=== PATIENT | female | born 1935 | race Caucasian/White ===

== ENCOUNTER 2017-04-15 06:50 | Day surgery (SDC) | payer MEDICARE, OTHER ==
[2017-04-14 16:14] VITALS: BMI 19.0
[~2017-04-15 06:50] MED LIST: FLU VACC TS2017-18 (>65YR) 0.5 ML SYRINGE IM ONE
[2017-04-15] MEDS ORDERED: diphenhydrAMINE HCl 25 MG CAP ONE (07:11)
[2017-04-15 07:33] VITALS: TEMP 98.2
--- NOTE | 2017-04-15 08:39 | SPC ---
NEPHROSTOMY TUBE EXCHANGE: History: Nephrostomy tube exchange. Dose: 2.2 minutes of fluoroscopy, 31.3 mGy*cm\S\2. Technique: The right sided nephrostomy tube was localized using fluoroscopy. A small amount of iodinated contra st was injected to confirm position. The 12 Iranian nephrostomy tube was cut. An 035 glide wire was i ntroduced into the catheter lumen. Tip was repositioned into the proximal right ureter. The old cath eter was removed and a new 12 Iranian nephrostomy tube was placed over the wire, distal tip in the ri ght renal pelvis. IMPRESSION: Successful right nephrostomy tube exchange. POS: [facility]
[2017-04-15 09:13] LABS: Hematocrit 35.8 % (36.0-47.0); Mean Platelet Volume 8.5 fL (7.4-10.4); Red Blood Cell (RBC) Count 4.58 mill/uL (4.20-5.40); White Blood Cell (WBC) Count 5.7 thou/uL (4.8-10.8)
[2017-04-15 09:37] LABS: Anion Gap 16 mmol/L (10-20); BUN (Urea Nitrogen) 36 mg/dL (9.8-20.1); Calc. Creatinine Clearance 20 mL/min (70-130); Calcium 9.7 mg/dL (7.8-10.44); Carbon Dioxide 23 mmol/L (23-31); Chloride 102 mmol/L (98-107); Estimated GFR-MDRD 25
[2017-04-15] MEDS ORDERED: Ioversol 68 % 50 ML VIAL ONE (12:20)
[2017-04-15] MEDS ORDERED: Promethazine HCl 25 MG/ML VIAL ONE (12:20)
[2017-04-15] MEDS ORDERED: Fentanyl 100 MCG/2 ML VIAL ONE (12:20)
[2017-04-15] MEDS ORDERED: cefTRIAXone\\ROCEPHIN 1 GM VIAL ONE (12:25)
[2017-04-15] MEDS ORDERED: Sodium Chloride 0.9% 100 ML ONE (12:26)
[2017-04-15] MEDS ORDERED: Hydrocortisone Sod Succ/PF 100 mg/2 ml Vial ONE (12:27)
[2017-04-15] MEDS ORDERED: Lidocaine 2% PF 10 ML AMP (For Epidural Use) ONE (12:50)
[2017-04-15] MEDS ORDERED: ePHEDrine/0.9% NaCl/PF SYRINGE 50 mg/10 ml ONE (12:50)
[2017-04-15] MEDS ORDERED: Propofol 200 MG/20 ML VIAL ONE (12:50)
[2017-04-15] MEDS ORDERED: Dexamethasone 20 MG/5 ML VIAL ONE (12:50)
[2017-04-15] MEDS ORDERED: PHENYLEPHRINE-NS 100 MCG/ML 10 ML SYRINGE ONE (12:50)
[2017-04-15] MEDS ORDERED: Glycopyrrolate 0.2 MG/ML 5 ML SYRINGE ONE (12:50)
--- NOTE | 2017-04-15 14:20 | OP ---
DATE OF PROCEDURE: 04/15/2017 PREOPERATIVE DIAGNOSIS: Left ureteral obstruction managed with left stent. POSTOPERATIVE DIAGNOSES: Left ureteral obstruction managed with left stent. PROCEDURE PERFORMED: Cysto removal of left stent, left retrograde, left stent replacement. SURGEON: Dr. Leo Warren ANESTHETIC: General. ESTIMATED BLOOD LOSS: Minimal. FINDINGS: She had no tumor, foreign body, or stone. The stent was able to be cannulated with a 0.0 38 guidewire, it was removed intact. A new stent placed was a 4.8 x 26 cm with no string left attac hed. OPERATIVE TECHNIQUE: After obtaining written and verbal consent from the patient and after receivin g IV antibiotics, she was taken to the operating suite. She was placed in the supine position on th e treatment table. PlexiPulses were placed on her lower extremities and turned on. She was given a general anesthetic, oral obturator intubation. She was placed in dorsal lithotomy position and tahir rilely prepped and draped. Cystoscopy was performed with a 22-Trinidadian sheath. This was well lubrica tyler and passed under direct vision through the female urethra into the bladder with aid of a 30-degr ee lens and video camera and monitor. The bladder was filled and emptied a number of times. The di stal end of the left double-J stent was grasped and brought out through the urethral meatus. A scou t KUB had been taken with the fluoroscopy unit initially. A 0.038 guidewire was fed through this s tent and up into the renal pelvis. The stent was removed intact over the guidewire, a 5 Trinidadian Poll ack catheter was placed over the guidewire. The guidewire was removed. Contrast injected to fill o ut the upper collecting system. The guidewire was replaced. The open-ended catheter was removed, a nd the stent was placed over the guidewire and pushed into place with aid of a pusher so its proxima l end coiled in the renal pelvis and its distal end coiled in the bladder when the wire was removed. The patient at this point was taken out of dorsal lithotomy position, awakened, extubated, and butch en by stretcher to the recovery room.
--- NOTE | 2017-04-15 14:55 | RAD ---
SINGLE INTRAOPERATIVE RADIOGRAPH ABDOMEN: History: Left ureteral obstruction. FINDINGS: Single AP view demonstrates the Cystoscope in place. There is catheter and injection of the left col lecting system and renal pelvis. A right sided nephrostomy tube is in place. IMPRESSION: Catheterization and injection of the left ureter. The left ureteral stent is being exchanged. POS: [facility]
[2017-04-15] MEDS ORDERED: Iopamidol 370 76% 50 ML VIAL FS ONE (16:34)
== END 2017-04-15 14:45 | disposition home or self-care (01) ==
LOC: SDC 06:50
PROVIDERS: ATTEND Urology
PROC: 0T778DZ Dilation of Left Ureter with Intraluminal Device, Via Natural or Artificial Opening Endoscopic (ICD-10-PCS; principal; 2017-04-15)
DX: N32.0 Bladder-neck obstruction (principal); N13.1 Hydronephrosis with ureteral stricture, not elsewhere classified; I25.10 Atherosclerotic heart disease of native coronary artery without angina pectoris; I13.0 Hypertensive heart and chronic kidney disease with heart failure and stage 1 through stage 4 chronic kidney disease, or unspecified chronic kidney disease; N18.4 Chronic kidney disease, stage 4 (severe); I50.22 Chronic systolic (congestive) heart failure; F32.9 Major depressive disorder, single episode, unspecified; F41.9 Anxiety disorder, unspecified; J44.9 Chronic obstructive pulmonary disease, unspecified; Z88.2 Allergy status to sulfonamides; Z91.013 Allergy to seafood; Z91.041 Radiographic dye allergy status; Z79.52 Long term (current) use of systemic steroids; Z98.890 Other specified postprocedural states
CPT/HCPCS: 50431; 50435; 52332; 74420; 80048; 85027; C1729; C1758; C1769; 36415; J0696; J1100; J1720; J2001; J2550; J2704; J3010; J7050; Q9967

== ENCOUNTER 2017-08-03 07:42 | Day surgery (SDC) | payer MEDICARE, OTHER ==
[2017-07-31 14:43] VITALS: BMI 20.2
[2017-08-03 08:01] LABS: #Lymphocytes 0.5 thou/uL (1.20-3.40); #Neutrophils 3.4 thou/uL (1.40-6.50); %Basophils 0.8 % (0.0-1.0); %Eosinophils 0.2 % (0.0-10.0); %Lymphocytes 11.8 % (21.0-51.0); %Monocytes 0.4 % (0.0-10.0); %Neutrophils 86.7 % (42.0-75.0); Hemoglobin 11.4 g/dL (12.0-16.0); Mean Corpuscular HGB CONC 30.5 g/dL (32.0-36.0); Mean Corpuscular Hemoglobin 24.1 pg (27.0-31.0); Mean Corpuscular Volume 79.1 fl (81.0-99.0); Mean Platelet Volume 8.3 fL (7.4-10.4); Platelet Count 261 thou/uL (130-400); Red Blood Cell (RBC) Count 4.71 mill/uL (4.20-5.40); White Blood Cell (WBC) Count 3.9 thou/uL (4.8-10.8)
[2017-08-03 08:04] LABS: PTT 25.5 SEC (22.9-36.1); Prothrombin Time 13.5 SEC (12.0-14.7)
[2017-08-03 08:46] VITALS: BP 145/64; TEMP 98.2
[2017-08-03] MEDS ORDERED: Fentanyl 100 MCG/2 ML VIAL ONE (11:00)
[2017-08-03 11:36] LABS: Anion Gap 17 mmol/L (10-20); BUN (Urea Nitrogen) 35 mg/dL (9.8-20.1); Calc. Creatinine Clearance 22 mL/min (70-130); Calcium 9.3 mg/dL (7.8-10.44); Carbon Dioxide 21 mmol/L (23-31); Chloride 105 mmol/L (98-107); Estimated GFR-MDRD 25; Glucose 124 mg/dL (83-110); Potassium 4.2 mmol/L (3.5-5.1); Sodium 139 mmol/L (136-145)
[2017-08-03] MEDS ORDERED: Iothalamate Meglumine 60% 50 ML VIAL FS ONE (12:18)
--- NOTE | 2017-08-03 12:55 | OP ---
DATE OF PROCEDURE: 08/03/2017 PREOPERATIVE DIAGNOSIS: Left ureteral obstruction managed with left double-J stent. POSTOPERATIVE DIAGNOSIS: Left ureteral obstruction managed with left double-J stent. PROCEDURES PERFORMED: Cystoscopy, removal of left stent, replacement of left stent. SURGEON: Dr. Leo Warren ANESTHETIC: General. ESTIMATED BLOOD LOSS: Minimal. FINDINGS: The old stent was encrusted but still patent. A new 4.8 x 24 cm double-J stent was passed . String was not left attached to it. OPERATIVE TECHNIQUE: After obtaining written and verbal consent from the patient, she was taken to [facility] operating suite. She was placed in the supine position on the treatment table. PlexiPulses were placed on her lower extremities and turned on. She was given a general anesthetic, oral obturator in tubation. She was placed in the dorsal lithotomy position and sterilely prepped and draped. Cystosc opy was performed with a 22-Bangladeshi sheath. This was well lubricated and passed under direct vision t hrough the female urethra and into the bladder with aid of a video camera and monitor and 30 degree l ens. The bladder was filled and emptied a number of times as there was some debris on the floor. On ce this was clear, we grasped the distal end of the indwelling double-J stent with a pair of grasping forceps, brought out through the urethral meatus. A 0.038 guidewire up and then removed the stent o claritza the guidewire and discarded it. A 5 Bangladeshi Pollack catheter was placed over the guidewire and pu shed up into the area of the renal pelvis with the wire was removed and about 5 mL of contrast were i njected. There was no extravasation. It was used to fill out the upper collecting system and the wi re was replaced. The open-ended catheter and the open-ended catheter were removed. The 24 cm x 4.8 double-J stent was placed over the guidewire, pushed up into place with aid of a pusher so its proxim al end coiled in the renal pelvis and its distal end coiled in the bladder when the wire was removed. The bladder was drained, the instruments were removed. The patient was awakened, extubated, and ta rose by stretcher to the recovery room.
--- NOTE | 2017-08-03 13:39 | SPC ---
RIGHT NEPHROSTOGRAM AND NEPHROSTOMY TUBE REPLACEMENT: DATE: 08/03/17. HISTORY: Hydronephrosis and ureteral stricture. FLUOROSCOPY: Total time 0.3 minutes with total dose of 2665 mGy*^cm2. TECHNIQUE: After informed consent was obtained, the patient was placed on the angiography table in the prone pos ition. The indwelling right-sided nephrostomy tube and surrounding area were meticulously prepped an d draped in the usual sterile fashion. A tube nephrostogram was performed. The tube was cut and exchanged over a 0.035-inch Bentsen guidewi re for a new 12 Belizean nephrostomy tube. Distal portion was placed in the right renal pelvis. A sma ll amount of contrast was injected confirming placement in the renal pelvis. Contrast was then aspir ated in its entirety. The catheter was flushed and then placed to gravity drainage. A dry sterile d ressing was placed. The patient tolerated the procedure and without immediate complication. The patient was premedicated for iodine allergy prior to this procedure. IMPRESSION: Technically successful 12 Belizean right nephrostomy tube replacement. POS: [facility]
[2017-08-03] MEDS ORDERED: Propofol 200 MG/20 ML VIAL ONE (15:36)
[2017-08-03] MEDS ORDERED: Ondansetron HCl/PF 4 MG/2 ML Vial ONE (15:36)
[2017-08-03] MEDS ORDERED: PHENYLEPHRINE-NS 100 MCG/ML 10 ML SYRINGE ONE (15:36)
[2017-08-03] MEDS ORDERED: Lidocaine 1% PF 5 ML VIAL ONE (15:36)
[2017-08-03] MEDS ORDERED: Hydrocortisone Sod Succ/PF 100 mg/2 ml Vial ONE (15:36)
--- NOTE | 2017-08-04 07:29 | SPC ---
RETROGRADE LEFT UROGRAM: Date: 08-03-17 History: Left ureteral obstruction. Exchange of left ureteral stent. Comparison: 05-05-17 FINDINGS: Provided images demonstrate a right sided nephrostomy tube in place and unchanged in position. A left ureteral stent is noted in place with opacification of the left renal collecting system and proximal left ureter without findings to suggest hydronephrosis. Surgical clips are seen on the left. Again n oted are calcifications overlying the right upper quadrant, likely related to gallbladder calculi. Mu ltiple surgical clips overlie the right hip. No other interval change. IMPRESSION: 1. Opacification of the left renal collecting system without hydronephrosis. Left ureteral stent is n oted in place. POS: [facility]
--- NOTE | 2017-08-04 23:37 | EKG ---
Test Reason : PREOP Blood Pressure : / mmHG Vent. Rate : 088 BPM Atrial Rate : 088 BPM P-R Int : 160 ms QRS Dur : 102 ms QT Int : 392 ms P-R-T Axes : 030 -33 -44 degrees QTc Int : 474 ms Sinus rhythm with frequent Premature ventricular complexes in a pattern of bigeminy Left axis deviation Voltage criteria for left ventricular hypertrophy Prolonged QT Abnormal ECG When compared with ECG of 25-JUN-2016 09:46, Premature ventricular complexes are now Present T wave inversion more evident in Lateral leads QT has lengthened Confirmed by Shruti GRIFFIN ([id number]) on 08/04/2017 11:37:20 PM Referred By: KATIE Confirmed By:Shruti GRIFFIN
== END 2017-08-03 14:28 | disposition home or self-care (01) ==
LOC: SDC 07:42
PROVIDERS: ATTEND Urology
PROC: 0T9780Z Drainage of Left Ureter with Drainage Device, Via Natural or Artificial Opening Endoscopic (ICD-10-PCS; principal; 2017-08-03)
PROC: 0TPB8DZ Removal of Intraluminal Device from Bladder, Via Natural or Artificial Opening Endoscopic (ICD-10-PCS; 2017-08-03)
PROC: 0T778DZ Dilation of Left Ureter with Intraluminal Device, Via Natural or Artificial Opening Endoscopic (ICD-10-PCS; 2017-08-03)
DX: N13.5 Crossing vessel and stricture of ureter without hydronephrosis (principal); I13.0 Hypertensive heart and chronic kidney disease with heart failure and stage 1 through stage 4 chronic kidney disease, or unspecified chronic kidney disease; N18.9 Chronic kidney disease, unspecified; I50.9 Heart failure, unspecified; I25.10 Atherosclerotic heart disease of native coronary artery without angina pectoris; J44.9 Chronic obstructive pulmonary disease, unspecified; J96.90 Respiratory failure, unspecified, unspecified whether with hypoxia or hypercapnia; Z79.2 Long term (current) use of antibiotics; Z79.52 Long term (current) use of systemic steroids; Z79.899 Other long term (current) drug therapy; Z88.2 Allergy status to sulfonamides; Z91.041 Radiographic dye allergy status; Z91.013 Allergy to seafood; Z98.49 Cataract extraction status, unspecified eye; Z98.890 Other specified postprocedural states; Z87.891 Personal history of nicotine dependence
CPT/HCPCS: 50431; 50435; 52332; 74420; 80048; 85025; 85610; 85730; 93005; C1729; C1758; 36415; 93010; J1720; J2001; J2405; J2704; J3010; Q9961

== ENCOUNTER 2017-11-02 08:15 | Day surgery (SDC) | payer MEDICARE, OTHER ==
[2017-11-02] MEDS ORDERED: Fentanyl 100 MCG/2 ML VIAL ONE (09:05)
[2017-11-02] MEDS ORDERED: Propofol 500 MG/50 ML VIAL ONE (09:06)
[2017-11-02 09:12] LABS: Hemoglobin 12.5 g/dL (12.0-16.0); Mean Corpuscular HGB CONC 32.4 g/dL (32.0-36.0); Mean Corpuscular Hemoglobin 27.8 pg (27.0-31.0); Mean Corpuscular Volume 85.8 fl (81.0-99.0); Mean Platelet Volume 7.1 fL (7.4-10.4); Platelet Count 245 thou/uL (130-400); RBC Distribution Width 14.2 % (11.5-14.5); Red Blood Cell (RBC) Count 4.49 mill/uL (4.20-5.40); White Blood Cell (WBC) Count 4.2 thou/uL (4.8-10.8)
[2017-11-02 09:16] LABS: PTT 25.1 SEC (22.9-36.1); Prothrombin Time 13.1 SEC (12.0-14.7)
[2017-11-02] MEDS ORDERED: Ioversol 68 % 50 ML VIAL ONE (09:17)
[2017-11-02 09:26] LABS: Anion Gap 13 mmol/L (10-20); BUN (Urea Nitrogen) 32 mg/dL (9.8-20.1); Calc. Creatinine Clearance 0 mL/min (70-130); Calcium 9.2 mg/dL (7.8-10.44); Carbon Dioxide 23 mmol/L (23-31); Chloride 104 mmol/L (98-107); Estimated GFR-MDRD 25; Glucose 162 mg/dL (83-110); Potassium 4.3 mmol/L (3.5-5.1); Sodium 136 mmol/L (136-145)
[2017-11-02] MEDS ORDERED: Hydrocortisone Sod Succ/PF 100 mg/2 ml Vial ONE ×2 (09:33→13:52)
[2017-11-02] MEDS ORDERED: Lidocaine 2% Jelly 5 ML TUBE ONE (09:36)
--- NOTE | 2017-11-02 11:21 | RAD ---
RETROGRADE LEFT UROGRAM AND STENT REPLACEMENT: Date: 11/02/17 COMPARISON: 08/03/17. FINDINGS: Lens Grinding Machine Operator image demonstrates partial visualization of a right nephrostomy tube, also seen on prior study. Left ureteral stent is noted in place. Subsequent imaging demonstrates a guidewire in place in the l eft ureter with opacification of left renal collecting system demonstrating no significant hydronephr osis with mild dilatation of superior pole left renal emeli. Final image again demonstrates a left ur eteral stent in place, proximal portion overlying the renal pelvis and distal portion overlying the u rinary bladder. Calcifications overlie the right upper quadrant related to cholelithiasis. Surgical clips overlie the inguinal regions bilaterally. IMPRESSION: Evidence of replacement of left ureteral stent. Right nephrostomy tube is noted in place. Correlation with intraoperative findings is recommended. POS: [facility]
[2017-11-02] MEDS ORDERED: PROPOFOL 200 MG/20 ML VIAL ONE (13:52)
--- NOTE | 2017-11-02 14:15 | OP ---
DATE OF PROCEDURE: 11/02/2017 PREOPERATIVE DIAGNOSIS: Left ureteral obstruction managed with left ureteral stent. POSTOPERATIVE DIAGNOSIS: Left ureteral obstruction managed with left ureteral stent. PROCEDURE PERFORMED: Cysto removal of left stent, left retrograde and placement of left stent. SURGEON: Dr. Leo Warren. ANESTHETIC: Sedation. ESTIMATED BLOOD LOSS: None. FINDINGS: The old stent was intact and patent. She had some debris on the floor of the bladder, whi ch is consistent with what she normally has. Specimen removed with old stent was discarded. OPERATIVE TECHNIQUE: After obtaining written and verbal consent from the patient, she was taken to [facility] operating suite. She was placed in supine position on the treatment table. PlexiPulses were plac ed on her lower extremities and turned on. She was given sedation, placed in the dorsal lithotomy po sition and sterilely prepped and draped. Cystoscopy was performed with a 22-Swazi sheath. This was well lubricated and passed under direct vision with a 30 degree lens and a video camera and monitor into the urinary bladder through the female urethra. The bladder was filled and emptied few times to get some of the debris off the floor of the bladder. The distal end of the indwelling double-J sten t was grasped and brought out through the urethral meatus. A 0.038 guidewire was fed through this an d up near the renal pelvis. The stent was removed over the wire and discarded. The guidewire was ba ckloaded through the cystoscope and a 5 Swazi Pollack catheter was advanced up to the region of the renal pelvis. The wire was removed and about 3 mL of contrast were injected to fill out the upper co llecting system. The wire was replaced. The open-ended catheter and a new 4.8 Swazi x 24 cm double -J stent was passed over the guidewire and pushed up in place with aid of a pusher, so its proximal e nd coiled in the renal pelvis and its distal end coiled in the bladder when the wire was removed. Th e bladder was drained. The instruments were removed. The patient was taken out of dorsal lithotomy position and awakened and was taken to the recovery room. She did receive Cipro p.o., Benadryl, and prednisone p.o. over in Radiology department prior to the replacement of her nephrostomy tube before this case started, so she received no other antibiotics or steroid prep here.
== END 2017-11-02 11:30 | disposition home or self-care (01) ==
LOC: SDC 08:15
PROVIDERS: ATTEND Urology
PROC: 0T778DZ Dilation of Left Ureter with Intraluminal Device, Via Natural or Artificial Opening Endoscopic (ICD-10-PCS; principal; 2017-11-02)
PROC: 0TP98DZ Removal of Intraluminal Device from Ureter, Via Natural or Artificial Opening Endoscopic (ICD-10-PCS; 2017-11-02)
DX: N13.5 Crossing vessel and stricture of ureter without hydronephrosis (principal); Z88.5 Allergy status to narcotic agent; Z88.2 Allergy status to sulfonamides; Z91.013 Allergy to seafood; Z91.041 Radiographic dye allergy status; Z98.890 Other specified postprocedural states
CPT/HCPCS: 36415; 50435; 74420; 80048; 85027; 85610; 85730; C1729; C1758; C1769; J1720; J2704; J3010; Q9967

== ENCOUNTER 2018-02-01 06:50 | Day surgery (SDC) | payer MEDICARE, OTHER ==
[2018-01-29 09:20] VITALS: BMI 22.1
[~2018-02-01 06:50] MED LIST changes: -FLU VACC TS2017-18 (>65YR) 0.5 ML SYRINGE IM ONE; +Lidocaine 1% PF 5 ML VIAL ONE; +Sodium Bicarbonate 2.5 MEQ/5 ML VIAL ONE
[2018-02-01 07:08] LABS: #Lymphocytes 0.8 thou/uL (1.20-3.40); #Neutrophils 4.2 thou/uL (1.40-6.50); %Basophils 0.3 % (0.0-1.0); %Eosinophils 0.3 % (0.0-10.0); %Lymphocytes 16.3 % (21.0-51.0); %Monocytes 0.6 % (0.0-10.0); %Neutrophils 82.6 % (42.0-75.0); Hemoglobin 12.9 g/dL (12.0-16.0); Mean Corpuscular HGB CONC 31.9 g/dL (32.0-36.0); Mean Corpuscular Hemoglobin 27.9 pg (27.0-31.0); Mean Corpuscular Volume 87.7 fL (78.0-98.0); Mean Platelet Volume 8.1 fL (7.4-10.4); Platelet Count 181 thou/uL (130-400); RBC Distribution Width 13.2 % (11.5-14.5); Red Blood Cell (RBC) Count 4.62 mill/uL (4.20-5.40)
[2018-02-01 07:17] LABS: PTT 25.7 SEC (22.9-36.1); Prothrombin Time 12.8 SEC (12.0-14.7)
[2018-02-01 07:28] LABS: Anion Gap 10 mmol/L (10-20); BUN (Urea Nitrogen) 27 mg/dL (9.8-20.1); Calc. Creatinine Clearance 23 mL/min (70-130); Calcium 8.8 mg/dL (7.8-10.44); Carbon Dioxide 26 mmol/L (23-31); Chloride 105 mmol/L (98-107); Estimated GFR-MDRD 25; Glucose 174 mg/dL (83-110); Sodium 136 mmol/L (136-145)
[2018-02-01] MEDS ORDERED: Fentanyl 100 MCG/2 ML VIAL ONE (09:06)
[2018-02-01] MEDS ORDERED: Sodium Chloride 0.9% 100 ML ONE (09:15)
[2018-02-01] MEDS ORDERED: cefTRIAXone\\ROCEPHIN 1 GM VIAL ONE (09:15)
[2018-02-01] MEDS ORDERED: Iothalamate Meglumine 60% 50 ML VIAL FS ONE (09:19)
--- NOTE | 2018-02-01 10:53 | SPC ---
RIGHT NEPHROSTOGRAM AND NEPHROSTOMY TUBE REPLACEMENT: Date: 02-01-18 History: Ureteral obstruction on right with chronic indwelling right nephrostomy tube. Replacement re quested. Technique: After informed consent was obtained, the patient was placed on the angiography table in supine positi on. The right sided nephrostomy tube and surrounding area were meticulously prepped and draped in the usual sterile fashion. The nephrostomy tube as puncture with an 18 gauge needle with sterile contras t filled syringe, and nephrostogram was performed. There is no evidence of hydronephrosis and the con trast does extend into the proximal right ureter. The tube was cut and exchanged over a .035 inch [employer] guidewire for a 10 Bulgarian nephrostomy tube. The distal portion was coiled within the renal pelvis . Contrast injection confirms placement within the right collecting system. The catheter was placed t o gravity drainage. Catheter was sutured in place utilizing 2-0 suture material. A dry sterile dressi ng was placed. The patient tolerated the procedure well without immediate complication. FINDINGS: Patient has indwelling 12 Bulgarian nephrostomy tube in place. However, 12 Bulgarian nephrostomy tube was n ot available for replacement and after a discussion with the patient, the 12 Bulgarian catheter was exch anged for a 10 Bulgarian nephrostomy tube. Patient is to return if she experiences leakage around the tu be. 12 Bulgarian nephrostomy tube will be placed when patient returns for nephrostomy tube change. IMPRESSION: Technically successful right nephrostomy tube replacement. Nephrostogram is similar to study on . There is no evidence of hydronephrosis. POS: [facility]
[2018-02-01] MEDS ORDERED: PROPOFOL 200 MG/20 ML VIAL ONE (12:09)
[2018-02-01] MEDS ORDERED: Lidocaine 1% PF 5 ML VIAL ONE (12:09)
[2018-02-01] MEDS ORDERED: diphenhydrAMINE 50 MG/ML VIAL ONE (12:09)
--- NOTE | 2018-02-01 12:32 | RAD ---
RETROGRADE LEFT UROGRAM: Date: 02/01/18 HISTORY: Left ureteral stent replacement. FINDINGS: Drafter image demonstrates right nephrostomy tube in place. A left ureteral stent is in place. Surgical clips overlie each inguinal region and overlie the abdomen. Gallbladder calculi are visualized in th e right upper quadrant. Subsequent images demonstrate replacement of the left ureteral stent over a guidewire with final imag e demonstrated double pigtail left ureteral stent in place with proximal portion of the stent in the left renal pelvis with opacification of the left renal collecting system without hydronephrosis. The distalmost portion of the ureteral stent overlies the expected location of the urinary bladder. IMPRESSION: 1. Imaging demonstrating replacement of left ureteral stent. 2. Right nephrostomy tube in place. POS: [facility]
--- NOTE | 2018-02-01 13:47 | OP ---
DATE OF PROCEDURE: 02/01/2018 PREOPERATIVE DIAGNOSIS: Obstructive left ureter managed with left ureteral stent. POSTOPERATIVE DIAGNOSIS: Obstructive left ureter managed with left ureteral stent. PROCEDURE PERFORMED: Cysto, removal of keft stent retrograde and left stent replacement. SURGEON: Dr. Leo Warren. ANESTHETIC: TIVA. ESTIMATED BLOOD LOSS: Minimal. FINDINGS: She had a lot of debris on the floor of the bladder which she consistently has, her urinar y tract generally has colonized. The old stent was still patent. The new stent that was placed was a 4.8 x 26 cm without a string attached. OPERATIVE TECHNIQUE: Obtain written verbal consent from the patient after receiving IV Rocephin, she was taken the operating suite. She was placed in the supine position on the treatment table. Plexi Pulses placed on her lower extremities and turned on. She was given just some TIVA anesthetic placed in the dorsal lithotomy position and sterilely prepped and draped. Cystoscopy was performed with a 22-Bolivian sheath. This was well lubricated and passed under direct vision through the female urethra into the urinary bladder with aid of a 30-degree lens, a video camera and monitor. The bladder was filled and emptied a number of times to wash out the debris on the floor of the bladder. At this poi nt, the distal end of the double-J stent was grasped and brought out through the urethral meatus. A guidewire was fed up through this. Fluoroscopy was used to help guide as well doing this. The old s tent was removed over the guidewire. It was backloaded through the cystoscope sheath with a 5-Bolivian Pollack catheter and then the Pollack catheter was advanced up into the proximal ureter/renal pelvic region. The wire was removed and about 5 mL of contrast was injected through this filling out a non dilated renal caliceal system. She had received Benadryl and prednisone this morning and last night in preparation for this, as well as for her radiologic procedure earlier. At this point, the guidewi re was removed through the open-ended catheter. The open-ended catheter was removed, and the stent w as brought in and placed over the guidewire and pushed up in place with the aid of a pusher so its pr oximal end coiled in the renal pelvis and distal end coiled in the bladder and the wire was removed. The bladder was drained, the instruments were removed. The patient was taken out of the dorsal lith otomy position. She was awakened and extubated and taken by stretcher to the recovery room.
[2018-02-01 15:23] VITALS: BP 140/49; TEMP 98.4
== END 2018-02-01 11:30 | disposition home or self-care (01) ==
LOC: SDC 06:50
PROVIDERS: ATTEND Urology
PROC: 0T778DZ Dilation of Left Ureter with Intraluminal Device, Via Natural or Artificial Opening Endoscopic (ICD-10-PCS; principal; 2018-02-01)
PROC: 0TP98DZ Removal of Intraluminal Device from Ureter, Via Natural or Artificial Opening Endoscopic (ICD-10-PCS; 2018-02-01)
DX: N13.5 Crossing vessel and stricture of ureter without hydronephrosis (principal); N32.89 Other specified disorders of bladder; J44.9 Chronic obstructive pulmonary disease, unspecified; I10 Essential (primary) hypertension; Z79.899 Other long term (current) drug therapy; Z88.2 Allergy status to sulfonamides; Z91.013 Allergy to seafood; Z91.041 Radiographic dye allergy status
CPT/HCPCS: 50431; 50435; 52332; 74420; 75984; 80048; 85025; 85610; 85730; C1758; 36415; J0696; J2001; J3010; J7050; Q9961

== ENCOUNTER 2018-02-06 14:55 | Inpatient (IN) | payer MEDICARE, OTHER ==
[2018-02-06] MEDS ORDERED: Piperacillin/Tazobactam 4.5 GM VIAL ONE (15:17)
[2018-02-06 15:30] LABS: Actual Bicarbonate (HCO3a) 25.5 mEq/L (22-28); CO2 Tension 44.1 mmHg (35.0-45.0); O2 Tension (PaO2) 87.7 mmHg (> 60.0); pH, Arterial 7.38 (7.35-7.45)
[2018-02-06 15:31] LABS: Analyzer IN Cardio ER; Base Excess (BEa) 0.1 mEq/L (-2.0 to +3.0); Calcium, Ionized 1.2 mmol/L (1.12-1.30); Puncture Site LBA
[2018-02-06 15:32] LABS: ALV-art Gradient 142.375 (0-20)
[2018-02-06 15:46] LABS: #Basophils 0.1 thou/uL (0.0-0.2); #Eosinphils 0.3 thou/uL (0.0-0.7); #Lymphocytes 3.4 thou/uL (1.20-3.40); #Monocytes 0.5 thou/uL (0.11-0.59); %Basophils 1.1 % (0.0-1.0); %Eosinophils 2.9 % (0.0-10.0); %Lymphocytes 29.7 % (21.0-51.0); %Monocytes 4.4 % (0.0-10.0); %Neutrophils 61.9 % (42.0-75.0); Hemoglobin 13.4 g/dL (12.0-16.0); Mean Corpuscular HGB CONC 32.6 g/dL (32.0-36.0); Mean Corpuscular Hemoglobin 28.5 pg (27.0-31.0); Mean Corpuscular Volume 87.2 fL (78.0-98.0); Mean Platelet Volume 7.5 fL (7.4-10.4); Platelet Count 199 thou/uL (130-400); RBC Distribution Width 13.5 % (11.5-14.5); Red Blood Cell (RBC) Count 4.69 mill/uL (4.20-5.40); White Blood Cell (WBC) Count 11.3 thou/uL (4.8-10.8)
[2018-02-06 15:47] LABS: Bilirubin Negative (Negative); Blood, Urine Large (Negative); Glucose, Urine (Dipstick) Negative (Negative); Leukocyte Small (Negative); Nitrite Negative (Negative); Protein, Urine (Dipstick) 100 mg/dL (Neg-Trace); Specific Gravity, Urine 1.025 (1.005-1.030); Urobilinogen 0.2 mg/dL (0.2-1.0); pH, Urine 6.5 (5.0-9.0)
[2018-02-06 15:48] LABS: Clarity Hazy (Clear)
[2018-02-06 15:55] LABS: ALT (SGPT) 11 U/L (8-55); AST (SGOT) 13 U/L (5-34); Albumin 3.8 g/dL (3.4-4.8); Alkaline Phosphatase 85 U/L (40-150); Anion Gap 15 mmol/L (10-20); BUN (Urea Nitrogen) 24 mg/dL (9.8-20.1); Bilirubin, Total 0.5 mg/dL (0.2-1.2); Calc. Creatinine Clearance 0 mL/min (70-130); Calcium 9.1 mg/dL (7.8-10.44); Carbon Dioxide 22 mmol/L (23-31); Chloride 106 mmol/L (98-107); Estimated GFR-MDRD 31; Globulin 3.2 g/dL (2.4-3.5); Glucose 98 mg/dL (83-110); Potassium 4.9 mmol/L (3.5-5.1); Sodium 138 mmol/L (136-145)
[2018-02-06 15:57] LABS: Bacteria/HPF None Seen HPF (None Seen); Hyaline Casts/LPF NONE SEEN LPF (0-3 Hyaline); RBC/HPF GREATER THAN 50-TNTC HPF (0-3); Squamous Epithelial 0-3 HPF (0-3); Transitional Epithelial 0-3 HPF (0-3)
--- NOTE | 2018-02-06 16:08 | RAD ---
PORTABLE AP CHEST X-RAY 02/06/18 HISTORY: Dyspnea. COMPARISON: 10/09/16. FINDINGS: The cardiac silhouette is magnified by projection. Increased interstitial densities are again seen th roughout the lungs bilaterally, overall similar to the prior exam suggesting chronic interstitial fib rotic lung changes. No new focal area of consolidation or pleural fluid is seen. Vascular calcificati ons seen in the thoracic aorta. There is osteopenia. No other interval change. IMPRESSION: 1. 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 2. Osteopenia. POS: [facility]
[2018-02-06 16:47] LABS: Troponin I Less than 0.010 ng/mL (< 0.028)
[2018-02-06] MEDS ORDERED: Furosemide 20 MG/2 ML VIAL ONE (17:38)
--- NOTE | 2018-02-06 19:27 | NM ---
NUCLEAR MEDICINE LUNG SCAN: 02/06/18 HISTORY: Dyspnea. COMPARISON: Chest x-ray done earlier today. The ventilation portion of the study is performed using 16.4 millicuries Xenon 133 gas. This shows so me minimal air trapping. On the perfusion study, examination was performed using 6.5 millicuries 99m technetium MAA. This show s some small nonsegmental peripheral defects. Given the appearance of the chest x-ray which shows chr onic lung change, I would place this as a low probability of pulmonary embolus. IMPRESSION: Findings compatible with low probability for pulmonary embolus. POS: [facility]
[2018-02-06 19:51] LABS: Troponin I 0.013 ng/mL (< 0.028)
[2018-02-06] MEDS ORDERED: Melatonin 3 MG TAB PO PRN (21:44)
[2018-02-06] MEDS ORDERED: Mag-Al 1200 mg/1200 mg/30 ML UDCUP PO PRN (21:48)
[2018-02-06] MEDS ORDERED: traMADol HCl 50 MG TAB PO PRN (21:48)
[2018-02-06] MEDS ORDERED: Ondansetron HCl/PF 4 MG/2 ML Vial IVP PRN (21:48)
[2018-02-06] MEDS ORDERED: cloNIDine 0.1 MG TAB PO PRN (21:48)
[2018-02-06] MEDS ORDERED: Diabetic Tussin 200 MG/10 ML UDCUP PO PRN (21:48)
[2018-02-06] MEDS ORDERED: Loratadine 10 MG TAB PO PRN (21:48)
[2018-02-06] MEDS ORDERED: Nitroglycerin 0.4 MG TAB (25 Tab Bottle) SL PRN (21:48)
[2018-02-06] MEDS ORDERED: Acetaminophen 325 MG TAB PO PRN (21:48)
[2018-02-06] MEDS ORDERED: hydrALAZINE 20 MG/ML VIAL SLOW IVP PRN (21:48)
[2018-02-06] MEDS ORDERED: Senokot 8.6 MG TAB PO PRN ×2 (21:48)
[2018-02-06] MEDS ORDERED: Benzonatate 100 MG CAP PO PRN (21:48)
[2018-02-06] MEDS ORDERED: Bisacodyl 5 MG TAB PO PRN ×2 (21:48)
[2018-02-06] MEDS ORDERED: Calcium Carbonate 500 MG ChewTAB PO PRN (21:48)
[2018-02-06 22:01] VITALS: BMI 23.4
--- NOTE | 2018-02-07 00:58 | HP ---
DATE OF ADMISSION: 02/06/2018 Please note that the patient was seen prior to midnight. CHIEF COMPLAINT: Shortness of breath. PRIMARY CARE PHYSICIAN: Noni Alston MD [employer]: Dr. Moralez. HISTORY OF PRESENT ILLNESS: Ms. Branham is an 82-year-old female with past medical history of COPD and chronic respiratory failure on home oxygen as well as chronic kidney disease, hypertension, AAA repa ir, and coronary artery disease who presented to the emergency room with the above-mentioned complain t. History is mainly obtained by the patient herself who is a rather poor historian as she is very u pset currently because of the way she is feeling. Electronic medical records have been reviewed. Th e patient was last admitted to our facility in 10/2016 and was treated for acute on chronic systolic heart failure as well as acute COPD exacerbation and renal stenting. She has history of obstructive uropathy requiring multiple procedures and stenting. Her last echocardiogram in our system is from 0 03/2016 which showed ejection fraction of 25-30% as well as diastolic dysfunction. The patient has no idea about this diagnosis and at this time, she reports that she has never been told that she has an y congestive heart failure. She normally uses 3 liters of oxygen at home which fairly controls her s ymptoms. Ms. Branham presented to the emergency room this morning with complaints of sudden onset of severe shor tness of breath. She reports her symptoms just came on all of a sudden this morning. She also compl ained of cough and bilateral feet swelling. She denies any chest pain. She denies any recent illnes ses. On presentation to the emergency room, she was 85% on 3 liters oxygen. She was given nebulizers and Solu-Medrol en route to the emergency room. In the ER, she underwent a general examination, which in cluded a chest x-ray which was unremarkable except for chronic interstitial changes. Cardiac enzymes were trended and were negative. A BNP was checked and it was found to be elevated at 1579. Creatin ine at baseline is 1.60. Her urinalysis showed large blood with rbc's as well as small leukocyte est erase and multiple wbc's. WBC count in the serum is 11.3 without any left shift. Her D-dimer is bia vated at 3.15. She underwent a pulmonary perfusion scan, which was low probability for PE. She is n ow being admitted to the hospital for acute hypoxic respiratory failure secondary to acute congestive heart failure exacerbation as well as acute COPD. She has been given 20 mg of Lasix as well as Zosy n and Levaquin in the emergency room. PAST MEDICAL HISTORY: 1. Chronic respiratory failure, on home oxygen. 2. COPD. 3. Hypertension. 4. Chronic kidney disease, stage 3. 5. History of obstructive uropathy requiring multiple procedures by Dr. Warren of Urology. 5. Coronary artery disease. 6. History of aortic aneurysm repair. 7. Chronic systolic heart failure, EF 20-25% range. PAST SURGICAL HISTORY: 1. Multiple renal stent. 2. Aortic aneurysm repair. 3. Thrombectomy. 4. History of hiatal hernia repair. ALLERGIES: IODINE, SHELLFISH and SULFONAMIDE. SOCIAL HISTORY: She lives at home. She is a former smoker. No alcohol or drug abuse. CODE STATUS: FULL CODE. This was discussed with the patient. FAMILY HISTORY: Negative for any premature coronary artery disease or inheritable diseases. HOME MEDICATIONS: As follows, albuterol inhaler q.i.d. p.r.n., Lasix 40 mg daily, vitamin D3 of 50,0 00 units every 7 days, Symbicort 2 puff inhalation b.i.d., ProAir as needed, Benadryl b.i.d. as neede d, DuoNeb 4 hours as needed and gabapentin 1 capsule p.o. t.i.d. REVIEW OF SYSTEMS: A 12-point review of systems is done. It is negative except for those mentioned in the history and physical. LABORATORY DATA: CBC shows WBCs at 11.3, otherwise unremarkable. D-dimer 3.15. ABG shows pH of 7.3 8, pCO2 of 44, oxygen 87 on BiPAP. Serum chemistry, bicarbonate 22, BUN 24, creatinine 1.60, which i s at baseline. Lactic acid normal. Cardiac enzymes normal. BNP 1579. Urinalysis as per HPI. Ches t x-ray by my review shows chronic fibrotic lung changes without any acute changes. PHYSICAL EXAMINATION: VITAL SIGNS: Most recent vital signs, temperature 96.4, pulse of 90, respirations 24, saturating 94% on 4 liters nasal cannula, blood pressure 147/72. GENERAL: She is in mild to moderate respiratory distress and appears very upset currently. After so me calming down, she settles and her respiratory rate improves. HEENT: Mucous membranes are slightly dry. No oropharyngeal exudate or erythema. Head is normocepha lic, atraumatic. Pupils are equal, reactive to light and accommodation. Extraocular movements are i ntact. NECK: Supple without any lymphadenopathy, JVD or bruit. CHEST: Clear to auscultation with few bibasilar crackles, without any significant wheezes heard. Ra te and rhythm is regular without any significant murmurs. ABDOMEN: Soft, nontender, nondistended with positive bowel sounds. EXTREMITIES: Free of any cyanosis, clubbing, or edema. NEUROLOGIC: Nonfocal. SKIN: Free of any rashes or bruises. I feel warm and dry to touch. PSYCHIATRIC: Agitation noticed. IMPRESSION AND PLAN: 1. Acute on chronic hypoxic respiratory failure. This is multifactorial at this time. The patient appears to be in acute congestive heart failure and based on her last echocardiogram, it seems to be a combination of systolic and diastolic. She will be diuresed with IV Lasix and we will consult [facility] as well as provide her with heart failure education. We will get Cardiology consult ation and obtain another echocardiogram. If her ejection fraction indeed is still less than 30%, her home medications need to be optimized and she would need to either have a LifeVest versus AICD. Ple ase note that the patient is a FULL CODE. The patient also seems to be having mild chronic obstructive pulmonary disease exacerbation. She kody l be treated with IV Solu-Medrol and nebulizer scheduled as well as p.r.n. We will continue her Symb icort and provide symptomatic and supportive care. The patient seems to be on the BiPAP at the emerg ency room which has been weaned off by the time I have examined the patient. She remains a FULL CODE . 2. Acute combined congestive heart failure. As #1, obtain transthoracic echocardiogram and consult Cardiology for further recommendation if she still has a cardiomyopathy. Continue to diurese with st rict I's and O's and fluid restricted heart healthy diet. 3. Hematuria and pyuria. The patient has history of significant urological procedures. At this jeanette e, we will wait for the results of the urine culture instead of starting antibiotics. Blood cultures have also been sent, which we will follow. 4. Chronic kidney disease seems to be stable and at baseline. We will avoid any nephrotoxic medicat ions. 5. Chronic respiratory failure on home oxygen. We will consult Pulmonary physician, Dr. Moralez while in the hospital. 6. History of AAA repair. 7. History of urolithiasis with multiple procedures, currently at baseline. She will follow up with Dr. Warren as an outpatient. 8. Code status: FULL CODE is discussed with the patient in detail. 9. Deep venous thrombosis and gastrointestinal prophylaxis. 10. History of breast cancer in the past. DISPOSITION: Ms. Branham is currently being admitted to the hospital with acute hypoxic respiratory fa ilure. Estimated length of stay is at least 2-3 midnight. Further management will depend upon her c linical course.
[2018-02-07] MEDS: Furosemide 40 MG/4 ML VIAL SLOW IVP SCH ×2 (06:13→14:32)
[2018-02-07] MEDS ORDERED: Non-Formulary Item 1 EACH (Budesonide-Formoterol [Symbicort 160-4.5] 2 PUFF) INH SCH (06:30)
[2018-02-07] MEDS ORDERED: Mometasone/Formoterol 120 PUFF INHALER INH SCH (06:30)
[2018-02-07 06:39] LABS: #Lymphocytes 0.9 thou/uL (1.20-3.40); #Monocytes 0.2 thou/uL (0.11-0.59); #Neutrophils 4.8 thou/uL (1.40-6.50); %Basophils 0.4 % (0.0-1.0); %Eosinophils 0.2 % (0.0-10.0); %Lymphocytes 15.5 % (21.0-51.0); %Monocytes 3.2 % (0.0-10.0); %Neutrophils 80.6 % (42.0-75.0); Hemoglobin 12.4 g/dL (12.0-16.0); Mean Corpuscular HGB CONC 32.4 g/dL (32.0-36.0); Mean Corpuscular Volume 86.3 fL (78.0-98.0); Mean Platelet Volume 7.8 fL (7.4-10.4); Platelet Count 181 thou/uL (130-400); RBC Distribution Width 13.5 % (11.5-14.5); Red Blood Cell (RBC) Count 4.44 mill/uL (4.20-5.40)
[2018-02-07 06:49] LABS: Anion Gap 13 mmol/L (10-20); BUN (Urea Nitrogen) 30 mg/dL (9.8-20.1); Calc. Creatinine Clearance 29 mL/min (70-130); Calcium 9.1 mg/dL (7.8-10.44); Carbon Dioxide 26 mmol/L (23-31); Chloride 103 mmol/L (98-107); Estimated GFR-MDRD 30; Glucose 105 mg/dL (83-110); Potassium 5.8 mmol/L (3.5-5.1); Sodium 136 mmol/L (136-145)
[2018-02-07 08:01] LABS: Potassium 6.1 mmol/L (3.5-5.1)
[2018-02-07] MEDS ORDERED: Albuterol Sulfate 2.5 mg/3 ml Neb NEB SCH (08:30)
[2018-02-07] MEDS ORDERED: Insulin Regular 300 UNITS/3 ML VIAL IVP SCH (08:30)
[2018-02-07] MEDS ORDERED: Dextrose 50% Abboject 50 ML SYRINGE SLOW IVP SCH (08:30)
[2018-02-07] MEDS ORDERED: Sodium Bicarb 50 MEQ/50 ML Abboject 8.4% SYRINGE IVP SCH (08:30)
[2018-02-07] MEDS ORDERED: Heparin 5,000 UNITS/ML VIAL SC SCH (09:00)
[2018-02-07] MEDS ORDERED: Famotidine 20 MG TAB PO SCH ×2 (09:00)
[2018-02-07] MEDS: Gabapentin 300 MG CAP PO SCH ×2 (09:04→14:32)
--- NOTE | 2018-02-07 12:33 | PDOC.PN ---
- Subjective Encounter Start Date: 02/07/18 Encounter Start Time: 10:00 Patient seen and examined for Resp failure. No new complaints. No overnight events - Objective Resuscitation Status: Resuscitation Status FULL:Full Resuscitation MAR Reviewed: Yes Vital Signs & Weight: Vital Signs (12 hours) Temp Pulse Resp BP Pulse Ox 02/07/18 11:55 98.4 F 87 18 121/53 L 92 L 02/07/18 09:48 86 18 02/07/18 09:45 85 16 02/07/18 08:00 97.5 F L 73 18 97 02/07/18 07:30 86 12 02/07/18 07:20 100 02/07/18 07:19 86 12 02/07/18 07:05 97.5 F L 73 18 151/67 H 97 02/07/18 04:00 96.4 F L 69 14 146/63 H 97 Weight Weight 159 lb 14.4 oz I&O: 02/06/18 02/07/18 02/08/18 06:59 06:59 06:59 Intake Total 250 Output Total 775 Balance -525 Result Diagrams: 02/07/18 06:28 02/07/18 07:30 EKG Reviewed by me: Yes (Tele SR) Phys Exam - Physical Examination Constitutional: NAD Neck: no JVD Respiratory: no wheezing, no rhonchi Scat rales at bases, Symmetrical, Mild accessory muscle use Cardiovascular: RRR, no rub no heaves/pulsations Gastrointestinal: soft, non-tender, no distention, positive bowel sounds Musculoskeletal: no edema Neurological: moves all 4 limbs Dx/Plan - Plan DVT proph w/SCDs IMPRESSION: Acute on chronic hypoxic Resp failure COPD Exacerbation Acute on Chronic systolic HF exacerbation Hyperkalemia CKD 3 HTN PLAN: Add Ceftriaxone and Doxy Cont Steroids Cont diuretics Consult Nephrology for CKD 3 with hyperkalemia, Also give Insulin - D50, Kayexalate, Nebs Hold Heparin due to hyperkalemia Review of Systems - Review of Systems Respiratory: negative: Cough, Dry, Shortness of Breath, Hemoptysis, SOB with Excertion, Pleuritic Pain, Sputum, Wheezing Cardiovascular: negative: chest pain, palpitations, orthopnea, paroxysmal nocturnal dyspnea, edema, light headedness, other - Medications/Allergies Allergies/Adverse Reactions: Allergies Allergy/AdvReac Type Severity Reaction Status Date / Time iodine Allergy Hives Verified 01/29/18 09:20 shellfish derived Allergy Nausea Verified 01/29/18 09:20 Sulfa (Sulfonamide Allergy Hives Verified 01/29/18 09:20 Antibiotics) Medications: Current Medications Acetaminophen (Tylenol) 650 mg PO Q4H PRN PRN Reason: Headache/Fever or Pain Al Hydroxide/Mg Hydroxide (Maalox) 30 ml PO Q6H PRN PRN Reason: Heartburn or Indigestion Albuterol/Ipratropium (Duoneb) 3 ml NEB [id number] Last Admin: 02/07/18 09:48 Dose: 3 ml Albuterol/Ipratropium (Duoneb) 3 ml NEB [id number] PRN PRN Reason: SOB &/or Wheezing Benzonatate (Tessalon) 100 mg PO Q4H PRN PRN Reason: Cough Bisacodyl (Dulcolax) 10 mg PO DAILYPRN PRN PRN Reason: Constipation Calcium Carbonate (Tums) 1,000 mg PO Q4H PRN PRN Reason: Heartburn or Indigestion Calcium/Vitamin D (Caltrate 600 + Vit D) 1 tab PO BID-[facility] Clonidine (Catapres) 0.1 mg PO Q4H PRN PRN Reason: Systolic BP > 160 Famotidine (Pepcid) 20 mg PO DAILY [facility] Last Admin: 02/07/18 09:04 Dose: Not Given Furosemide (Lasix) 40 mg SLOW IVP 0600,1400 [facility] Last Admin: 02/07/18 06:13 Dose: 40 mg Gabapentin (Neurontin) 300 mg PO TID [facility] Last Admin: 02/07/18 09:04 Dose: 300 mg Guaifenesin (Robitussin Sf) 200 mg PO Q4H PRN PRN Reason: Cough Hydralazine HCl (Apresoline) 10 mg SLOW IVP Q4H PRN PRN Reason: Systolic BP > 170 Loratadine (Claritin) 10 mg PO DAILYPRN PRN PRN Reason: Sinus Symptoms Melatonin (Melatonin) 3 mg PO HS PRN PRN Reason: Insomnia Last Admin: 02/06/18 22:47 Dose: 3 mg Methylprednisolone Sodium Succinate (Solu-Medrol) 40 mg IVP Q6HR [facility] Last Admin: 02/07/18 11:58 Dose: 40 mg Mometasone Furoate/Formoterol Fumar (Dulera 200 Mcg/5 Mcg Inhaler) 2 puff INH BID-RT [facility] Last Admin: 02/07/18 07:30 Dose: 2 puff Nitroglycerin (Nitrostat) 0.4 mg SL Q5MIN PRN PRN Reason: Chest Pain Ondansetron HCl (Zofran) 4 mg IVP Q6H PRN PRN Reason: Nausea/Vomiting Last Admin: 02/07/18 03:52 Dose: 4 mg Senna (Senokot) 2 tab PO HSPRN PRN PRN Reason: Constipation Sodium Chloride (Flush - Normal Saline) 10 ml IVF Q12HR [facility] Last Admin: 02/07/18 09:04 Dose: 10 ml Sodium Chloride (Flush - Normal Saline) 10 ml IVF PRN PRN PRN Reason: Saline Flush Last Admin: 02/07/18 11:59 Dose: 10 ml Tramadol HCl (Ultram) 50 mg PO Q4H PRN PRN Reason: Moderate Pain (4-6) Last Admin: 02/07/18 01:15 Dose: 50 mg
--- NOTE | 2018-02-07 13:47 | CON ---
DATE OF CONSULTATION: 02/07/2018 REASON FOR CONSULTATION: Shortness of breath and previous history of congestive heart failure. PRIMARY PROJECT ENGINEERING DIRECTOR: None. HISTORY OF PRESENT ILLNESS: Ms. Branham is an 82-year-old woman with a past history of COPD and has be en followed by Dr. Mathew Moralez, who recently presented with shortness of breath. She denies any previo us history of cardiomyopathy, although she has had an echo performed in 2016, showed an EF of 25%-30% . I have discussed the case with Dr. Mathew Moralez. He states she was told on multiple occasions in the past that her symptoms are likely related to congestive heart failure. She denies swelling, PND, or orthopnea. She quit all tobacco products 15-20 years ago. PAST MEDICAL HISTORY: COPD, chronic kidney disease, hypertension, aortic aneurysm repair by Dr. Conrado Don, calculated LVEF 25%-30%. Recent renal stent, hiatal hernia repair. ALLERGIES: IODINE and SHELLFISH. SOCIAL HISTORY: She quit all tobacco products 15-20 years ago. HOME MEDICATIONS: Include albuterol, Lasix, Symbicort, ProAir, Benadryl, DuoNeb. REVIEW OF SYSTEMS: A 10-point review of systems reviewed and as above, otherwise negative. PHYSICAL EXAMINATION: VITAL SIGNS: Blood pressure 120/53, pulse 87, temperature 98.4. GENERAL: She does appear almost her stated age. NEUROLOGIC: The patient is alert and oriented times 3 with no focal neurologic deficits. HEENT: Sclerae without icterus. Mouth has moist mucous membranes with normal pallor. NECK: No JVD. Carotid upstroke brisk. No bruits bilaterally. LUNGS: Wheezing and rhonchi noted bilaterally. BACK: No scoliosis or kyphosis. CARDIAC: Regular rate and rhythm with normal S1 and S2. No S3 or S4 noted. No significant rubs, mu rmurs, thrills, or gallops noted throughout the precordium. PMI is not displaced. There is no radha ternal heave. ABDOMEN: Soft, nontender, nondistended. No peritoneal signs present. No hepatosplenomegaly. No ab normal striae. EXTREMITIES: 2+ femoral and 2+ dorsalis pedis pulses. No cyanosis, clubbing, or edema. SKIN: No gross abnormalities. PERTINENT LABORATORY DATA: Potassium 6.1 with creatinine of 1.63. BNP of 1579 with a troponin less than 0.01, hemoglobin 12.4. IMPRESSION: 1. Shortness of breath. 2. Chronic obstructive pulmonary disease. 3. Cardiomyopathy of unknown etiology. RECOMMENDATIONS: It appears Ms. Branham has not had a recent cardiac workup, although she states she w as seen at [facility] [place] 6 months ago. She thinks she saw a buffet server and thinks she had an ech o and was told everything looked normal. Family appeared surprised when I did state that she had a h istory of cardiomyopathy. From a CV standpoint, we would recommend repeating her echo. Beta nitish therapy is contraindicated due to wheezing and asthma. PILAR inhibitor therapy is also contraindicated due to chronic kidney dis ease. May consider Imdur and hydralazine. Continue with nebulizer treatments per Dr. Mathew Moralez. On ce her LVEF was reassessed, we will then decide on proceeding with a noninvasive stress study versus angiography, although with angio, she is at increased risk of contrast nephropathy. I did discuss the case with Dr. Mathew Moralez. Ms. Branham would like to go home today. I did state that it is important to proceed with a cardiac workup.
[2018-02-07] MEDS ORDERED: cefTRIAXone\\ROCEPHIN 1 GM in Sodium Chloride 0.9% 100 ML IVPB SCH (14:00)
[2018-02-07 15:31] LABS: Anion Gap 17 mmol/L (10-20); BUN (Urea Nitrogen) 35 mg/dL (9.8-20.1); Calc. Creatinine Clearance 24 mL/min (70-130); Calcium 8.9 mg/dL (7.8-10.44); Carbon Dioxide 27 mmol/L (23-31); Chloride 97 mmol/L (98-107); Estimated GFR-MDRD 24; Glucose 137 mg/dL (83-110); Potassium 4.5 mmol/L (3.5-5.1); Sodium 136 mmol/L (136-145)
[2018-02-07 16:22] VITALS: BP 143/64; TEMP 98.6
[2018-02-07] MEDS ORDERED: Calcium Carbonate + Vit D 1 TAB PO SCH (17:00)
--- NOTE | 2018-02-07 19:09 | DIS ---
DATE OF DISCHARGE: 02/07/2018 Please note that patient signed against medical advice. ALLERGIES: Patient is allergic to IODINE, SHELLFISH and SULFA. BRIEF HOSPITAL COURSE: The patient is an 82-year-old female with COPD, chronic respiratory failure, on home oxygen, history of chronic systolic heart failure and chronic kidney disease stage 3, presented to the hospital with worsening shortness of breath. Please refer to the history and physical dated 02/06/2018 for further details. The patient was admitted to the hospital with a diagnosis of acute on chronic hypoxic respiratory failure. Her workup was consistent with COPD exacerbation as well as congestive heart failure exacerbation. She was started on antibiotics, steroids with diuretics with good response. The patient was seen by Cardiology and Pulmonology. Cardiology recommended further testing for CHF; however, the patient declined and signed against medical advice. Patient's potassium on admission was 4.9. The next day, her potassium was 5.8. Repeat potassium was 6.1. She received Kayexalate with lactulose, insulin, dextrose, nebulizer treatment and nebulizer treatment and bicarbonate. Her potassium improved to 4.5. The patient was also seen by Nephrology, Dr. Crisostomo. Per Dr. Crisostomo, the patient's hyperkalemia is probably secondary to hemolysis. Repeat labs after 2 days is recommended. Primary care physician is advised to follow. FINAL DIAGNOSES: 1. Acute on chronic hypoxic respiratory failure. 2. Chronic obstructive pulmonary disease exacerbation. 3. Acute on chronic systolic heart failure exacerbation. 4. Hyperkalemia, probably due to hemolysis. 5. Chronic kidney disease stage 3. 6. Hypertension. FOLLOWUP: Follow up with Dr. Noni Alston in 1 week. Risks not limited to life-threatening complications including was explained to the patient. The patient understands the risk and signed against medical advice. MTDD
[2018-02-07] MEDS ORDERED: Doxycycline 100 MG CAP PO SCH (21:00)
--- NOTE | 2018-02-07 21:12 | CON ---
DATE OF CONSULTATION: 02/07/2018 NEPHROLOGY CONSULT NOTE CONSULTING PHYSICIAN: Dwayne Mosqueda M.D. REASON FOR CONSULTATION: Hyperkalemia. REASON FOR ADMISSION: Shortness of breath. HISTORY OF PRESENT ILLNESS: An 82-year-old female with a history of COPD, CKD, hypertension who came to the hospital with shortness of breath, being treated for COPD potassium of 6.1. Nephrology is consulted. The patient denies any food intake or any diet with high potassium. She is not on an y potassium supplements. She is actually on Lasix. No fever or chills. No nausea, vomiting, diarrh ea, no chest pain, palpitation. PAST MEDICAL HISTORY: Positive for COPD, hypertension, CKD, coronary artery disease, and AAA. PAST SURGICAL HISTORY: Multiple renal stones, aortic aneurysm, thrombectomy and hiatal hernia repair . HOME MEDICATIONS: Include albuterol, furosemide, vitamin D3, Symbicort, ProAir, Benadryl, DuoNeb, __ ___. ALLERGIES: IODINE and SULFA. SOCIAL HISTORY: Former smoker. No alcohol or illegal drug abuse. FAMILY HISTORY: No history of kidney disease. REVIEW OF SYSTEMS: The following complete review of systems was negative, unless otherwise mentioned in the HPI or below: Constitutional: Weight loss or gain, ability to conduct usual activities. Sk in: Rash, itching. Eyes: Double vision, pain. ENT/Mouth: Nose bleeding, neck stiffness, pain, te nderness. Cardiovascular: Palpitations, dyspnea on exertion, orthopnea. Respiratory: Shortness of breath, wheezing, cough, hemoptysis, fever or night sweats. Gastrointestinal: Poor appetite, abdom inal pain, heartburn, nausea, vomiting, constipation, or diarrhea. Genitourinary: Urgency, frequenc y, dysuria, nocturia. Musculoskeletal: Pain, swelling. Neurologic/Psychiatric: Anxiety, depressio n. Allergy/Immunologic: Skin rash, bleeding tendency. PHYSICAL EXAMINATION: GENERAL: This is an elderly female in no apparent distress. VITAL SIGNS: Temperature 97.5, pulse 73, respiratory rate 18, blood pressure 146/66. HEENT: Atraumatic, normocephalic. Oral mucosa is moist. NECK: Supple, no masses. CARDIOVASCULAR: S1, S2 heard. Rate and rhythm regular. RESPIRATORY: Clear. MUSCULOSKELETAL: No tenderness. No edema. SKIN: No rash. NEUROLOGIC: Alert, awake. PSYCHIATRIC: Mood and affect. LABORATORY: Hemoglobin is 12.4, potassium 6.1, BUN 30, creatinine is 1.6. Her baseline creatinine i s around 1.6 and 1.9. ASSESSMENT AND PLAN: 1. Hyperkalemia, severe. No indication for dialysis. Okay with medical management for now. Monito r potassium closely. Limit potassium in the diet. 2. Chronic kidney disease stage 3. 3. Elevated BNP. 4. History of chronic obstructive pulmonary disease. 5. Cardiorenal syndrome. 6. Leukocytosis, better. 7. Hypertension, stable. 8. Edema, on Lasix. 9. Continue Lasix and medical management. Okay with Kayexalate and dextrose with insulin for now an d monitor potassium closely. We will follow. The patient counseled to limit potassium in the diet. Thank you for the consult.
--- NOTE | 2018-02-07 21:13 | CON ---
DATE OF CONSULTATION: 02/07/2018 HISTORY OF PRESENT ILLNESS: Charo Branham is an 82-year-old female, who is well known to me. She is i n the office regularly, who presented with shortness of breath. She said she did not feel right and difficulty breathing. Her sats by EMS was 90% when they arrived and in the ER, apparently sats were 85 on 3 liters with the pulse of 99, blood pressure 130/80, respiration rate 30. She denies any chest pain, chills or sweats. A VQ scan was done, which is low probability pulmonary emboli. Chest x-ray showed bibasilar scarring. She received neb treatments and Solu-Medrol. She has been complaining of lower extremity swelling. 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 She recently underwent extensive workup by Urology. She now has a right-sided percutaneous drainage of her right kidney. PAST MEDICAL HISTORY: Renal failure, COPD, breast cancer, CHF. PAST SURGICAL HISTORY: Included renal stent, lumpectomy, aortic aneurysm surgery, previous thrombect marlys, obstructive uropathy, hiatal hernia surgery. ALLERGIES: IODINE, SHELLFISH, SULFA. MEDICATIONS: From home includes DuoNeb, Symbicort, ProAir, Lasix 40. REVIEW OF SYSTEMS: Otherwise, 10-point negative. PHYSICAL EXAMINATION: GENERAL: She appears to be in no acute distress. VITAL SIGNS: Sats are 97 on 4 liters, temperature 97, pulse 36, blood pressure is 130/80. CHEST: Decreased breath sounds with bilateral crackles. CARDIAC: Normal S1, S2, no gallops. ABDOMEN: Soft. EXTREMITIES: Trace edema. LABORATORY DATA: On admission, the pO2 is 87, pCO2 of 44, pH 7.38, on a BiPAP. Creatinine 1.6. Bic arb is 30. White count is 6000. IMPRESSION: Acute and chronic respiratory failure, most of it appears to be CHF due to chronic obstr uctive pulmonary disease exacerbation, former smoker, abnormal x-ray. PLAN: I agree with steroids, Dulera and neb treatments, cardiac care. We will follow. Consultation note of 70 minutes, 50% in direct patient care.
[2018-02-08] MEDS ORDERED: Furosemide 40 MG TAB PO SCH (09:00)
== END 2018-02-07 17:09 | disposition left against medical advice (07) | DRG 291 ==
LOC: ERS 14:55 → 2NO 20:15
PROVIDERS: ADMIT Internal Medicine; ATTEND Internal Medicine
DX: I13.0 Hypertensive heart and chronic kidney disease with heart failure and stage 1 through stage 4 chronic kidney disease, or unspecified chronic kidney disease (principal); J96.21 Acute and chronic respiratory failure with hypoxia; I50.23 Acute on chronic systolic (congestive) heart failure; J44.1 Chronic obstructive pulmonary disease with (acute) exacerbation; N39.0 Urinary tract infection, site not specified; I42.9 Cardiomyopathy, unspecified; N18.3 Chronic kidney disease, stage 3 (moderate); Z99.81 Dependence on supplemental oxygen; E87.5 Hyperkalemia; Z87.891 Personal history of nicotine dependence; I25.10 Atherosclerotic heart disease of native coronary artery without angina pectoris; R31.9 Hematuria, unspecified; B96.20 Unspecified Escherichia coli [E. coli] as the cause of diseases classified elsewhere
CPT/HCPCS: 36415; 71045; 78582; 80048; 80053; 81003; 81015; 82550; 82553; 82805; 83605; 83880; 84484; 85025; 85379; 87040; 87077; 87086; 87149; 87186; 93005; 93306; 94640; 94660; 94664; 94760; 96365; 96375; A4216; A9540; A9558; G8978-GP-CI; G8979-GP-CI; G8980-GP-CI; J1815; J1940; J1956; J2405; J2543; J2920; J7611; J7620

== ENCOUNTER 2018-03-25 14:37 | Emergency (ER) | payer MEDICARE, OTHER ==
[2018-03-25] MEDS ORDERED: diphenhydrAMINE 50 MG/ML VIAL ONE (15:55)
[2018-03-25] MEDS ORDERED: Famotidine/PF 20 mg/2ml Vial ONE (15:55)
[2018-03-25] MEDS ORDERED: methylPREDNISolone Sod Succ/PF 125 MG/2 ML VIAL ONE (15:55)
[2018-03-25] MEDS ORDERED: cefOXitin Sodium 1 GM in Sodium Chloride 0.9% 100 ML IVPB ONE (16:00)
--- NOTE | 2018-03-26 14:04 | SPC ---
RIGHT NEPHROSTOMY TUBE REPLACEMENT AND NEPHROSTOGRAM: 03/25/18 HISTORY: Nonfunctioning right nephrostomy tube. TECHNIQUE: The procedure including the risks and complications were explained to the patient and informed consen t was obtained. Patient was placed on the angiography table in the prone position. The patient was ad ministered Solu-Medrol and Benadryl in the Emergency Department due to contrast allergy. The patient was also administered 1 gram of Cefoxitin intravenously prior to the procedure. The right nephrostomy tube and surrounding area were meticulously prepped and draped in the usual tahir rile fashion. Skin and subcutaneous tissues were infiltrated with buffered 1% lidocaine for local ane sthesia. Nephrostogram was performed and the catheter was cut and then exchanged over a 0.035 inch Be Panravenen guide wire for a 12 Micronesian nephrostomy tube. The nephrostomy tube is coiled within the renal pe lvis. Guide wire and stiffener cannula were removed. Contrast injection confirms placement within the collecting system with the distal portion in the renal pelvis. Catheter was sutured in place utilizing 2-0 Ethilon suture material and placed to gravity drainage. D ry sterile dressing was placed. The patient tolerated the procedure well without immediate complication. FINDINGS: Technically successful right percutaneous nephrostomy tube replacement. The catheter was upsized from a 10 Micronesian nephrostomy tube to a 12 Micronesian nephrostomy tube. Contrast confirms placement in the col lecting system and there is free flow of urine postprocedure. FLUOROSCOPY: Total fluoroscopy time is 0.5 minutes with total dose of 1830 mGy*cm2. IMPRESSION: Technically successful right nephrostomy tube replacement. 12 Micronesian nephrostomy tube was placed.
== END 2018-03-25 17:40 | disposition home or self-care (01) ==
LOC: ERS 14:37
DX: N99.528 Other complication of incontinent external stoma of urinary tract (principal); J44.9 Chronic obstructive pulmonary disease, unspecified; Z87.891 Personal history of nicotine dependence
CPT/HCPCS: 50431; 50434; 96365; 96375; 99283; C1729; J0694; J1200; J2930; J7050; S0028

== ENCOUNTER → 2018-05-24 | Day surgery (SDC) | payer MEDICARE, OTHER ==
[~2018-05-24] MED LIST changes: +Fentanyl 100 MCG/2 ML VIAL ONE; +Iothalamate Meglumine 60% 50 ML VIAL FS ONE; -Lidocaine 1% PF 5 ML VIAL ONE; -Sodium Bicarbonate 2.5 MEQ/5 ML VIAL ONE; +Sodium Chloride 0.9% 100 ML ONE; +cefTRIAXone\\ROCEPHIN 1 GM VIAL ONE
[2018-05-24 07:38] VITALS: BP 133/64; TEMP 98.1; BMI 23.1
[2018-05-24 09:42] LABS: #Eosinphils 0.1 thou/uL (0.0-0.7); #Lymphocytes 0.7 thou/uL (1.20-3.40); #Monocytes 0.1 thou/uL (0.11-0.59); #Neutrophils 10.3 thou/uL (1.40-6.50); %Basophils 0.1 % (0.0-1.0); %Eosinophils 0.6 % (0.0-10.0); %Lymphocytes 6.3 % (21.0-51.0); %Monocytes 0.6 % (0.0-10.0); %Neutrophils 92.4 % (42.0-75.0); Hemoglobin 10.9 g/dL (12.0-16.0); Mean Corpuscular HGB CONC 30.1 g/dL (32.0-36.0); Mean Corpuscular Hemoglobin 26.7 pg (27.0-31.0); Mean Corpuscular Volume 88.7 fL (78.0-98.0); Mean Platelet Volume 7.1 fL (7.4-10.4); Platelet Count 314 thou/uL (130-400); RBC Distribution Width 13.7 % (11.5-14.5); Red Blood Cell (RBC) Count 4.07 mill/uL (4.20-5.40); White Blood Cell (WBC) Count 11.1 thou/uL (4.8-10.8)
[2018-05-24 10:00] LABS: Anion Gap 17 mmol/L (10-20); BUN (Urea Nitrogen) 40 mg/dL (9.8-20.1); Calc. Creatinine Clearance 22 mL/min (70-130); Calcium 9.2 mg/dL (7.8-10.44); Carbon Dioxide 30 mmol/L (23-31); Chloride 98 mmol/L (98-107); Estimated GFR-MDRD 22; Glucose 131 mg/dL (83-110); Potassium 4.9 mmol/L (3.5-5.1); Sodium 140 mmol/L (136-145)
--- NOTE | 2018-05-24 11:29 | OP ---
DATE OF PROCEDURE: 05/24/2018 PREOPERATIVE DIAGNOSIS: Left ureteral obstruction, left ureteral stent. POSTOPERATIVE DIAGNOSIS: Left ureteral obstruction, left ureteral stent. PROCEDURE PERFORMED: Cystoscopy with removal and replacement of left ureteral stent. SURGEON: Dr. Leo Warren. ANESTHETIC: Sedation. ESTIMATED BLOOD LOSS: Minimal. FINDINGS: There is an old stent that is still patent. We replaced it with a 4.8 x 24 cm double-J st ent without a string attached. OPERATIVE TECHNIQUE: After obtaining written and verbal consent from the patient, she was taken to [facility] operating suite. She had received 1 gram of Rocephin. She was given some sedation, placed in the dorsal lithotomy position, sterilely prepped and draped. Cystoscopy was performed with a 22-Lithuanian sheath. This was well lubricated and passed under direct vision through the female urethra into the urinary bladder with the aid of a 30-degree lens and video camera and monitor. The bladder was fille d and emptied a number of times and then the distal end of the double-J stent was grasped and brought out through the urethral meatus. A guidewire was fed up through this up in the area of the renal pe lvis and the stent was removed over the guidewire and discarded. A 5-Lithuanian Pollack catheter advance d over the guidewire and placed about two-thirds of the way up to the expected distance of the ureter and the wire was removed. Contrast was injected in a retrograde manner, about 5 mL, just to fill ou t the proximal collecting system. The guidewire was replaced, the open-ended catheter was removed, a nd the stent was brought in and placed over the guidewire and pushed up into place with aid of a push er so its proximal end coiled in the renal pelvis and the distal end coiled in the bladder when the w brit was removed. The patient's bladder was emptied. The instruments were removed. She was taken ou t of the dorsal lithotomy position, awakened, extubated, and taken by stretcher to the recovery room.
--- NOTE | 2018-05-24 12:03 | SPC ---
NEPHROSTOMY TUBE EXCHANGE RIGHT NEPHROSTOGRAM THROUGH EXISTING CATHETER RIGHT: DATE: 05/24/2018. HISTORY: An 83-year-old female for routine maintenance exchange of existing right percutaneous nephrostomy tub e. Chronic right obstructive uropathy. TECHNIQUE: Signed informed consent obtained. The patient was placed prone on special procedures table. The exi sting right percutaneous 12 Kittitian nephrostomy catheter and the surrounding skin were prepared and dr aped in the usual sterile fashion. A 25-gauge needle was used to apply buffered Lidocaine at the nep hrostomy tube entry site. The existing 12 Kittitian nephrostomy catheter was cut with sterile scissors. A 0.18 inch stiff angled glidewire was advanced under brief, intermittent fluoroscopy, through the nephrostomy tube, looped in the right renal collecting system, and then advanced down the right urete r. The existing nephrostomy catheter was removed over the guidewire. A new 12 Kittitian percutaneous n ephrostomy catheter was advanced over the guidewire. Guidewire was removed. Contrast was injected i nto the catheter demonstrating that the new catheter was in the renal pelvis. The contrast material was aspirated. The pigtail loop was locked into place. The nephrostomy catheter was sutured in plac e at the skin. The patient tolerated the procedure well. No complications. IMPRESSION: Technically successful exchange of 12 Kittitian right percutaneous nephrostomy tube. POS: [facility]
--- NOTE | 2018-05-24 12:27 | RAD ---
RETROGRADE IVP: Comparison: 02-01-18 History: Renal stones and nephrostomy tube. FINDINGS/IMPRESSION: Multiple limited intraoperative fluoroscopic views of a retrograde IVP were submitted for interpretat ion. There is a pigtail catheter projecting over the right kidney which likely represents a right per cutaneous nephrostomy tube. There are three calcifications near the nephrostomy tube which could repr esent right renal calcifications. There is a left double J ureteral stent. Contrast is instilled in t he left renal collecting system and there appears to be moderate hydronephrosis. Surgical clips are s een in the abdomen and gallbladder region. Inferior vena cava filter is seen. POS: [facility]
== END ==
LOC: SDC 06:45
PROVIDERS: ATTEND Urology
PROC: 0T778DZ Dilation of Left Ureter with Intraluminal Device, Via Natural or Artificial Opening Endoscopic (ICD-10-PCS; principal; 2018-05-24)
PROC: 0TP98DZ Removal of Intraluminal Device from Ureter, Via Natural or Artificial Opening Endoscopic (ICD-10-PCS; 2018-05-24)
PROC: 0T25X0Z Change Drainage Device in Kidney, External Approach (ICD-10-PCS; 2018-05-24)
DX: N13.5 Crossing vessel and stricture of ureter without hydronephrosis (principal); I71.4 Abdominal aortic aneurysm, without rupture; I10 Essential (primary) hypertension; Z79.51 Long term (current) use of inhaled steroids; Z79.52 Long term (current) use of systemic steroids; Z79.899 Other long term (current) drug therapy; Z88.2 Allergy status to sulfonamides; Z91.013 Allergy to seafood; Z91.040 Latex allergy status; Z95.828 Presence of other vascular implants and grafts
CPT/HCPCS: 50431; 50435; 52332; 74420; 80048; 85025; C1729; C1769; 36415; C1758; J0696; J3010; J7050; Q9961

== ENCOUNTER 2018-08-15 18:48 | Inpatient (IN) | payer MEDICARE, OTHER ==
[2018-08-15 19:39] LABS: #Eosinphils 0.1 thou/uL (0.0-0.7); #Lymphocytes 2.5 thou/uL (1.20-3.40); #Monocytes 0.5 thou/uL (0.11-0.59); #Neutrophils 10.3 thou/uL (1.40-6.50); %Basophils 0.3 % (0.0-1.0); %Eosinophils 0.9 % (0.0-10.0); %Lymphocytes 18.5 % (21.0-51.0); %Monocytes 3.5 % (0.0-10.0); %Neutrophils 76.7 % (42.0-75.0); Hemoglobin 10.7 g/dL (12.0-16.0); Mean Corpuscular HGB CONC 30.6 g/dL (32.0-36.0); Mean Corpuscular Hemoglobin 26.6 pg (27.0-31.0); Mean Platelet Volume 8.1 fL (7.4-10.4); Platelet Count 309 thou/uL (130-400); RBC Distribution Width 15.3 % (11.5-14.5); Red Blood Cell (RBC) Count 4.03 mill/uL (4.20-5.40); White Blood Cell (WBC) Count 13.4 thou/uL (4.8-10.8)
[2018-08-15] MEDS ORDERED: Piperacillin/Tazobactam 4.5 GM VIAL ONE (19:52)
[2018-08-15 19:56] LABS: ALT (SGPT) 10 U/L (8-55); AST (SGOT) 13 U/L (5-34); Albumin 3.4 g/dL (3.4-4.8); Alkaline Phosphatase 78 U/L (40-150); Anion Gap 16 mmol/L (10-20); BUN (Urea Nitrogen) 51 mg/dL (9.8-20.1); Bilirubin, Total 0.4 mg/dL (0.2-1.2); Calc. Creatinine Clearance 0 mL/min (70-130); Calcium 8.4 mg/dL (7.8-10.44); Carbon Dioxide 22 mmol/L (23-31); Chloride 100 mmol/L (98-107); Estimated GFR-MDRD 14; Glucose 96 mg/dL (83-110); Potassium 4.6 mmol/L (3.5-5.1); Protein, Total 6.4 g/dL (6.0-8.3); Sodium 133 mmol/L (136-145)
--- NOTE | 2018-08-15 20:04 | RAD ---
CHEST ONE VIEW: HISTORY: Pneumonia. Desaturating O2. History of COPD. FINDINGS: There are increased linear and interstitial parenchymal changes noted bilaterally, evidence for chron ic lung change. There appears to be slightly more increased density in the infrahilar regions bilate rally, raising concern for either progressive chronic interstitial disease or possibly some developin g pneumonia or pneumonitis. There is evidence for a hiatal hernia. There is a somewhat nodular dens ity overlying the left hilum, which appears more prominent than on the prior study. I cannot exclude the possibility of a developing mass or adenopathy or even that of an aortic aneurysm, from this sin gle AP study. IMPRESSION: 1. Bilateral chronic lung changes. 2. Minimal increased linear and interstitial markings in the lung bases, more prominent than on the prior study, possibly mild pneumonia or pneumonitis. 3. Nodular density overlying the left hilar and infrahilar region, more prominent than on prior stud ies. The possibilities include that of a mass, adenopathy, or possibly even an aortic aneurysm. Consider follow-up chest CT scan with IV contrast for further assessment. Findings discussed with Dr. Lobato in the emergency room at 7:40 p.m. CODE CR POS: [facility]
[2018-08-15 20:16] LABS: CKMB 2.1 ng/mL (0-6.6)
[2018-08-15] MEDS ORDERED: Aspirin Chewable 81 MG TAB ONE (20:21)
[2018-08-15] MEDS ORDERED: Furosemide 40 MG/4 ML VIAL ONE (20:22)
--- NOTE | 2018-08-15 21:35 | CT ---
CT CHEST WITHOUT IV CONTRAST: HISTORY: The patient has an abnormal density overlying the left infrahilar region on plain film. IV contrast could not be given because of a very low GFR and allergy. TECHNIQUE: Exam of the chest was done without IV contrast. 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 There is cardiomegaly. There are some generalized atherosclerotic ectatic changes of the aorta th roughout. There are extensive bilateral hyperinflation changes and chronic lung changes bilaterally, having the appearance of nonspecific chronic interstitial lung disease. There certainly could be so me acute interstitial component, in addition to this extensive underlying chronic change. There is a moderate sized hiatal hernia. No mediastinal mass or adenopathy. Multiple cholelithiasis without e vidence for acute cholecystitis. Small kidneys bilaterally with mild dilatation of the left upper re nal collecting system, incompletely seen. This appearance of the kidneys does not appear significant ly changed from a 2017 study. IMPRESSION: 1. 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 2. Extensive bilateral chronic lung disease, probably chronic interstitial lung disease, with some a ssociated pleural thickening and hyperinflation, without a significant confluent process. Certainly some degree of acute interstitial pneumonitis, in addition to the chronic change, is a possibility. 3. Stable multiple gallstones and kidneys bilaterally. 4. Moderate sized hiatal hernia. 5. Cardiomegaly. Findings discussed with Dr. Lobato at 9:20 p.m. CODE CR POS: [facility]
[2018-08-15] MEDS ORDERED: Ondansetron PF 4 MG/2 ML Vial IVP PRN (22:00)
[2018-08-15] MEDS ORDERED: Ondansetron ODT 4 MG TAB PO PRN (22:00)
[2018-08-15] MEDS ORDERED: Acetaminophen 325 MG TAB PO PRN (22:00)
[2018-08-15 23:55] VITALS: BMI 24.0
[2018-08-16] MEDS ORDERED: methylPREDNISolone Sod Succ 40 MG VIAL IVP SCH (04:00)
[2018-08-16] MEDS ORDERED: Piperacillin/Tazobactam 3.375 GM in Sodium Chloride 0.9% 100 ML IVPB SCH (04:00)
[2018-08-16] MEDS: methylPREDNISolone Sod Succ 40 MG VIAL IVP SCH ×4 (06:05→17:49)
[2018-08-16 06:21] LABS: #Lymphocytes 0.6 thou/uL (1.20-3.40); %Eosinophils 0.2 % (0.0-10.0); %Lymphocytes 4.9 % (21.0-51.0); %Monocytes 0.1 % (0.0-10.0); %Neutrophils 94.8 % (42.0-75.0); Hemoglobin 11.1 g/dL (12.0-16.0); Mean Corpuscular HGB CONC 31.2 g/dL (32.0-36.0); Mean Corpuscular Hemoglobin 27.6 pg (27.0-31.0); Mean Corpuscular Volume 88.4 fL (78.0-98.0); Mean Platelet Volume 8.1 fL (7.4-10.4); Platelet Count 291 thou/uL (130-400); RBC Distribution Width 15.5 % (11.5-14.5); Red Blood Cell (RBC) Count 4.02 mill/uL (4.20-5.40); White Blood Cell (WBC) Count 11.6 thou/uL (4.8-10.8)
--- NOTE | 2018-08-16 06:30 | HP ---
PRIMARY CARE PHYSICIAN: Dr. Noni Alston. CODE STATUS: Full code. TIME OF EVALUATION: 08:50 p.m. CHIEF COMPLAINT: Shortness of breath and drop in saturation. HISTORY OF PRESENT ILLNESS: This is an 83-year-old female patient. The patient is a [facility] resident, has been receiving rehab since she had a fracture of her left elbow on . The patient also has a history of renal failure, breast cancer, treated with radiation and surgery, COPD. In the hospital, she was having shortness of breath that was gradually getting worse, starting seriously , as per report from the [facility], the patient's saturation was in the 80s. The patient has had limited episode of pneumonia in the past few months as per her daughter. At this time, there were no clear symptoms. Previously, no alleviating factors of the symptoms. A CAT scan was done. There were only chronic changes in the lung. There were no typical accelerations. The patient also has a history of atrial fibrillation and acute hypoxic respiratory failure. Symptoms were severe , constant. REVIEW OF SYSTEMS: CONSTITUTIONAL: No fever, chills, or generalized weakness. RESPIRATORY: The patient had increased respiratory effort, shortness of breath. CARDIOVASCULAR: No chest pain or palpitation. GASTROINTESTINAL: No nausea, vomiting, diarrhea, or abdominal pain. 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 GENITOURINARY: No burning on urination. EXTREMITIES: No leg swelling. All other systems were reviewed and negative except for the findings mentioned above. PAST MEDICAL HISTORY: Positive as mentioned in the HPI. SURGICAL HISTORY: The patient has lobectomy, aortic aneurysmal repair, renal stents, hernia repair. PSYCH HISTORY: No suicidal ideation. No history of homicidal ideation. No FAMILY HISTORY: Reviewed and non contributory to current presentation. previous psych history. SOCIAL HISTORY: The patient lives at home with family, was living in a [facility] for [facility] due to fracture of the left elbow on . Quit smoking less than 10 years ago. No drug use. ALLERGIES: IODINE AND SHELLFISH CONTAINING PRODUCTS, SULFA. REPORTED MEDICATIONS: 1. Ranexa. 2. Lasix. 3. Neurontin. PHYSICAL EXAMINATION: VITAL SIGNS: Blood pressure 115/54 with heart rate 88, respiratory rate was 16. Pain 0/10, oxygen saturation 97% on O2 via mask. On nasal canula, the saturation remains at 90. GENERAL APPEARANCE: The patient is alert, oriented, in mild distress due to shortness of breath. HEENT: Eyes, normal conjunctivae. Moist oral mucosa. Anicteric. No JVD. RESPIRATORY: Bilateral air entry. No rales. No wheezes. Symmetric expansion. CARDIOVASCULAR: Normal rate, regular rhythm. No murmurs, no gallops. No edema. ABDOMEN: Soft, normal bowel sounds. MUSCULOSKELETAL: Baseline range of motion and strength. No tenderness. SKIN: Warm, intact. No pallor. No rash. No redness. Peripheral pulses are present. Capillary refill seems to be intact. NEURO: No evidence of any new focal weakness. Baseline speech. Cranial nerves seems to be intact. PSYCH: The patient is in good mood. No anxiety. Optimal judgment. IMAGING: EKG was reviewed. The patient has a normal sinus rhythm at the rate of 81, CA 158, QRS 128, QT corrected rate of 136, left ventricular hypertrophy with QRS widening and repolarization abnormalities. Chest CT was reviewed. 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 Extensive bilateral chronic lung disease, probably chronic interstitial lung disease with some associated pleural thickening and hyperexpansion without significant cardiopulmonary process. Certainly some degree of acute interstitial pneumonitis in addition to the chronic changes, it was really stable. Multiple gallstones in the kidney bilaterally. Moderate-sized hiatal hernia, cardiomegaly. Chest x-ray was reviewed. The patient had bilateral chronic lung changes, minimal increase in linear interstitial markings of the lung bases, more prominent in one prior study, possibly mild pneumonia or pneumonitis. Nodular density overlying the left hilar irregular region, more prominent in the prior study. The possibility is increased hilar adenopathy versus leaking aortic aneurysm. Consider followup chest CT scan without contrast for further assessment. LABORATORY DATA: Labs were reviewed. The patient has white count 13.4, hemoglobin 10.7, MCV 87, platelet count 309. Chemistry; sodium 133, potassium 4.6, chloride 100, carbon dioxide 22, anion gap 16, BUN 51, creatinine 3.07, previous creatinine was 2.3, GFR was 14, glucose 96, lactic acid 0.9, calcium 9.4, total bilirubin 0.4, AST 13, ALT 10, alkaline phosphatase 78. Troponin initially was 0.048; the second one 0.044; the third one 0.027. Beta-natriuretic peptide 2959. Serum total protein 6.4, albumin 3.4, globulin 3.0, albumin to globulin ratio is 1.1. ASSESSMENT AND PLAN: The patient will be placed in the hospital with following medical problems: 1. Possible chronic obstructive pulmonary disease exacerbation. CAT scan did not show any block up pneumonia. The patient has been hypoxic. We will treat with nebs, steroids and antibiotics, we will continue to monitor closely and adjust treatment depending on the patient's clinical course. We will also give oxygen support. 2. [id number] myocardial infarction, type 2. The patient has troponin 0.048 and 0.044. This has corrected, is likely secondary to hypoxia. We will treat underlying condition. 3. Acute on chronic kidney failure. The patient has an increase in creatinine of more than 0.3 from previous examination. We will continue to monitor kidney function. If not improved, might need Nephro to assist us with outpatient. 4. Hyponatremia. Sodium 133. This is minimal, not very significant. We will monitor, and treat accordingly. 5. Leukocytosis with WBC 13.4. This is mild, unclear etiology, could be secondary to acute bronchitis causing COPD exacerbation. Treatment as above. 6. Deep venous thrombosis prophylaxis. 7. Risk assessment. The patient is high risk due to acute hypoxemic respiratory failure. Job ID: [id number] [facility]
[2018-08-16 06:38] LABS: Anion Gap 19 mmol/L (10-20); BUN (Urea Nitrogen) 50 mg/dL (9.8-20.1); Calc. Creatinine Clearance 16 mL/min (70-130); Calcium 8.3 mg/dL (7.8-10.44); Carbon Dioxide 21 mmol/L (23-31); Chloride 103 mmol/L (98-107); Estimated GFR-MDRD 14; Glucose 113 mg/dL (83-110); Potassium 4.5 mmol/L (3.5-5.1); Sodium 138 mmol/L (136-145)
[2018-08-16] MEDS ORDERED: methylPREDNISolone Sod Succ/PF 125 MG/2 ML VIAL IVP SCH (09:00)
[2018-08-16] MEDS ORDERED: Furosemide 40 MG TAB PO SCH (09:00)
[2018-08-16] MEDS ORDERED: Enoxaparin Sodium 30 MG/0.3 ML SYRINGE SC SCH (09:00)
--- NOTE | 2018-08-16 09:25 | PDOC.PN ---
- Subjective Encounter Start Date: 08/16/18 Encounter Start Time: 11:50 Subjective: Patient with some discomfort from left arm fracture, was supposed to -: have ortho f/u today for repeat x-ray. SOB a bit better she thinks. - Objective Resuscitation Status - Order Detail: 08/15/18 22:00 Resuscitation Status Routine Resuscitation Status: FULL: Full Resuscitation MAR Reviewed: Yes Vital Signs & Weight: Vital Signs (12 hours) Temp Pulse Resp BP Pulse Ox 08/16/18 08:29 98.2 F 85 20 128/60 96 08/16/18 07:56 90 L 08/16/18 07:53 91 20 90 L 08/16/18 04:09 99.4 F 83 21 H 122/60 97 08/16/18 02:33 100 08/16/18 02:30 83 18 100 08/15/18 23:55 98.0 F 76 20 111/56 L 96 08/15/18 23:35 98.0 F 76 20 111/56 L 96 Weight Weight 162 lb 12.8 oz I&O: 08/15/18 08/16/18 08/17/18 06:59 06:59 06:59 Output Total 1150 Balance -1150 Result Diagrams: 08/16/18 05:41 08/16/18 05:41 Phys Exam - Physical Examination Constitutional: NAD HEENT: moist MMs Respiratory: no rales, wheezing present Cardiovascular: RRR Gastrointestinal: soft, positive bowel sounds Musculoskeletal: no edema left shoulder in immobilizer Neurological: non-focal Psychiatric: normal affect, A&O x 3 Dx/Plan (1) Acute and chronic respiratory failure with hypoxia Code(s): J96.21 - ACUTE AND CHRONIC RESPIRATORY FAILURE WITH HYPOXIA Status: Acute (2) COPD exacerbation Code(s): J44.1 - CHRONIC OBSTRUCTIVE PULMONARY DISEASE W (ACUTE) EXACERBATION Status: Acute Comment: On Zosyn, steroids, nebs from ER on 08/15/18. No significant pneumonia on CT scan and normal WBC so will switch antibioitics to doxycycline. Dr. Moralez consulted. (3) Acute on chronic systolic (congestive) heart failure Code(s): I50.23 - ACUTE ON CHRONIC SYSTOLIC (CONGESTIVE) HEART FAILURE Status : Acute Comment: EF 40-45% in January 2018, BNP severely elevated but with renal impairment at well (4) Acute renal failure superimposed on stage 3 chronic kidney disease Code(s): N17.9 - ACUTE KIDNEY FAILURE, UNSPECIFIED; N18.3 - CHRONIC KIDNEY DISEASE, STAGE 3 (MODERATE) Status: Acute Comment: Creatinine has climbed from high 1s over last year to 3 now. Uncertain eitiology. With massive increase in BNP and worsening hypoxia considered dose of IV lasix, however on discussion with Dr. Crisostomo he recommended holding off on any diuretics and consult urology for nephrostomy tube replacement. (5) Hypertension Code(s): I10 - ESSENTIAL (PRIMARY) HYPERTENSION Status: Chronic Qualifiers: Hypertension type: essential hypertension Qualified Code(s): I10 - Essential (primary) hypertension Comment: controlled (6) CAD (coronary artery disease) Code(s): I25.10 - ATHSCL HEART DISEASE OF [place] CORONARY ARTERY W/O ANG PCTRS Status: Chronic (7) H/O aortic aneurysm repair Code(s): Z98.890 - OTHER SPECIFIED POSTPROCEDURAL STATES; Z86.79 - PERSONAL HISTORY OF OTHER DISEASES OF THE CIRCULATORY SYSTEM Status: Chronic Comment : Previous aortic aneurysm repair by Dr. Don, 5-6cm lower thoracic aortic aneurysm on non-contrast CT in ER (8) Interstitial fibrosis Code(s): J84.10 - PULMONARY FIBROSIS, UNSPECIFIED Status: Chronic (9) Obstructive uropathy Code(s): N13.9 - OBSTRUCTIVE AND REFLUX UROPATHY, UNSPECIFIED Status: Chronic Comment: Will consult patient's urologist Dr. Warren for nephrostomy tube trade out- he called back and stated that we can just schedule that with IR. Will have nurse call IR to schedule replacement. - Plan cont current plan of care, continue antibiotics, PT/OT, DVT proph w/heparin, DVT proph w/SCDs * . - Discharge Day Encounter end time: 12:00 Pulmonology Consult: Meds - Medications MAR Reviewed: Yes Medications: Current Medications Acetaminophen (Tylenol) 650 mg PO Q4H PRN PRN Reason: Headache/Fever/Mild Pain (1-3) Albuterol/Ipratropium (Duoneb) 3 ml NEB [id number] DONNY Last Admin: 08/16/18 07:53 Dose: 3 ml Enoxaparin Sodium (Lovenox) 30 mg SC 0900 DONNY Furosemide (Lasix) 40 mg PO DAILY DONNY Gabapentin (Neurontin) 300 mg PO TID [facility] Piperacillin Sod/Tazobactam (Sod 3.375 gm/ Sodium Chloride) 100 mls @ 200 mls/ hr IVPB 0400,1000,1600,2200 [facility] Last Admin: 08/16/18 04:38 Dose: 100 mls Methylprednisolone Sodium Succinate (Solu-Medrol) 40 mg IVP Q6HR [facility] Last Admin: 08/16/18 06:05 Dose: 40 mg Metoprolol Succinate (Toprol Xl) 25 mg PO QAM [facility] Ondansetron HCl (Zofran Odt) 4 mg PO Q6H PRN PRN Reason: Nausea/Vomiting Ondansetron HCl (Zofran) 4 mg IVP Q6H PRN PRN Reason: Nausea/Vomiting - Allergies Allergies/Adverse Reactions: Allergies Allergy/AdvReac Type Severity Reaction Status Date / Time iodine Allergy Hives Verified 05/21/18 14:17 shellfish derived Allergy Nausea Verified 05/21/18 14:17 Sulfa (Sulfonamide Allergy Hives Verified 05/21/18 14:17 Antibiotics)
[2018-08-16] MEDS: Gabapentin 300 MG CAP PO SCH ×3 (09:44→21:13)
[2018-08-16] MEDS ORDERED: Furosemide 40 MG/4 ML VIAL SLOW IVP SCH (10:00)
--- NOTE | 2018-08-16 11:18 | CON ---
DATE OF CONSULTATION: HISTORY OF PRESENT ILLNESS: Charo Branham is an 83-year-old female, who is well known to me, multiple admissions in the past. She now comes to the ER with multiple complaints, particularly oxygen level was low. She is apparently in some fci in [place], has been in and out of the hospital at [facility] numerous times with what appears to be a broken left arm. She has some kind of a sling device placed and no surgery was done. Family members tell me that she has been in and out there, several times been there for almost 3 weeks. She is a former smoker. This morning, she says she is feeling better. She has a poor cough, but no fever or chills. No chest pain. She has severe limitation of activity. She can barely walk even 50 feet without getting markedly short of breath. 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 Severe deconditioning, advanced age, former smoker. Renal failure. PAST SURGICAL HISTORY: Including breast biopsy followed by radiation and chemo, lumpectomy, aortic aneurysm repair, multiple renal stents, and hernia operation. MEDICATIONS: From the fci has included: 1. Ranexa 500. 2. Potassium 20. 3. . 4. Nebulizer. 5. Gabapentin 400 three times a day. 6. Lasix 80. 7. Tylenol. ALLERGIES: IODINE, SHELLFISH, AND SULFA. SOCIAL HISTORY: Tobacco as noted. Former smoker. Alcohol, none. REVIEW OF SYSTEMS: Ten-point negative. PHYSICAL EXAMINATION: GENERAL: This morning, she is still complaining of difficulty breathing, but appears to be in no acute distress. VITAL SIGNS: Sats 96% on 4 L, respiratory rate 20, temperature 98, pulse 85, and blood pressure is 120/60. CHEST: Extensive crackles bilaterally. CARDIAC: Normal S1 and S2. No gallops. ABDOMEN: No masses. LABORATORY DATA: Creatinine is 3.0, BUN is 50. BNP is 2959. White count 11,000, hemoglobin and hematocrit of 11 and 35. IMPRESSION: 1. Respiratory failure secondary to congestive heart failure, pulmonary fibrosis, honeycombing seen on CT of the chest. 2. Chronic obstructive pulmonary disease, tobacco abuse, fractured left humerus, renal failure, multiple renal stents, advanced age, and severe deconditioning. PLAN: I agree with present treatment, neb treatments, steroids, and empiric antibiotics. Her long-term prognosis is grave. I would serioulsy consider discussing with her code status, palliative care consult. Consultation note, 70 minutes, 50% direct patient care. Job ID: [id number]
--- NOTE | 2018-08-16 14:19 | CON ---
DATE OF CONSULTATION: 08/16/2018 NEPHROLOGY CONSULT CONSULTING PHYSICIAN: Dr. Garcia. REASON FOR CONSULTATION: Acute kidney injury. REASON FOR ADMISSION: Shortness of breath. HISTORY OF PRESENT ILLNESS: This is an 83-year-old female with history of aortic aneurysm and CKD, breast cancer, who came to the hospital with a shortness of breath, has been evaluated. She was found to have elevated creatinine. Her last creatinine was 2.3 in early part of July, one month back it was 2.35 and was found to be 3.07. She usually runs around 1.6 to 1.9. Nephrology is consulted. The patient has a GFR of 4 and potassium is 4.5. The patient reported that she is at baseline status of her respiratory status. She does take 4 L of oxygen at home. She is on 4 L now. She does have conversational dyspnea. PAST MEDICAL HISTORY: Positive for COPD, breast cancer, CKD, and aortic aneurysm. PAST SURGICAL HISTORY: Hernia repair. HOME MEDICATIONS: 1. Lasix. 2. K-Dur. 3. Megace. 4. DuoNeb. 5. [place]. 6. Gabapentin. 7. Ergocalciferol. ALLERGIES: TO IODINE, SHELLFISH, AND SULFA. FAMILY HISTORY: No history of any kidney disease. SOCIAL HISTORY: The patient used to be a smoker and quit 10 years ago. No alcohol or illicit drug use. REVIEW OF SYSTEMS: CONSTITUTIONAL: Negative for weight loss or gain, ability to conduct usual activities. SKIN: Negative for rash, itching. EYES: Negative for double vision, pain. ENT/MOUTH: Negative for nose bleeding, neck stiffness, pain, tenderness. CARDIOVASCULAR: Negative for palpitations, dyspnea on exertion, orthopnea. RESPIRATORY: Negative for shortness of breath, wheezing, cough, hemoptysis, fever or night sweats. GASTROINTESTINAL: Negative for poor appetite, abdominal pain, heartburn, nausea, vomiting, constipation, or diarrhea. GENITOURINARY: Negative for urgency, frequency, dysuria, nocturia. MUSCULOSKELETAL: Negative for pain, swelling. NEUROLOGIC/PSYCHIATRIC: Negative for anxiety, depression. ALLERGY/IMMUNOLOGIC: Negative for skin rash, bleeding tendency. . PHYSICAL EXAMINATION: GENERAL: This is a thin built female, mild conversational dyspnea. VITAL SIGNS: Temperature 98.2, pulse 85, respiratory rate 20, blood pressure 128/60. HEENT: Atraumatic and normocephalic. NECK: Supple. CARDIOVASCULAR: S1 and S2 heard. RESPIRATORY: Wheezes present. GASTROINTESTINAL: Abdomen is soft. MUSCULOSKELETAL: . DERMATOLOGIC: No skin rash. NEUROLOGIC: Alert and awake. PSYCHIATRIC: Normal mood and affect. LABORATORY DATA: Potassium 4.5, BUN is 50, creatinine is 3.07. ASSESSMENT: 1. Acute kidney injury, rule out obstruction. We would recommend Urology consult. The patient is due for changing a nephrostomy tube. 2. Edema, controlled. 3. Hypertension, stable. 4. Anemia, mild. PLAN: Plan is to check renal ultrasound. Recommend Urology consult and we will follow whole Radha for now. Gentle hydration if tolerated. Job ID: [id number]
--- NOTE | 2018-08-16 14:48 | ULT ---
BILATERAL RENAL ULTRASOUND COMPLETE: Date: 08/16/18 HISTORY: Acute kidney insufficiency. COMPARISON: 02/23/12. FINDINGS: The right kidney is small, measuring 7.7 x 4.8 x 4.0 cm, with thin appearing cortex, without evidence for hydronephrosis. The left kidney is not demonstrated. There is overlying gas. Patient was unable to roll into a decubitus position because of a broken arm. The bladder appears to have some dense lay ering debris in the dependent portion of the bladder. IMPRESSION: Small right kidney with a thin renal cortex without hydronephrosis. Fairly thick area of layering billie ris within the bladder dependent portion. Nonvisualized left kidney. Exam limited as above. POS: [facility]
[2018-08-16] MEDS ORDERED: Heparin 5,000 UNITS/ML VIAL SC SCH (15:00)
[2018-08-16] MEDS: HYDROcodone/Acetaminophen 5/325 mg Tablet PO PRN (17:49)
[2018-08-16] MEDS: Mometasone/Formoterol 120 PUFF INHALER INH SCH (18:33)
[2018-08-16] MEDS: Doxycycline 100 MG CAP PO SCH (21:13)
--- NOTE | 2018-08-17 00:20 | CON ---
DATE OF CONSULTATION: HISTORY: Charo Branham is an 83-year-old white female, who has been evaluated by Dr. March in January 2018. An echo in August 2015 revealed ejection fraction of 25% to 30%. An echo in January 2018 revealed an ejection fraction of 40% to 45%. She currently resides in a [facility] in [place] after falling and fracturing her left humerus. She states she is chronically short of breath, but has not noticed any significant worsening of her breathing. She denies any chest discomfort. She apparently was found to be hypoxic and sent for further evaluation. O2 sats were in the 80s. Apparently, she has been hospitalized at [facility] multiple times over the last several weeks. PAST MEDICAL HISTORY: COPD, chronic kidney disease, aortic aneurysm repair by Dr. Don, last ejection fraction 40% to 45%, hypertension. OPERATIONS: Aortic aneurysm repair, renal stenting, had a hernia repair. ALLERGIES: IODINE AND SHELLFISH. MEDICATIONS: 1. Vitamin D2. 2. Furosemide 80 daily. 3. Gabapentin 400 mg t.i.d. 4. Mucinex 600 mg q.12. 5. Ibuprofen 600 daily. 6. Megace 400 mg b.i.d. 7. KCl 20 mEq daily. 8. Ranexa 500 b.i.d. 9. DuoNeb. REVIEW OF SYSTEMS: 12-point review of systems unremarkable. PHYSICAL EXAMINATION: VITAL SIGNS: Blood pressure 128/61; pulse 79, normal sinus rhythm on the monitor. HEENT: PERRL. NECK: Supple. CHEST: Reveals distant breath sounds with late expiratory wheezing. CARDIOVASCULAR EXAMINATION: S1 and S2 are normal without any S3 or S4. ABDOMEN: Normal bowel sounds without tenderness or organomegaly. EXTREMITIES: Reveal no clubbing, cyanosis, or edema. NEUROLOGICAL: Grossly intact. SKIN: Warm and dry. LABORATORY DATA: EKG revealed normal sinus rhythm with left axis deviation and interventricular conduction delay. Hemoglobin 11.1, hematocrit 35.5, white count 11,600, and platelets 291,000. Sodium 138, potassium 4.5, chloride 103, carbon dioxide 21, BUN 50, creatinine 3.7. Troponin I 0.048. BNP 2959.4. IMPRESSION: 1. Respiratory failure and hypoxemia secondary to congestive heart failure, probable pulmonary fibrosis. 2. Chronic obstructive pulmonary disease, former smoker. 3. Chronic kidney disease. 4. Status post renal artery stents. 5. Severe deconditioning. 6. Hypertension. 7. Descending thoracic aortic aneurysm on chest CT. PLAN: Echocardiogram will be performed to reassess left ventricular function. We will follow patient with you. Job ID: [id number] [facility]
[2018-08-17] MEDS: methylPREDNISolone Sod Succ 40 MG VIAL IVP SCH ×2 (00:40→05:43)
[2018-08-17 05:48] LABS: #Lymphocytes 0.6 thou/uL (1.20-3.40); #Monocytes 0.1 thou/uL (0.11-0.59); #Neutrophils 7.9 thou/uL (1.40-6.50); %Eosinophils 0.4 % (0.0-10.0); %Lymphocytes 6.7 % (21.0-51.0); %Monocytes 1.2 % (0.0-10.0); %Neutrophils 91.7 % (42.0-75.0); Hemoglobin 10.3 g/dL (12.0-16.0); Mean Corpuscular HGB CONC 30.7 g/dL (32.0-36.0); Mean Corpuscular Hemoglobin 27.2 pg (27.0-31.0); Mean Corpuscular Volume 88.5 fL (78.0-98.0); Mean Platelet Volume 7.7 fL (7.4-10.4); Platelet Count 334 thou/uL (130-400); RBC Distribution Width 15.5 % (11.5-14.5); White Blood Cell (WBC) Count 8.6 thou/uL (4.8-10.8)
[2018-08-17 05:54] LABS: PTT 27.9 SEC (22.9-36.1); Prothrombin Time 12.8 SEC (12.0-14.7)
[2018-08-17 06:13] LABS: Anion Gap 16 mmol/L (10-20); BUN (Urea Nitrogen) 55 mg/dL (9.8-20.1); Calc. Creatinine Clearance 15 mL/min (70-130); Calcium 8.5 mg/dL (7.8-10.44); Carbon Dioxide 25 mmol/L (23-31); Chloride 102 mmol/L (98-107); Estimated GFR-MDRD 14; Glucose 122 mg/dL (83-110); Potassium 4.3 mmol/L (3.5-5.1); Sodium 139 mmol/L (136-145)
[2018-08-17] MEDS: Mometasone/Formoterol 120 PUFF INHALER INH SCH ×2 (07:03→19:19)
--- NOTE | 2018-08-17 08:09 | RAD ---
SINGLE VIEW OF THE CHEST: Comparison: 08-15-18 History: Ventilated patient with respiratory failure. FINDINGS: Single view of the chest shows an enlarged but stable cardiomediastinal silhouette. There is stable f ullness in the left hilar region. Increased interstitial markings are present. There is no evidence o f consolidation, mass or pleural effusion. IMPRESSION: Stable exam. POS: [facility]
[2018-08-17] MEDS ORDERED: diphenhydrAMINE 50 MG CAP PO SCH (08:15)
[2018-08-17] MEDS ORDERED: Furosemide 40 MG/4 ML VIAL SLOW IVP SCH ×2 (09:00→09:15)
[2018-08-17] MEDS ORDERED: Heparin 5,000 UNITS/ML VIAL SC SCH (09:00)
--- NOTE | 2018-08-17 09:04 | PDOC.PN ---
- Subjective Encounter Start Date: 08/17/18 Encounter Start Time: 11:40 Subjective: Patient reports no significant SOB. No chest pain. - Objective Resuscitation Status - Order Detail: 08/15/18 22:00 Resuscitation Status Routine Resuscitation Status: FULL: Full Resuscitation MAR Reviewed: Yes Vital Signs & Weight: Vital Signs (12 hours) Temp Pulse Resp BP Pulse Ox 08/17/18 07:01 78 16 90 L 08/17/18 04:00 97.8 F 81 20 121/54 L 94 L 08/17/18 02:25 81 16 91 L 08/17/18 00:00 97.5 F L 82 20 120/58 L 98 08/16/18 22:33 79 20 90 L Weight Weight 161 lb I&O: 08/16/18 08/17/18 08/18/18 06:59 06:59 06:59 Intake Total 800 Output Total 1150 600 Balance -1150 200 Result Diagrams: 08/17/18 05:03 08/17/18 05:03 Phys Exam - Physical Examination Constitutional: NAD HEENT: moist MMs Respiratory: no wheezing, no rales, no rhonchi decent air movement Cardiovascular: RRR Gastrointestinal: soft, positive bowel sounds Musculoskeletal: no edema Neurological: non-focal, moves all 4 limbs Psychiatric: normal affect, A&O x 3 Dx/Plan (1) Acute and chronic respiratory failure with hypoxia Code(s): J96.21 - ACUTE AND CHRONIC RESPIRATORY FAILURE WITH HYPOXIA Status: Acute (2) COPD exacerbation Code(s): J44.1 - CHRONIC OBSTRUCTIVE PULMONARY DISEASE W (ACUTE) EXACERBATION Status: Acute Comment: On Zosyn, steroids, nebs from ER on 08/15/18. No significant pneumonia on CT scan and normal WBC so will switch antibioitics to doxycycline. Dr. Moralez consulted. (3) Acute on chronic systolic (congestive) heart failure Code(s): I50.23 - ACUTE ON CHRONIC SYSTOLIC (CONGESTIVE) HEART FAILURE Status : Acute Comment: EF 40-45% in January 2018, BNP severely elevated but with renal impairment at well (4) Acute renal failure superimposed on stage 3 chronic kidney disease Code(s): N17.9 - ACUTE KIDNEY FAILURE, UNSPECIFIED; N18.3 - CHRONIC KIDNEY DISEASE, STAGE 3 (MODERATE) Status: Acute Comment: Creatinine has climbed from high 1s over last year to 3 now. Uncertain eitiology. With massive increase in BNP and worsening hypoxia considered dose of IV lasix, however on discussion with Dr. Crisostomo he recommended holding off on any diuretics and consult urology for nephrostomy tube replacement. (5) Hypertension Code(s): I10 - ESSENTIAL (PRIMARY) HYPERTENSION Status: Chronic Qualifiers: Hypertension type: essential hypertension Qualified Code(s): I10 - Essential (primary) hypertension Comment: controlled (6) CAD (coronary artery disease) Code(s): I25.10 - ATHSCL HEART DISEASE OF [place] CORONARY ARTERY W/O ANG PCTRS Status: Chronic (7) H/O aortic aneurysm repair Code(s): Z98.890 - OTHER SPECIFIED POSTPROCEDURAL STATES; Z86.79 - PERSONAL HISTORY OF OTHER DISEASES OF THE CIRCULATORY SYSTEM Status: Chronic Comment : Previous aortic aneurysm repair by Dr. Don, 5-6cm lower thoracic aortic aneurysm on non-contrast CT in ER (8) Interstitial fibrosis Code(s): J84.10 - PULMONARY FIBROSIS, UNSPECIFIED Status: Chronic (9) Obstructive uropathy Code(s): N13.9 - OBSTRUCTIVE AND REFLUX UROPATHY, UNSPECIFIED Status: Chronic Comment: Will consult patient's urologist Dr. Warren for nephrostomy tube trade out- he called back and stated that we can just schedule that with IR. Will have nurse call IR to schedule replacement. - Plan cont current plan of care Creatinine worsened off Lasix. Discussed with Dr. Crisostomo and he stated -: that U/S showed kidney almost gone. Likely will need dialysis, but can try -: some Lasix today and see how she responds. * . - Discharge Day Encounter end time: 11:50
--- NOTE | 2018-08-17 09:35 | PRG ---
DATE OF SERVICE: 08/17/2018 SUBJECTIVE: This morning, she is better, less short of breath. OBJECTIVE: VITAL SIGNS: Saturations are 90% on 4 L, respiratory rate 16, temperature 97, and blood pressure 120/54. CHEST: Bilateral crackles. CARDIAC: Normal S1 and S2. No gallops. ABDOMEN: No masses. LABORATORY DATA: Creatinine 3.17. White count is unremarkable. IMPRESSION: Respiratory failure, combination of chronic obstructive pulmonary disease, pulmonary fibrosis and congestive heart failure. PLAN: Discontinue IV steroids. Switch over to oral prednisone. Hopefully, she can be discharged to a rehab soon. Job ID: [id number]
[2018-08-17] MEDS: Doxycycline 100 MG CAP PO SCH ×2 (10:56→20:26)
[2018-08-17] MEDS: Gabapentin 300 MG CAP PO SCH ×3 (10:56→20:26)
--- NOTE | 2018-08-17 12:27 | SPC ---
FLUOROSCOPIC GUIDED RIGHT PERCUTANEOUS NEPHROSTOMY CATHETER EXCHANGE: HISTORY: Long-term right percutaneous nephrostomy catheter. Need for exchange. FINDINGS: After explaining the procedure and answering all questions, the right flank and external portion of t he percutaneous nephrostomy catheter was prepped and draped in the usual sterile fashion. Sterile te chnique and fluoroscopic guidance were used to carefully exchange the indwelling drain for a new 10 F rench locking loop catheter. A small amount of contrast was instilled to confirm good placement. Th e catheter was left draining to gravity and secured externally with 2-0 Ethilon suture. The patient tolerated the procedure well and was dismissed in good condition. Fluoro time 1.3 minutes. IMPRESSION: Technically successful fluoroscopic-guided right percutaneous nephrostomy catheter exchange. POS: [facility]
[2018-08-17] MEDS: HYDROcodone/Acetaminophen 5/325 mg Tablet PO PRN (14:23)
[2018-08-17] MEDS: Heparin 5,000 UNITS/ML VIAL SC SCH ×2 (14:25→20:29)
--- NOTE | 2018-08-17 15:04 | PRG ---
DATE OF SERVICE: 08/17/2018 SUBJECTIVE: Patient was seen and examined at bedside and overnight events noted. Patient denies any shortness of breath or chest pain or palpitation. No history of nausea or vomiting or diarrhea or fever or chills or cramps. OBJECTIVE: GENERAL: This is a thin built white female, in no apparent distress. VITAL SIGNS: Temperature 97.8. Heart rate 88. Respiratory rate 20. Blood pressure 138/84. HEENT: Atraumatic, normocephalic. Oral mucosa is moist NECK: Supple. CARDIOVASCULAR: S1, S2 heard. Rate and rhythm regular. RESPIRATORY: Clear to auscultation. GASTROINTESTINAL: Abdomen is soft. MUSCULOSKELETAL: No tenderness. No edema. DERMATOLOGIC: No skin rash. NEUROLOGIC: Alert and awake and oriented X3. No focal neurologic deficits. Moving all the extremities. PSYCHIATRIC: Mood and affect normal. LABORATORY DATA: Potassium 4.3, BUN 55, and creatinine 3.1. Renal ultrasound done yesterday showed small right kidney and nonvisualization of the left kidney. ASSESSMENT AND PLAN: 1. Acute kidney injury on chronic kidney disease, stage 4. Urine output shows no improvement. Her nephrostomy tube changed out. Follow up with Urology. 2. Edema, controlled. 3. Hypertension, stable. 4. Anemia, mild. 5. Okay with Lasix now. It seems like the patient does have worsening of chronic kidney disease and might need renal replacement therapy. We will continue to monitor one more day. Job ID: [id number]
[2018-08-18] MEDS: Mometasone/Formoterol 120 PUFF INHALER INH SCH ×2 (07:03→18:40)
--- NOTE | 2018-08-18 07:14 | PRG ---
DATE OF SERVICE: 08/17/2018 SUBJECTIVE: Ms. Branham is currently doing well. States she has less shortness of breath. She is somewhat confused. I did awake her from sleep. After reviewing her most recent echo dated 01/2018, her LVEF was estimated at 20% to 25%. She was seen and evaluated by one of my partners yesterday. She recently had a fracture of her humerus. OBJECTIVE: VITAL SIGNS: Blood pressure 150/59, pulse 78, and temperature 97.9. LUNGS: Minimal rales and rhonchi bilaterally. HEART: Regular rate and rhythm. ABDOMEN: Soft, nontender, and nondistended. EXTREMITIES: 1+ pitting edema. PERTINENT LABORATORY DATA: Hemoglobin 10.3, white blood cell count 8.6. Creatinine 3.1, peak troponin 0.04. BNP of 2959. IMPRESSION: 1. Acute on chronic systolic heart failure. 2. Recent humeral fracture. RECOMMENDATIONS: After review of the notes from 2018, it appears Ms. Branham was in the process of getting workup for underlying coronary artery disease. She deferred any further treatment and decided to go home. She was not seen in the office in followup. She missed her appointment. At this point, we recommend repeating her echo, which will be reviewed. She is currently on Lasix IV, in addition to metoprolol. Job ID: [id number]
--- NOTE | 2018-08-18 07:26 | PDOC.PN ---
- Subjective Encounter Start Date: 08/18/18 Encounter Start Time: 09:10 Subjective: Patient's SOB a bit better. No other complaints. - Objective Resuscitation Status - Order Detail: 08/15/18 22:00 Resuscitation Status Routine Resuscitation Status: FULL: Full Resuscitation MAR Reviewed: Yes Vital Signs & Weight: Vital Signs (12 hours) Temp Pulse Resp BP Pulse Ox 08/18/18 07:02 76 20 98 08/18/18 04:00 97.3 F L 76 18 117/55 L 100 08/18/18 01:58 75 18 97 08/17/18 23:49 78 18 99 08/17/18 19:40 97.7 F 81 18 113/57 L 97 Weight Weight 162 lb 6.4 oz I&O: 08/17/18 08/18/18 08/19/18 06:59 06:59 06:59 Intake Total 800 750 Output Total 600 600 Balance 200 150 Result Diagrams: 08/17/18 05:03 08/18/18 11:02 Phys Exam - Physical Examination Constitutional: NAD HEENT: moist MMs Respiratory: no wheezing, no rales, no rhonchi Cardiovascular: RRR Gastrointestinal: soft, positive bowel sounds Musculoskeletal: no edema Neurological: non-focal Psychiatric: normal affect Dx/Plan (1) Acute and chronic respiratory failure with hypoxia Code(s): J96.21 - ACUTE AND CHRONIC RESPIRATORY FAILURE WITH HYPOXIA Status: Acute (2) COPD exacerbation Code(s): J44.1 - CHRONIC OBSTRUCTIVE PULMONARY DISEASE W (ACUTE) EXACERBATION Status: Acute Comment: On Zosyn, steroids, nebs from ER on 08/15/18. No significant pneumonia on CT scan and normal WBC so will switch antibioitics to doxycycline. Dr. Moralez consulted. Transitioning to oral steroids. (3) Acute on chronic systolic (congestive) heart failure Code(s): I50.23 - ACUTE ON CHRONIC SYSTOLIC (CONGESTIVE) HEART FAILURE Status : Acute Comment: EF 40-45% in January 2018, BNP severely elevated but with renal impairment at well (4) Acute renal failure superimposed on stage 3 chronic kidney disease Code(s): N17.9 - ACUTE KIDNEY FAILURE, UNSPECIFIED; N18.3 - CHRONIC KIDNEY DISEASE, STAGE 3 (MODERATE) Status: Acute Comment: Creatinine has climbed from high 1s over last year to 3 now. Uncertain eitiology. On review of patient' s renal U/S Dr. Crisostomo believes patient nearing the need for dialysis. Trying lasix for now. (5) Hypertension Code(s): I10 - ESSENTIAL (PRIMARY) HYPERTENSION Status: Chronic Qualifiers: Hypertension type: essential hypertension Qualified Code(s): I10 - Essential (primary) hypertension Comment: controlled (6) CAD (coronary artery disease) Code(s): I25.10 - ATHSCL HEART DISEASE OF [place] CORONARY ARTERY W/O ANG PCTRS Status: Chronic (7) H/O aortic aneurysm repair Code(s): Z98.890 - OTHER SPECIFIED POSTPROCEDURAL STATES; Z86.79 - PERSONAL HISTORY OF OTHER DISEASES OF THE CIRCULATORY SYSTEM Status: Chronic Comment : Previous aortic aneurysm repair by Dr. Don, 5-6cm lower thoracic aortic aneurysm on non-contrast CT in ER (8) Interstitial fibrosis Code(s): J84.10 - PULMONARY FIBROSIS, UNSPECIFIED Status: Chronic (9) Obstructive uropathy Code(s): N13.9 - OBSTRUCTIVE AND REFLUX UROPATHY, UNSPECIFIED Status: Chronic Comment: Urostomy tube changed out, f/u with Dr. Warren as outpatient. - Plan cont current plan of care, continue antibiotics, PT/OT, respiratory therapy, DVT proph w/heparin, DVT proph w/SCDs * . - Discharge Day Encounter end time: 09:20
--- NOTE | 2018-08-18 08:25 | RAD ---
PORTABLE CHEST 1 VIEW: Date: 08/18/18 Time: 0559 hours HISTORY: Respiratory distress. FINDINGS: Comparison made with exam of previous day. The heart is enlarged. The aorta is tortuous. Fullness in the left hilar region is again seen. Mild p rominence of the interstitial markings is redemonstrated. No focal areas of consolidation, pneumothor aces, or large effusions are seen. IMPRESSION: Stable exam. POS: [facility]
--- NOTE | 2018-08-18 08:32 | PRG ---
DATE OF SERVICE: 08/18/2018 SUBJECTIVE: Charo Branham is an 83-year-old female. This morning, she is doing better. She is less short of breath. OBJECTIVE: VITAL SIGNS: Saturations are 90% on 3 L, temperature 97, blood pressure 170/55. CHEST: Minimal wheezing and crackles. CARDIAC: Normal S1 and S2. No gallops. ABDOMEN: No masses. IMPRESSION: Congestive heart failure, chronic obstructive pulmonary disease, respiratory failure, advanced age, severe deconditioning. PLAN: The patient said she no longer wants to go to the rehab intermediate. She would like to go home. Pulmonary hernandez, at this stage, most of her problems are cardiac in origin. She is on adequate breathing medicine. Her chest x-ray today looks much improved. She can be discharged home any time. Antibiotics for several days. She already has other inhalers at home. Job ID: [id number]
[2018-08-18] MEDS ORDERED: Furosemide 40 MG/4 ML VIAL SLOW IVP SCH (09:00)
[2018-08-18] MEDS: predniSONE 20 MG TAB PO SCH (09:50)
[2018-08-18] MEDS: Doxycycline 100 MG CAP PO SCH ×2 (09:50→20:45)
[2018-08-18] MEDS: Heparin 5,000 UNITS/ML VIAL SC SCH ×3 (09:51→20:46)
[2018-08-18] MEDS: Gabapentin 300 MG CAP PO SCH ×3 (09:51→20:45)
[2018-08-18 11:33] LABS: Anion Gap 17 mmol/L (10-20); BUN (Urea Nitrogen) 63 mg/dL (9.8-20.1); Calc. Creatinine Clearance 16 mL/min (70-130); Calcium 8.4 mg/dL (7.8-10.44); Carbon Dioxide 23 mmol/L (23-31); Chloride 105 mmol/L (98-107); Estimated GFR-MDRD 15; Glucose 105 mg/dL (83-110); Potassium 4.7 mmol/L (3.5-5.1); Sodium 140 mmol/L (136-145)
--- NOTE | 2018-08-18 11:53 | PRG ---
DATE OF SERVICE: 08/18/2018 SUBJECTIVE: Patient was seen and examined at bedside and overnight events noted. Patient denies any shortness of breath or chest pain or palpitation. No history of nausea or vomiting or diarrhea or fever or chills or cramps. OBJECTIVE: GENERAL: This is an elderly white female, in no apparent distress. VITAL SIGNS: Temperature 98.4. Pulse 80. Respiratory rate 20. Blood pressure 132/63. HEENT: Atraumatic, normocephalic. Oral mucosa is moist NECK: Supple. CARDIOVASCULAR: S1, S2 heard. Rate and rhythm regular. RESPIRATORY: Clear to auscultation. GASTROINTESTINAL: Abdomen is soft. MUSCULOSKELETAL: No tenderness. No edema. DERMATOLOGIC: No skin rash. NEUROLOGIC: Alert and awake and oriented X3. No focal neurologic deficits. Moving all the extremities. PSYCHIATRIC: Mood and affect normal. LABORATORY DATA: No labs done today. ASSESSMENT AND PLAN: 1. Acute kidney injury on chronic kidney disease, stage 4. Repeat labs today. We will monitor closely. 2. Edema. 3. Hypertension. 4. Anemia. 5. Cardiorenal syndrome. 6. The patient's shortness of breath is much better today. We will follow. Job ID: [id number]
--- NOTE | 2018-08-18 19:43 | PRG ---
DATE OF SERVICE: 08/18/2018 SUBJECTIVE: Ms. Charo Branham feels like she is breathing better. She does have less crackles on physical exam, but still noted. OBJECTIVE: VITAL SIGNS: Blood pressure 124/57, pulse 75, respirations 20. LUNGS: Crackles noted bilaterally. HEART: Regular rate and rhythm. ABDOMEN: Soft, nontender, nondistended. EXTREMITIES: 1+ pitting edema. PERTINENT LABORATORY DATA: Hemoglobin 10.3. Creatinine 2.98, which is down from 3.17. BNP 2959. Echo Doppler shows an LVEF of 30% to 35% with moderate mitral regurgitation present. IMPRESSION: 1. [id number] systolic heart failure. 2. Acute chronic obstructive pulmonary disease. 3. Hypertension. 4. Recent humeral fracture. RECOMMENDATIONS: I would still recommend conservative therapy to Ms. Branham. There is no family to discuss the options. Her LVEF does appear to have worsened over the last year. I would recommend changing metoprolol to Coreg. I will also add Lasix and continue to monitor creatinine closely. May offer a noninvasive stress study to assess for any areas of ischemia given her creatinine. It felt to be high risk to consider angio knowing the risk of contrast nephropathy is elevated. Again, no family to discuss. Job ID: [id number]
[2018-08-18] MEDS: Carvedilol 6.25 MG TAB PO SCH (20:45)
[2018-08-19 05:47] LABS: Anion Gap 13 mmol/L (10-20); BUN (Urea Nitrogen) 61 mg/dL (9.8-20.1); Calc. Creatinine Clearance 19 mL/min (70-130); Calcium 8.3 mg/dL (7.8-10.44); Carbon Dioxide 27 mmol/L (23-31); Chloride 105 mmol/L (98-107); Estimated GFR-MDRD 18; Glucose 91 mg/dL (83-110); Potassium 4.3 mmol/L (3.5-5.1); Sodium 141 mmol/L (136-145)
[2018-08-19] MEDS: Furosemide 40 MG/4 ML VIAL IVP SCH ×2 (05:53→13:52)
[2018-08-19] MEDS: Mometasone/Formoterol 120 PUFF INHALER INH SCH ×2 (07:08→19:04)
[2018-08-19] MEDS: Heparin 5,000 UNITS/ML VIAL SC SCH ×3 (08:42→20:30)
[2018-08-19] MEDS: Gabapentin 300 MG CAP PO SCH ×3 (08:42→20:31)
[2018-08-19] MEDS: predniSONE 20 MG TAB PO SCH (08:42)
[2018-08-19] MEDS: Carvedilol 6.25 MG TAB PO SCH ×2 (08:42→20:30)
[2018-08-19] MEDS: Doxycycline 100 MG CAP PO SCH ×2 (08:42→20:30)
--- NOTE | 2018-08-19 09:10 | PDOC.PN ---
- Subjective Encounter Start Date: 08/19/18 Encounter Start Time: 10:50 Subjective: Patient states she is not sure how she feels. No active chest pain. -: Breathing well on O2. - Objective Resuscitation Status - Order Detail: 08/15/18 22:00 Resuscitation Status Routine Resuscitation Status: FULL: Full Resuscitation MAR Reviewed: Yes Vital Signs & Weight: Vital Signs (12 hours) Temp Pulse Resp BP BP Pulse Ox 08/19/18 08:42 116/56 L 08/19/18 07:37 97.8 F 73 20 126/67 96 08/19/18 07:11 99 08/19/18 07:10 67 16 99 08/19/18 07:08 67 18 99 08/19/18 04:07 97.8 F 72 20 146/64 H 98 08/19/18 03:41 67 18 94 L 08/19/18 00:00 132/61 93 L 08/18/18 23:32 69 20 98 Weight Weight 161 lb 12.8 oz I&O: 08/18/18 08/19/18 08/20/18 06:59 06:59 06:59 Intake Total 750 1710 Output Total 600 1550 Balance 150 160 Result Diagrams: 08/17/18 05:03 08/19/18 04:57 Phys Exam - Physical Examination Constitutional: NAD HEENT: moist MMs Respiratory: no rales, no rhonchi occ wheeze Cardiovascular: RRR Gastrointestinal: soft, positive bowel sounds Musculoskeletal: no edema left shoulder in splint Neurological: non-focal, moves all 4 limbs Psychiatric: normal affect, A&O x 3 Dx/Plan (1) Acute and chronic respiratory failure with hypoxia Code(s): J96.21 - ACUTE AND CHRONIC RESPIRATORY FAILURE WITH HYPOXIA Status: Acute (2) COPD exacerbation Code(s): J44.1 - CHRONIC OBSTRUCTIVE PULMONARY DISEASE W (ACUTE) EXACERBATION Status: Acute Comment: On Zosyn, steroids, nebs from ER on 08/15/18. No significant pneumonia on CT scan and normal WBC so will switch antibioitics to doxycycline. Dr. Moralez consulted. Transitioning to oral steroids. (3) Acute on chronic systolic (congestive) heart failure Code(s): I50.23 - ACUTE ON CHRONIC SYSTOLIC (CONGESTIVE) HEART FAILURE Status : Acute Comment: EF 40-45% in January 2018, BNP severely elevated but with renal impairment at well (4) Acute renal failure superimposed on stage 3 chronic kidney disease Code(s): N17.9 - ACUTE KIDNEY FAILURE, UNSPECIFIED; N18.3 - CHRONIC KIDNEY DISEASE, STAGE 3 (MODERATE) Status: Acute Comment: Creatinine has climbed from high 1s over last year to 3 now. Uncertain eitiology. On review of patient' s renal U/S Dr. Crisostomo believes patient nearing the need for dialysis. Creatinine now improving to the 2's with Lasix diuresis, likely due to cardiorenal syndrome. Continue diuresis. (5) Hypertension Code(s): I10 - ESSENTIAL (PRIMARY) HYPERTENSION Status: Chronic Qualifiers: Hypertension type: essential hypertension Qualified Code(s): I10 - Essential (primary) hypertension Comment: controlled (6) CAD (coronary artery disease) Code(s): I25.10 - ATHSCL HEART DISEASE OF [place] CORONARY ARTERY W/O ANG PCTRS Status: Chronic (7) H/O aortic aneurysm repair Code(s): Z98.890 - OTHER SPECIFIED POSTPROCEDURAL STATES; Z86.79 - PERSONAL HISTORY OF OTHER DISEASES OF THE CIRCULATORY SYSTEM Status: Chronic Comment : Previous aortic aneurysm repair by Dr. Don, 5-6cm lower thoracic aortic aneurysm on non-contrast CT in ER (8) Interstitial fibrosis Code(s): J84.10 - PULMONARY FIBROSIS, UNSPECIFIED Status: Chronic (9) Obstructive uropathy Code(s): N13.9 - OBSTRUCTIVE AND REFLUX UROPATHY, UNSPECIFIED Status: Chronic Comment: Urostomy tube changed out, f/u with Dr. Warren as outpatient. - Plan cont current plan of care, continue antibiotics, PT/OT, DVT proph w/heparin, DVT proph w/SCDs * . - Discharge Day Encounter end time: 11:00
--- NOTE | 2018-08-19 09:12 | PRG ---
DATE OF SERVICE: SUBJECTIVE: This morning, she is better, less short of breath. OBJECTIVE: VITAL SIGNS: Saturations are 96% on 2 L, respiratory rate 20, pulse 73, temperature 97, blood pressure is 126/67. CHEST: Reveals minimal crackles. CARDIAC: Normal S1, S2. No gallops. ABDOMEN: No masses. LABORATORY DATA: Creatinine is 2.5 and BUN is 61. IMPRESSION: Respiratory failure, congestive heart failure, pulmonary fibrosis, chronic obstructive pulmonary disease, renal failure. PLAN: Pulmonary hernandez, she is stable enough to be discharged home. She can see me in the office in several weeks. Taper prednisone. Job ID: [id number]
--- NOTE | 2018-08-19 10:10 | PDOC.CTH ---
Cardiology Progress Note - Subjective Pt continues with SOB. No other symptoms noted. EF on echo 30-35% - Objective Vital Signs Temp Pulse Resp BP BP Pulse Ox 08/19/18 08:42 116/56 L 08/19/18 07:37 97.8 F 73 20 126/67 96 08/19/18 07:11 99 08/19/18 07:10 67 16 99 08/19/18 07:08 67 18 99 08/19/18 04:07 97.8 F 72 20 146/64 H 98 08/19/18 03:41 67 18 94 L 08/19/18 00:00 132/61 93 L 08/18/18 23:32 69 20 98 Weight 161 lb 12.8 oz 08/18/18 08/19/18 08/20/18 06:59 06:59 06:59 Intake Total 750 1710 Output Total 600 1550 Balance 150 160 - Physical Examination General/Neuro: alert & oriented x3, NAD Neck: carotid US brisk, no JVD present Lungs: unlabored respirations Heart: RRR Abdomen: NT/ND, soft Extremities: + edema B - Labs Result Diagrams: 08/17/18 05:03 08/19/18 04:57 Troponin/CKMB CK-MB (CK-2) 2.1 ng/mL (0-6.6) 08/15/18 19:30 Troponin I 0.027 ng/mL (< 0.028) 08/16/18 01:37 - Assessment/Plan Cardiomyopathy of unknown etiology Acute on chrnoic systolic failure COPD CKD 4 Difficult situation Pt at risk of contrast nephropathy given EF and renal function Pt unable to tolerate lifevest given humeral fracture Treat medically Will disuss with family No good CV options at this point except for symptomatic treatment I will disucss with daughter
--- NOTE | 2018-08-19 10:52 | PRG ---
DATE OF SERVICE: 08/19/2018 SUBJECTIVE: Patient was seen and examined at bedside and overnight events noted. Patient denies any shortness of breath or chest pain or palpitation. No history of nausea or vomiting or diarrhea or fever or chills or cramps. OBJECTIVE: GENERAL: This is an elderly female, in no apparent distress. She is feeling better. VITAL SIGNS: Temperature 97.8. Heart rate 73. Respiratory rate . Blood pressure 124/67. HEENT: Atraumatic, normocephalic. Oral mucosa is moist NECK: Supple. CARDIOVASCULAR: S1, S2 heard. Rate and rhythm regular. RESPIRATORY: Clear to auscultation. GASTROINTESTINAL: Abdomen is soft. MUSCULOSKELETAL: No tenderness. No edema. DERMATOLOGIC: No skin rash. NEUROLOGIC: Alert and awake and oriented X3. No focal neurologic deficits. Moving all the extremities. PSYCHIATRIC: Mood and affect normal. LABORATORY DATA: Potassium is 4.3, BUN is 61, creatinine is 2.5. ASSESSMENT AND PLAN: 1. Acute kidney injury on chronic kidney disease, stage 4. Renal function is stable. 2. Edema, controlled. 3. Cardiorenal syndrome. 4. . 5. Anemia. Overall, renal function is stable. Continue Lasix. Avoid nephrotoxins. Job ID: [id number]
--- NOTE | 2018-08-19 16:06 | PRG ---
DATE OF SERVICE: Ms. Branham is currently doing well. No current complaints. She is less shortness of breath. Please see previous note for details. I spoke with Ms. Branham' daughter today. I discussed proceeding with a more aggressive versus conservative approach. The patient does have a previous history of confusion. I did state that one year ago, Ms. Branham wanted more conservative therapy. I discussed risks and benefits of both. Given her comorbidities including renal insufficiency, we decided to proceed with more conservative approach. We will continue Lasix and have her diuresed. She is currently on Coreg and we will continue. Metoprolol has been discontinued. We will avoid PILAR inhibitor therapy or ARB. Job ID: [id number]
[2018-08-20] MEDS: Furosemide 40 MG/4 ML VIAL IVP SCH ×2 (06:03→15:04)
[2018-08-20] MEDS: Mometasone/Formoterol 120 PUFF INHALER INH SCH ×2 (07:10→19:33)
[2018-08-20] MEDS: Heparin 5,000 UNITS/ML VIAL SC SCH ×2 (09:00→20:09)
[2018-08-20] MEDS: Carvedilol 6.25 MG TAB PO SCH (09:02)
[2018-08-20] MEDS: predniSONE 20 MG TAB PO SCH (09:02)
[2018-08-20] MEDS: Doxycycline 100 MG CAP PO SCH ×2 (09:02→20:09)
[2018-08-20] MEDS: Gabapentin 300 MG CAP PO SCH ×3 (09:02→20:09)
--- NOTE | 2018-08-20 09:18 | PRG ---
DATE OF SERVICE: SUBJECTIVE: This morning, she is better, awake, alert, responsive, no distress. OBJECTIVE: VITAL SIGNS: Sats 97% on room air, respirations 16, temperature 96, pulse 73, blood pressure 120/53. CHEST: Decreased breath sounds. No wheezing. CARDIAC: Normal S1, S2. No gallops. ABDOMEN: No masses. IMPRESSION: Congestive heart failure, chronic obstructive pulmonary disease, bronchitis, renal failure. PLAN: Disposition as per Cardiology home any time. Pulmonary hernandez, follow up in the office. Job ID: [id number]
[2018-08-20 09:36] LABS: Anion Gap 20 mmol/L (10-20); BUN (Urea Nitrogen) 62 mg/dL (9.8-20.1); Calc. Creatinine Clearance 17 mL/min (70-130); Calcium 8.9 mg/dL (7.8-10.44); Carbon Dioxide 25 mmol/L (23-31); Chloride 102 mmol/L (98-107); Estimated GFR-MDRD 17; Glucose 114 mg/dL (83-110); Potassium 3.7 mmol/L (3.5-5.1); Sodium 143 mmol/L (136-145)
--- NOTE | 2018-08-20 11:38 | PRG ---
DATE OF SERVICE: 08/20/2018 SUBJECTIVE: Patient was seen and examined at bedside and overnight events noted. Patient denies any shortness of breath or chest pain or palpitation. No history of nausea or vomiting or diarrhea or fever or chills or cramps. OBJECTIVE: GENERAL: This is an elderly white female, in no apparent distress. VITAL SIGNS: Temperature 96.0. Pulse 73. Respiratory rate 16. Blood pressure 121/57. HEENT: Atraumatic, normocephalic. Oral mucosa is moist NECK: Supple. CARDIOVASCULAR: S1, S2 heard. Rate and rhythm regular. RESPIRATORY: Clear to auscultation. GASTROINTESTINAL: Abdomen is soft. MUSCULOSKELETAL: No tenderness. No edema. DERMATOLOGIC: No skin rash. NEUROLOGIC: Alert and awake and oriented X3. No focal neurologic deficits. Moving all the extremities. PSYCHIATRIC: Mood and affect normal. LABORATORY DATA: Potassium is 3.7, BUN is 62, creatinine is 2.7 with a GFR of 17. ASSESSMENT AND PLAN: 1. Chronic kidney disease, stage 4, stable. but needs cautious monitoring. The patient does not require any dialysis acutely, but might need in the near future. The patient is aware and is willing to . 2. Edema. 3. Cardiorenal syndrome. 4. Anemia. 5. Hypertension. 6. Renal function is stable. No acute indication for dialysis. Continue medical management, and follow up with Cardiology. Job ID: [id number]
--- NOTE | 2018-08-20 11:52 | PDOC.PN ---
- Subjective Encounter Start Date: 08/20/18 (f/u dyspnea) Encounter Start Time: 11:50 Subjective: pt denies any breathing problems - states she doesnt remember -: having a problem that brought her in. Denies pain. Reports -: she uses 4L oxygen regularly - Objective Resuscitation Status - Order Detail: 08/15/18 22:00 Resuscitation Status Routine Resuscitation Status: FULL: Full Resuscitation Vital Signs & Weight: Vital Signs (12 hours) Temp Pulse Resp BP BP Pulse Ox 08/20/18 11:07 73 16 08/20/18 09:02 127/59 L 08/20/18 08:00 96.0 F L 73 16 121/57 L 97 08/20/18 07:10 80 16 08/20/18 07:06 97 08/20/18 07:02 80 16 08/20/18 03:35 97.9 F 77 16 127/70 98 08/20/18 03:00 60 18 97 Weight Weight 159 lb 8 oz I&O: 08/19/18 08/20/18 08/21/18 06:59 06:59 06:59 Intake Total 1710 970 Output Total 1550 1400 Balance 160 -430 Result Diagrams: 08/17/18 05:03 08/20/18 08:41 EKG Reviewed by me: Yes (tele - sinus 60-90's) Phys Exam - Physical Examination Constitutional: NAD Respiratory: no wheezing, no rales scattered rhonchi Cardiovascular: RRR, no significant murmur Gastrointestinal: soft, non-tender, no distention, positive bowel sounds left shoulder brace in place Deviation from normal: right leg bag for nephrostomy tube Dx/Plan (1) CKD (chronic kidney disease) Code(s): N18.9 - CHRONIC KIDNEY DISEASE, UNSPECIFIED Status: Acute Qualifiers: Chronic kidney disease stage: stage 4 (severe) Qualified Code(s): N18.4 - Chronic kidney disease, stage 4 (severe) (2) Acute and chronic respiratory failure with hypoxia Code(s): J96.21 - ACUTE AND CHRONIC RESPIRATORY FAILURE WITH HYPOXIA Status: Acute (3) Acute on chronic systolic (congestive) heart failure Code(s): I50.23 - ACUTE ON CHRONIC SYSTOLIC (CONGESTIVE) HEART FAILURE Status : Acute (4) CAD (coronary artery disease) Code(s): I25.10 - ATHSCL HEART DISEASE OF [place] CORONARY ARTERY W/O ANG PCTRS Status: Chronic (5) Obstructive uropathy Code(s): N13.9 - OBSTRUCTIVE AND REFLUX UROPATHY, UNSPECIFIED Status: Chronic - Plan * Appreciate multiple consultants with patient's care: Cardiology, Pulmonology , Nephrology * * Pt desires discharge to home when ready - home health being arranged * meds reviewed - only changed heparin to bid * * code status full * * discussed with patient my role, that when cleared by specialists I will assist with her discharge. no questions or furhter needs at end of eval. Pt at high risk of decompensation and recurrent admissions given multiple significant co-morbidities.
--- NOTE | 2018-08-20 13:52 | PDOC.CTH ---
Cardiology Progress Note - Subjective No complaints. Feels ok. - Objective Vital Signs Temp Pulse Resp BP BP Pulse Ox 08/20/18 12:05 97.2 F L 78 16 130/62 08/20/18 11:07 73 16 08/20/18 09:02 127/59 L 08/20/18 08:00 96.0 F L 73 16 121/57 L 95 08/20/18 07:10 80 16 08/20/18 07:06 97 08/20/18 07:02 80 16 08/20/18 03:35 97.9 F 77 16 127/70 98 08/20/18 03:00 60 18 97 Weight 159 lb 8 oz 08/19/18 08/20/18 08/21/18 06:59 06:59 06:59 Intake Total 1710 970 Output Total 1550 1400 Balance 160 -430 - Physical Examination General/Neuro: alert & oriented x3 Neck: no JVD present Lungs: other: (bilateral exp wheeze and basilar rales; few rhonchi) Heart: RRR Abdomen: NT/ND Extremities: other: (no edema) - Telemetry Telemetry Rhythm: SR - Labs Result Diagrams: 08/17/18 05:03 08/20/18 08:41 Troponin/CKMB CK-MB (CK-2) 2.1 ng/mL (0-6.6) 08/15/18 19:30 Troponin I 0.027 ng/mL (< 0.028) 08/16/18 01:37 - Assessment/Plan 1. Acute on chronic systolic CHF 2. Cardiomyopathy of unknown etiology 3. COPD 4. CKD 4 Diurese per renal. Cr improved. Family wishing for conservative treatment. No changes today. Poor ch[facility] prognosis.
[2018-08-20] MEDS: Carvedilol 3.125 MG TAB PO SCH (20:09)
[2018-08-21] MEDS: Furosemide 40 MG/4 ML VIAL IVP SCH (05:28)
[2018-08-21 05:57] LABS: #Eosinphils 0.1 thou/uL (0.0-0.7); #Lymphocytes 2.6 thou/uL (1.20-3.40); #Monocytes 0.8 thou/uL (0.11-0.59); #Neutrophils 14.3 thou/uL (1.40-6.50); %Basophils 0.2 % (0.0-1.0); %Eosinophils 0.5 % (0.0-10.0); %Lymphocytes 14.4 % (21.0-51.0); %Monocytes 4.4 % (0.0-10.0); %Neutrophils 80.5 % (42.0-75.0); Hemoglobin 11.5 g/dL (12.0-16.0); Mean Corpuscular HGB CONC 29.3 g/dL (32.0-36.0); Mean Corpuscular Hemoglobin 26.1 pg (27.0-31.0); Platelet Count 293 thou/uL (130-400); RBC Distribution Width 15.4 % (11.5-14.5); Red Blood Cell (RBC) Count 4.41 mill/uL (4.20-5.40); White Blood Cell (WBC) Count 17.8 thou/uL (4.8-10.8)
[2018-08-21 06:17] LABS: Anion Gap 10 mmol/L (10-20); BUN (Urea Nitrogen) 67 mg/dL (9.8-20.1); Calc. Creatinine Clearance 19 mL/min (70-130); Carbon Dioxide 34 mmol/L (23-31); Chloride 101 mmol/L (98-107); Estimated GFR-MDRD 19; Glucose 78 mg/dL (83-110); Potassium 4.1 mmol/L (3.5-5.1); Sodium 141 mmol/L (136-145)
[2018-08-21] MEDS: Mometasone/Formoterol 120 PUFF INHALER INH SCH ×2 (06:57→19:26)
[2018-08-21] MEDS ORDERED: Furosemide 20 MG TAB PO SCH (09:00)
[2018-08-21] MEDS: Furosemide 40 MG TAB PO SCH ×2 (09:09→14:43)
[2018-08-21] MEDS: predniSONE 20 MG TAB PO SCH (09:09)
[2018-08-21] MEDS: Doxycycline 100 MG CAP PO SCH ×2 (09:09→20:21)
[2018-08-21] MEDS: Gabapentin 300 MG CAP PO SCH ×3 (09:09→20:21)
[2018-08-21] MEDS: Carvedilol 3.125 MG TAB PO SCH ×2 (09:09→20:21)
[2018-08-21] MEDS: Heparin 5,000 UNITS/ML VIAL SC SCH ×2 (09:10→20:21)
--- NOTE | 2018-08-21 12:45 | PRG ---
DATE OF SERVICE: 08/21/2018 SUBJECTIVE: This morning, she is better. OBJECTIVE: Her temperature is 98, pulse 89, respiratory rate 18, sats 90% on 3 L, blood pressure 120/75. CHEST: Decreased breath sounds. No wheezing. CARDIAC: Normal S1, S2. No gallops. ABDOMEN: No masses. LABORATORY DATA: White count 09629, H and H 11 and 35, BUN and creatinine at 67 and 2.4. IMPRESSION: 1. Azotemia secondary to diuretics. 2. Chronic obstructive pulmonary disease. 3. Cardiomyopathy. At this stage, continue prednisone, antibiotics. If azotemia is to improve, they have to cut back on her diuretics. Job ID: [id number]
--- NOTE | 2018-08-21 12:51 | PDOC.PN ---
- Subjective Encounter Start Date: 08/21/18 Encounter Start Time: 12:49 Patient seen and examined, states she has no new issues or complaints, all questions answered. No family at bedside. - Objective Resuscitation Status - Order Detail: 08/15/18 22:00 Resuscitation Status Routine Resuscitation Status: FULL: Full Resuscitation Vital Signs & Weight: Vital Signs (12 hours) Temp Pulse Resp BP Pulse Ox 08/21/18 12:00 98.6 F 83 20 118/65 95 08/21/18 11:37 89 16 08/21/18 08:00 98.1 F 89 18 120/75 97 08/21/18 06:57 76 16 08/21/18 06:50 99 08/21/18 06:49 76 16 08/21/18 04:00 97.4 F L 75 22 H 120/57 L 100 08/21/18 03:04 75 18 97 Weight Weight 159 lb 12.8 oz I&O: 08/20/18 08/21/18 08/22/18 06:59 06:59 06:59 Intake Total 970 1040 Output Total 1400 1200 Balance -430 -160 Result Diagrams: 08/21/18 05:24 08/21/18 05:24 Phys Exam - Physical Examination Constitutional: NAD HEENT: PERRLA, moist MMs, sclera anicteric Neck: no nodes, no JVD, supple coarse breath sounds, wheezing no respiratory distress 2/6 ELIZ tachycardia Gastrointestinal: soft, non-tender, no distention Musculoskeletal: pulses present, edema present Neurological: non-focal, normal sensation Psychiatric: normal affect, A&O x 3 Dx/Plan (1) Acute renal failure superimposed on stage 3 chronic kidney disease Code(s): N17.9 - ACUTE KIDNEY FAILURE, UNSPECIFIED; N18.3 - CHRONIC KIDNEY DISEASE, STAGE 3 (MODERATE) Status: Acute Comment: Creatinine has climbed from high 1s over last year to 3 now. Uncertain eitiology. On review of patient' s renal U/S Dr. Crisostomo believes patient nearing the need for dialysis. Creatinine now improving to the 2's with Lasix diuresis, likely due to cardiorenal syndrome. Continue diuresis. (2) COPD exacerbation Code(s): J44.1 - CHRONIC OBSTRUCTIVE PULMONARY DISEASE W (ACUTE) EXACERBATION Status: Acute Comment: On Zosyn, steroids, nebs from ER on 2/19. No significant pneumonia on CT scan and normal WBC so will switch antibioitics to doxycycline. Dr. Moralez consulted. Transitioning to oral steroids. (3) Demand ischemia Code(s): I24.8 - OTHER FORMS OF ACUTE ISCHEMIC HEART DISEASE Status: Acute (4) CAD (coronary artery disease) Code(s): I25.10 - ATHSCL HEART DISEASE OF [place] CORONARY ARTERY W/O ANG PCTRS Status: Chronic - Plan * continue current plan of care * patient appears to believe she is going to make a full recovery, she was informed about her current medical condition and her physical health, she wants to remain a full code and pursue aggressive care * will await C arrangement * DC plans once C arranged * no changes in plan of care * case and plan d/w patient at length, she understood and agreed with this plan.
--- NOTE | 2018-08-21 16:00 | EKG ---
Test Reason : SOB Blood Pressure : / mmHG Vent. Rate : 081 BPM Atrial Rate : 081 BPM P-R Int : 158 ms QRS Dur : 128 ms QT Int : 376 ms P-R-T Axes : -16 -35 125 degrees QTc Int : 436 ms Normal sinus rhythm Left axis deviation Left ventricular hypertrophy with QRS widening and repolarization abnormality Cannot rule out Septal infarct , age undetermined Inferior infarct , age undetermined Abnormal ECG Confirmed by JEAN CLAUDE CORDOBA ([id number]), research editor MIKE REAL ([id number]) on 08/21/2018 3:59:43 PM Referred By: Confirmed By:JEAN CLAUDE CORDOBA
--- NOTE | 2018-08-21 16:01 | PRG ---
DATE OF SERVICE: 08/21/2018 SUBJECTIVE: Patient was seen and examined at bedside and overnight events noted. Patient denies any shortness of breath or chest pain or palpitation. No history of nausea or vomiting or diarrhea or fever or chills or cramps. OBJECTIVE: GENERAL: This is an elderly female in no apparent distress. VITAL SIGNS: Temperature 98.6. Heart rate 82. Respiratory rate 20. Blood pressure 119/65. HEENT: Atraumatic, normocephalic. Oral mucosa is moist NECK: Supple. CARDIOVASCULAR: S1, S2 heard. Rate and rhythm regular. RESPIRATORY: Clear to auscultation. GASTROINTESTINAL: Abdomen is soft. MUSCULOSKELETAL: No tenderness. No edema. DERMATOLOGIC: No skin rash. NEUROLOGIC: Alert and awake and oriented X3. No focal neurologic deficits. Moving all the extremities. PSYCHIATRIC: Mood and affect normal. LABORATORY DATA: Potassium is 4.1, BUN is 67, creatinine is 2.4. ASSESSMENT AND PLAN: 1. Chronic kidney disease, stage IV, stable. We will change Lasix to oral Lasix 40 mg p.o. b.i.d. 2. Edema. Continue Lasix as tolerated. 3. Cardiorenal syndrome. 4. Hypertension. 5. Renal function is stable. We will change Lasix to oral dose and monitor, limit fluid intake and we will monitor. No acute indication for dialysis even though the patient might need in the near future. We will follow. Job ID: [id number]
[2018-08-22] MEDS: Mometasone/Formoterol 120 PUFF INHALER INH SCH (06:42)
[2018-08-22] MEDS: predniSONE 20 MG TAB PO SCH (09:13)
[2018-08-22] MEDS: Carvedilol 3.125 MG TAB PO SCH ×2 (09:13→12:17)
[2018-08-22] MEDS: Gabapentin 300 MG CAP PO SCH (09:13)
[2018-08-22] MEDS: Furosemide 40 MG TAB PO SCH (09:13)
[2018-08-22] MEDS: Heparin 5,000 UNITS/ML VIAL SC SCH (09:14)
--- NOTE | 2018-08-22 10:52 | PDOC.EVN ---
Event Note - Event Note Event Note: DC SUMMARY #[id number]
--- NOTE | 2018-08-22 11:42 | PRG ---
DATE OF SERVICE: 08/22/2018 SUBJECTIVE: This morning, she is better, less short of breath. Saturations are still 95 on 3 L, respirations 16, pulse is 77, temperature 98, blood pressure 95/49. She denies any pain or discomfort. No lab was ordered today. OBJECTIVE: CHEST: Decreased breath sounds. No wheezing. CARDIAC: Normal S1, S2. No gallops. ABDOMEN: No masses. IMPRESSION: 1. Chronic obstructive pulmonary disease. 2. Congestive heart failure. 3. Azotemia. Home follow up with Dr. Moralez in a month. Job ID: [id number]
[2018-08-22] MEDS: Doxycycline 100 MG CAP PO SCH (12:17)
--- NOTE | 2018-08-22 13:19 | PRG ---
DATE OF SERVICE: 08/22/2018 SUBJECTIVE: Patient was seen and examined at bedside and overnight events noted. Patient denies any shortness of breath or chest pain or palpitation. No history of nausea or vomiting or diarrhea or fever or chills or cramps. OBJECTIVE: GENERAL: This is an elderly female in no apparent distress. VITAL SIGNS: Temperature 98.5, heart rate 85, respiratory rate 20, blood pressure 95/49. HEENT: Atraumatic, normocephalic. Oral mucosa is moist NECK: Supple. CARDIOVASCULAR: S1, S2 heard. Rate and rhythm regular. RESPIRATORY: Clear to auscultation. GASTROINTESTINAL: Abdomen is soft. MUSCULOSKELETAL: No tenderness. No edema. DERMATOLOGIC: No skin rash. NEUROLOGIC: Alert and awake and oriented X3. No focal neurologic deficits. Moving all the extremities. PSYCHIATRIC: Mood and affect normal. LABORATORY DATA: No labs. ASSESSMENT AND PLAN: 1. Acute kidney injury and chronic kidney stage 4, monitor on diuretics. 2. Edema. 3. Cardiorenal syndrome. 4. Hypertension. Monitor renal function closely. No acute indication for dialysis. The patient is to closely follow up as an outpatient. The patient is advised to follow up closely. Job ID: [id number]
[2018-08-22 13:20] VITALS: BP 114/59; TEMP 97.9
--- NOTE | 2018-08-22 13:29 | DIS ---
DATE OF ADMISSION: 08/15/2018 DATE OF DISCHARGE: 08/22/2018 ADMITTING DIAGNOSES: 1. Shortness of breath. 2. Hypoxia. 3. Chronic obstructive pulmonary disease. 4. Hypertension. 5. Congestive heart failure. 6. Acute kidney injury. DISCHARGE DIAGNOSES: 1. Shortness of breath, improved. 2. Congestive heart failure, stable. 3. Chronic obstructive pulmonary disease, stable. 4. Acute kidney injury, resolving. HOSPITAL COURSE: This is an 83-year-old female, who presented to the ER with desaturation. The patient had hypoxia noted. 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 Bilateral chronic lung disease extensively noted as well as some cardiomegaly. The patient was also found to have some overt heart failure. Chest x-ray showed bilateral chronic lung changes similar to the ones noted in CT as well as pulmonary edema. The patient was admitted to Internal Medicine Team and was followed very closely also by Nephrology, Pulmonary, and Urology. Palliative Care was consulted for advanced care directives. The patient was treated for a course of 7 days throughout her stay here. Family and the patient at the point of time of discharge stated that they did not want to go to the rehab where she had originally been, stated that they preferred that the patient come home, the patient does not want to have home health care either. Echocardiogram performed showed an ejection fraction of 30% to 35% along with moderate MR as well as mildly dilated left atrium. The patient was also noted to have systolic and diastolic dysfunction on the echo. The patient at point of time of discharge was stable. Denied any nausea, vomiting, diarrhea, constipation, chest pain, fevers, chills, or shortness of breath. Case was discussed with the patient at length. End-of-life discussions were briefed. However, the patient stated that she was not interested in discussing them. This was also discussed with the patient's daughter, Mary Jane Steward over phone, was the number used to reach her. She agreed that end of life would be a thing to discuss and stated that she will do so with her mother in correlation with the primary care physician. The patient was to be discharged, advised to take Lasix 40 daily instead of 80; however, if she did have a weight gain of more than 5 pounds in a 24-hour period, to take an extra Lasix of 40. Otherwise, the patient was stable. Home health care offered to patient, however both her and her daughter refused stating they will follow up with their PCP for further care and arrangement. DISPOSITION: Home. FOLLOWUP: Follow up with PCP in 1 week. CONDITION: Stable. PROGNOSIS: Poor. ACTIVITY: As tolerated with assistance as needed. DIET: Low-fat, low-calorie, high-fiber. Case and plan discussed with the patient in person and her daughter via phone at length and they understand and agree with this plan. Job ID: [id number] [facility]
== END 2018-08-22 14:26 | disposition home or self-care (01) | DRG 280 ==
LOC: ERS 18:48 → 2NO 20:10 → T4-B 08-21 15:53
PROVIDERS: ADMIT Hospitalist; ATTEND Hospitalist
PROC: 0T25X0Z Change Drainage Device in Kidney, External Approach (ICD-10-PCS; principal; 2018-08-15)
DX: I13.0 Hypertensive heart and chronic kidney disease with heart failure and stage 1 through stage 4 chronic kidney disease, or unspecified chronic kidney disease (principal); I21.A1 Myocardial infarction type 2; I50.23 Acute on chronic systolic (congestive) heart failure; J96.21 Acute and chronic respiratory failure with hypoxia; J44.1 Chronic obstructive pulmonary disease with (acute) exacerbation; N17.9 Acute kidney failure, unspecified; E87.1 Hypo-osmolality and hyponatremia; J44.0 Chronic obstructive pulmonary disease with (acute) lower respiratory infection; N18.4 Chronic kidney disease, stage 4 (severe); I24.8 Other forms of acute ischemic heart disease; I42.9 Cardiomyopathy, unspecified; J20.9 Acute bronchitis, unspecified; I25.10 Atherosclerotic heart disease of native coronary artery without angina pectoris; Z98.890 Other specified postprocedural states; J84.10 Pulmonary fibrosis, unspecified; N13.9 Obstructive and reflux uropathy, unspecified; D63.1 Anemia in chronic kidney disease; Z87.891 Personal history of nicotine dependence
CPT/HCPCS: 36415; 50431; 50435; 71045; 71250; 75984; 76770; 80048; 80053; 82553; 83605; 83880; 84484; 85025; 85610; 85730; 93005; 93306; 94640; 96361; 96365; 96375; C1769; J1644; J1650; J1940; J2543; J2920; J7050; J7506; J7620

== ENCOUNTER 2018-08-25 11:50 | Observation (INO) | payer MEDICARE, OTHER ==
[2018-08-25 12:33] LABS: Bilirubin Negative (Negative); Blood, Urine Small (Negative); Clarity CLOUDY (Clear); Glucose, Urine (Dipstick) Negative (Negative); Leukocyte Large (Negative); Nitrite Negative (Negative); Protein, Urine (Dipstick) 30 mg/dL (Neg-Trace); Specific Gravity, Urine 1.014 (1.002-1.036)
[2018-08-25 12:34] LABS: Bacteria/HPF 1+ HPF (None Seen); Pathc Cast-AUWi Flag 2.47 (0-2.49); Squamous Epithelial 0-3 HPF (0-3)
[2018-08-25 12:36] LABS: #Eosinphils 0.2 thou/uL (0.0-0.7); #Lymphocytes 3.1 thou/uL (1.20-3.40); #Monocytes 1.5 thou/uL (0.11-0.59); #Neutrophils 12.9 thou/uL (1.40-6.50); %Basophils 0.2 % (0.0-1.0); %Lymphocytes 17.5 % (21.0-51.0); %Monocytes 8.4 % (0.0-10.0); Mean Corpuscular HGB CONC 30.5 g/dL (32.0-36.0); Mean Corpuscular Hemoglobin 27.7 pg (27.0-31.0); Mean Corpuscular Volume 90.9 fL (78.0-98.0); Mean Platelet Volume 9.2 fL (7.4-10.4); Platelet Count 184 thou/uL (130-400); RBC Distribution Width 15.4 % (11.5-14.5); Red Blood Cell (RBC) Count 4.32 mill/uL (4.20-5.40); White Blood Cell (WBC) Count 17.6 thou/uL (4.8-10.8)
[2018-08-25 12:38] LABS: Yeast-AUWi Flag 256.4 (0-25.0)
[2018-08-25 12:52] LABS: Yeast-All Forms 2+ HPF (None Seen)
[2018-08-25 12:54] LABS: Hyaline Casts/LPF NONE SEEN LPF (0-3 Hyaline); WBC/HPF 21-50 HPF (0-3)
--- NOTE | 2018-08-25 12:56 | RAD ---
FRONTAL VIEW ABDOMEN: Comparison: 08-18-18 Indication: Dizziness. FINDINGS: There is prominence of the cardiomediastinal silhouette. Diffuse interstitial opacities are seen bila terally. There is vascular calcification and osseous degenerative changes. IMPRESSION: Findings which indicate CHF. Bilateral interstitial opacities may relate to associated edema versus i nterstitial lung disease. POS: [facility]
[2018-08-25 13:12] LABS: ALT (SGPT) 22 U/L (8-55); AST (SGOT) 19 U/L (5-34); Albumin 3.4 g/dL (3.4-4.8); Alkaline Phosphatase 71 U/L (40-150); Anion Gap 17 mmol/L (10-20); BUN (Urea Nitrogen) 65 mg/dL (9.8-20.1); Bilirubin, Total 0.4 mg/dL (0.2-1.2); CK (CPK) 19 U/L (29-168); Calc. Creatinine Clearance 0 mL/min (70-130); Calcium 8.9 mg/dL (7.8-10.44); Carbon Dioxide 31 mmol/L (23-31); Estimated GFR-MDRD 23; Globulin 2.6 g/dL (2.4-3.5); Glucose 125 mg/dL (83-110); Lipase 17 U/L (8-78); Potassium 4.1 mmol/L (3.5-5.1); Sodium 145 mmol/L (136-145)
[2018-08-25 13:20] LABS: Chloride 101 mmol/L (98-107)
[2018-08-25 13:35] LABS: CKMB 1.5 ng/mL (0-6.6)
[2018-08-25] MEDS ORDERED: cefTRIAXone\\ROCEPHIN 2 GM VIAL ONE (14:04)
[2018-08-25] MEDS ORDERED: Aspirin Chewable 81 MG TAB ONE ×2 (14:04→14:08)
[2018-08-25] MEDS ORDERED: Guaifenesin DM 100-10/5 ML UDCUP PO PRN (15:06)
[2018-08-25] MEDS ORDERED: Acetaminophen 325 MG TAB PO PRN (15:06)
[2018-08-25] MEDS ORDERED: Hydrocortisone Sod Succ/PF 100 mg/2 ml Vial ONE (15:14)
--- NOTE | 2018-08-25 16:19 | HP ---
REASON FOR ADMISSION: Hypotension, diarrhea, generalized weakness. HISTORY OF PRESENT ILLNESS: The patient got discharged on the 10th of this month after a prolonged stay in the hospital including ICU. She apparently was wheelchair bound and wanted to go home. She did not want to be placed anywhere. She was staying with her granddaughter and her . She has been having loose stools from last 2 days, which the patient says around 2 to 3 per day. The patient was also feeling dizzy and weak. The granddaughter called EMS and the patient was brought here. The patient is furious that the granddaughter called EMS as she did not want to come to ER. She has no complaints of shortness of breath, chest pain, palpitation, PND, or orthopnea. On arrival, had systolic blood pressures in the 80s and was given a liter of IV fluid. It has come up to 124 systolic at present. The patient was discharged on steroids, prednisone, and multiple other medications, which the patient has not filled. She has only filled prescriptions for Lasix, doxycycline, and Coreg. No complaints of nausea, abdominal pain, or fever at home. PAST MEDICAL AND SURGICAL HISTORY: History of COPD, which is oxygen dependent; right nephrostomy tube with prior history of multiple stents placed; hypertension; chronic kidney disease stage 3-4, history of lobectomy, aortic aneurysm repair by Dr. Don, hernia repair, history of breast cancer with prior treatment with radiation and surgery, and history of CHF with EF of around 35%. CURRENT MEDICATIONS: The patient is taking only these 3 medications that is; 1. Lasix 40 mg twice daily. 2. Doxycycline 100 mg twice daily. 3. Coreg 3.125 mg twice daily. ALLERGIES: TO SHELLFISH, IODINE, AND SULFA. PERSONAL HISTORY: Quit smoking more than 10 years ago. Does not abuse alcohol or drugs. She lives with her granddaughter. The patient claims she can walk with a rolling walker, but has not been doing so at her home. FAMILY HISTORY: No report of any inheritable disease. CODE STATUS: DNAR. This was discussed with the patient in room 8 of the emergency room. Her daughter was a witness to it. REVIEW OF SYSTEMS: CONSTITUTIONAL: Negative for weight loss or gain, ability to conduct usual activities. SKIN: Negative for rash, itching. EYES: Negative for double vision, pain. ENT/MOUTH: Negative for nose bleeding, neck stiffness, pain, tenderness. CARDIOVASCULAR: Negative for palpitations, dyspnea on exertion, orthopnea. RESPIRATORY: Negative for shortness of breath, wheezing, cough, hemoptysis, fever or night sweats. GASTROINTESTINAL: Negative for poor appetite, abdominal pain, heartburn, nausea , vomiting, constipation. GENITOURINARY: Negative for urgency, frequency, dysuria, nocturia. MUSCULOSKELETAL: Negative for pain, swelling. NEUROLOGIC/PSYCHIATRIC: Negative for anxiety, depression. ALLERGY/IMMUNOLOGIC: Negative for skin rash, bleeding tendency. PHYSICAL EXAMINATION: GENERAL: The patient is 83-year-old female, who is currently not in any acute distress. VITAL SIGNS: Blood pressure currently 124/66, pulse 82 per minute, respiratory rate 20 per minute, temperature 97.4 degrees Fahrenheit, and saturating 98% on 3 L nasal cannula. NECK: Supple. No elevated JVD. HEENT: Eyes; extraocular muscles intact. Pupils reacting to light. Oral cavity, mucous membranes are dry. No exudates or congestion. CARDIOVASCULAR SYSTEM: S1 and S2 heard. Regular rhythm. RESPIRATORY SYSTEM: Air entry 1+ bilateral. Scattered rhonchi plus no rales or wheezes. ABDOMEN: Soft. Bowel sounds heard. No tenderness, rigidity, or guarding. Has a nephrostomy tube on the right side. EXTREMITIES: No peripheral edema or calf tenderness. VASCULAR SYSTEM: Peripheral pulses 1+ bilateral. There is acrocyanosis. No gangrene in the digits. CENTRAL NERVOUS SYSTEM: No gross focal deficits noted. The patient moves all 4 extremities. PSYCHIATRIC SYSTEM: The patient is a bit anxious. Otherwise, no hallucinations or delusions. LABORATORY DATA: White count of 17, H and H of 12 and 39, platelet count 184, and MCV is 90 with 73% neutrophils. BUN 65, creatinine 2.0, serum bicarb 31, and serum glucose 125. Troponin I 0.04. CK-MB 1.5. CK levels 19. Lipase is 17. UA shows large leukocyte esterase, 21 to 50 wbc's, and 1+ bacteria. There is also 2+ yeast. IMAGING DATA: Chest x-ray done shows chronic interstitial lung disease findings. EKG done shows normal sinus rhythm at 80 beats per minute. There is incomplete LBBB seen with LVH strain pattern. CLINICAL IMPRESSION AND PLAN: The patient will be under observation on telemetry for episodes of loose stools with recent hospitalization and being on antibiotics to rule out Clostridium difficile. She was also hypotensive, likely due to diarrheal disease with volume depletion. She was given a liter of fluid in the ER, which has promptly brought her blood pressure up. Also, the patient was discharged on prednisone 10 mg a day, which she has not filled. She is getting 100 mg of hydrocortisone in the ER. We will continue her prednisone from tomorrow. The patient was also discharged on doxycycline during her recent stay here and will continue the same. If her Clostridium difficile comes back positive, she will be placed on appropriate antibiotics for the same. The patient is adamant of going home, although her family cannot take care of her due to her being wheelchair dependent in poor functional status. The patient is adamant that she does not want to be placed anywhere including Rehab, Long-Term, or Swing Bed. We will get Case Management help for discharge planning. The patient has nephrostomy tube and likely her UA findings might be colonization. In view of her initial blood pressures being low, we will obtain blood and urine culture stat as well. We will continue her Coreg, doxycycline, Pepcid, DuoNeb, Megace, and Ranexa as before. The patient's overall prognosis is poor with recurrent hospitalizations. She also has chronic left humerus fracture for which I am not sure she has followed up with her orthopedic surgeon. She does not recall his name, but does say that his name starts with a Johnathan. She has expressed her desire not to be resuscitated. Job ID: [id number] MTDD
[2018-08-25] MEDS: guaiFENesin ER 600 MG TAB PO SCH (18:39)
--- NOTE | 2018-08-25 20:28 | PDOC.EVN ---
Event Note - Event Note Event Note: Pt and family have requested to the RN change in code status to full code, will follow pt's wishes
[2018-08-25] MEDS: Doxycycline 100 MG CAP PO SCH (22:03)
[2018-08-25] MEDS: Gabapentin 100 MG CAP PO SCH (22:03)
[2018-08-25] MEDS: Megestrol Acetate 800 MG/20 ML UDCUP PO SCH (22:04)
[2018-08-25] MEDS: Carvedilol 3.125 MG TAB PO SCH (22:04)
[2018-08-26] MEDS: guaiFENesin ER 600 MG TAB PO SCH (05:05)
[2018-08-26 06:23] LABS: #Lymphocytes 1.4 thou/uL (1.20-3.40); #Monocytes 0.2 thou/uL (0.11-0.59); #Neutrophils 9.7 thou/uL (1.40-6.50); %Basophils 0.2 % (0.0-1.0); %Eosinophils 0.4 % (0.0-10.0); %Lymphocytes 12.3 % (21.0-51.0); %Neutrophils 85.2 % (42.0-75.0); Hemoglobin 10.3 g/dL (12.0-16.0); Mean Corpuscular HGB CONC 30.3 g/dL (32.0-36.0); Mean Corpuscular Hemoglobin 27.3 pg (27.0-31.0); Mean Corpuscular Volume 90.1 fL (78.0-98.0); Mean Platelet Volume 9.2 fL (7.4-10.4); Platelet Count 180 thou/uL (130-400); RBC Distribution Width 15.3 % (11.5-14.5); Red Blood Cell (RBC) Count 3.77 mill/uL (4.20-5.40); White Blood Cell (WBC) Count 11.3 thou/uL (4.8-10.8)
[2018-08-26 06:45] LABS: Anion Gap 13 mmol/L (10-20); BUN (Urea Nitrogen) 63 mg/dL (9.8-20.1); Calc. Creatinine Clearance 22 mL/min (70-130); Calcium 8.7 mg/dL (7.8-10.44); Carbon Dioxide 33 mmol/L (23-31); Chloride 102 mmol/L (98-107); Estimated GFR-MDRD 23; Glucose 93 mg/dL (83-110); Potassium 4.2 mmol/L (3.5-5.1); Sodium 144 mmol/L (136-145)
[2018-08-26] MEDS ORDERED: predniSONE 5 MG TAB PO SCH (08:00)
[2018-08-26] MEDS: Doxycycline 100 MG CAP PO SCH (08:55)
[2018-08-26] MEDS: Megestrol Acetate 800 MG/20 ML UDCUP PO SCH (08:55)
[2018-08-26] MEDS: Carvedilol 3.125 MG TAB PO SCH (08:55)
[2018-08-26] MEDS: Gabapentin 100 MG CAP PO SCH (08:56)
[2018-08-26] MEDS ORDERED: Famotidine 20 MG TAB PO SCH (09:00)
[2018-08-26] MEDS ORDERED: Enoxaparin Sodium 30 MG/0.3 ML SYRINGE SC SCH (09:00)
--- NOTE | 2018-08-26 10:56 | PDOC.PN ---
- Subjective Encounter Start Date: 08/26/18 Encounter Start Time: 09:30 Subjective: feels good, is ready to go home -: no diarrhea, has had formed stools -: no sob, has ambulated with PT and rw - Objective Resuscitation Status - Order Detail: 08/25/18 15:00 Resuscitation Status Routine Resuscitation Status: FULL: Full Resuscitation Discussed with: as reported by pt and family MAR Reviewed: Yes Vital Signs & Weight: Vital Signs (12 hours) Temp Pulse Resp BP Pulse Ox 08/26/18 08:00 97.8 F 78 20 118/56 L 96 08/26/18 07:58 78 16 98 08/26/18 04:00 98.0 F 76 19 116/56 L 96 08/26/18 00:34 79 18 98 08/26/18 00:00 97.3 F L 80 19 103/58 L 92 L Weight Weight 160 lb 9.6 oz I&O: 08/25/18 08/26/18 08/27/18 06:59 06:59 06:59 Intake Total 240 300 Output Total 550 150 Balance -310 150 Result Diagrams: 08/26/18 05:48 08/26/18 05:48 Phys Exam - Physical Examination HEENT: PERRLA, sclera anicteric Neck: no JVD, supple Respiratory: no wheezing, no rales rhonchi+ Cardiovascular: RRR, no significant murmur Gastrointestinal: soft, non-tender, positive bowel sounds Musculoskeletal: no edema, pulses present Neurological: non-focal, moves all 4 limbs Psychiatric: normal affect, A&O x 3 Dx/Plan (1) Dizziness Code(s): R42 - DIZZINESS AND GIDDINESS Status: Resolved (2) Diarrhea Code(s): R19.7 - DIARRHEA, UNSPECIFIED Status: Resolved (3) Hypotension Status: Resolved (4) COPD (chronic obstructive pulmonary disease) Status: Chronic Qualifiers: COPD type: chronic bronchitis (5) CKD (chronic kidney disease) Code(s): N18.9 - CHRONIC KIDNEY DISEASE, UNSPECIFIED Status: Chronic Qualifiers: Chronic kidney disease stage: stage 3 (moderate) Qualified Code(s): N18.3 - Chronic kidney disease, stage 3 (moderate) (6) Demand ischemia Code(s): I24.8 - OTHER FORMS OF ACUTE ISCHEMIC HEART DISEASE Status: Acute (7) CAD (coronary artery disease) Code(s): I25.10 - ATHSCL HEART DISEASE OF [place] CORONARY ARTERY W/O ANG PCTRS Status: Chronic Qualifiers: Coronary Disease-Associated Artery/Lesion type: [place] artery [place] vs. transplanted heart: [place] heart Associated angina: with stable angina Qualified Code(s): I25.118 - Atherosclerotic heart disease of [place] coronary artery with other forms of angina pectoris (8) H/O aortic aneurysm repair Code(s): Z98.890 - OTHER SPECIFIED POSTPROCEDURAL STATES; Z86.79 - PERSONAL HISTORY OF OTHER DISEASES OF THE CIRCULATORY SYSTEM Status: Chronic Comment : Previous aortic aneurysm repair by Dr. Don, h/o 6cm lower thoracic aortic aneurysm (9) Hypertension Code(s): I10 - ESSENTIAL (PRIMARY) HYPERTENSION Status: Chronic Qualifiers: Hypertension type: essential hypertension (10) Interstitial fibrosis Code(s): J84.10 - PULMONARY FIBROSIS, UNSPECIFIED Status: Chronic (11) Obstructive uropathy Code(s): N13.9 - OBSTRUCTIVE AND REFLUX UROPATHY, UNSPECIFIED Status: Chronic Comment: has right nephrostomy tube - Plan hemo/neurostable -: has ambulated with PT and rw -: is eating well (finished her breakfast tray) -: CM for help with dc plan -: continue current meds as below * . needs to taper and dc prednisone (did not fill this from previous dc 3 days back ) stool for c.diff is -ve Review of Systems - Medications/Allergies Allergies/Adverse Reactions: Allergies Allergy/AdvReac Type Severity Reaction Status Date / Time iodine Allergy Hives Verified 08/25/18 18:11 shellfish derived Allergy Nausea Verified 08/25/18 18:11 Sulfa (Sulfonamide Allergy Hives Verified 08/25/18 18:11 Antibiotics) Medications: Current Medications Acetaminophen (Tylenol) 650 mg PO Q4H PRN PRN Reason: Headache/Fever/Mild Pain (1-3) Albuterol/Ipratropium (Duoneb) 3 ml NEB [id number] [facility] Last Admin: 08/26/18 07:58 Dose: 3 ml Carvedilol (Coreg) 3.125 mg PO BID [facility] Last Admin: 08/26/18 08:55 Dose: 3.125 mg Doxycycline Hyclate (Vibramycin) 100 mg PO BID [facility] Last Admin: 08/26/18 08:55 Dose: 100 mg Enoxaparin Sodium (Lovenox) 30 mg SC 0900 [facility] Last Admin: 08/26/18 08:54 Dose: 30 mg Famotidine (Pepcid) 20 mg PO DAILY [facility] Last Admin: 08/26/18 08:55 Dose: 20 mg Gabapentin (Neurontin) 100 mg PO TID [facility] Last Admin: 08/26/18 08:56 Dose: 100 mg Guaifenesin (Mucinex) 600 mg PO Q12H [facility] Last Admin: 08/26/18 05:05 Dose: 600 mg Guaifenesin/Dextromethorphan (Robitussin Dm) 15 ml PO Q4H PRN PRN Reason: Cough Megestrol Acetate (Megace) 400 mg PO BID [facility] Last Admin: 08/26/18 08:55 Dose: 400 mg Prednisone (Prednisone) 10 mg PO QAM-WM [facility] Last Admin: 08/26/18 08:55 Dose: 10 mg Ranolazine (Ranexa) 500 mg PO BID [facility] Last Admin: 08/26/18 08:56 Dose: 500 mg
[2018-08-26 12:10] VITALS: BP 125/60; TEMP 98.2
[2018-08-26 12:47] VITALS: BMI 23.7
--- NOTE | 2018-08-26 14:10 | DIS ---
DATE OF ADMISSION: 08/25/2018 DATE OF DISCHARGE: 08/26/2018 DISCHARGE DISPOSITION: Home with home health. PRIMARY DISCHARGE DIAGNOSIS: Dizziness, diarrhea, and hypotension, all of which is resolved. SECONDARY DISCHARGE DIAGNOSES: 1. Chronic obstructive pulmonary disease. 2. Chronic kidney disease, stage 3. 3. Demand ischemia. 4. Coronary artery disease. 5. History of prior abdominal aortic aneurysm repair. 6. Hypertension. 7. History of chronic interstitial lung disease. 8. Obstructive uropathy with right nephrostomy tube. PROCEDURES DONE DURING HOSPITALIZATION: Chest x-ray done showed no acute findings when compared to prior x-rays. Blood cultures x2, no growth. Stool for C. diff was negative. H and H 10 and 34, platelet count 180, white count of 11 on the day of discharge. Discharge BUN and creatinine are 63 and 2.0. Troponin I 0.04. CK- MB 1.5. Albumin is 3.4. DISCHARGE MEDICATIONS: 1. Mucinex 600 mg p.o. twice daily. 2. DuoNeb q.6 hourly p.r.n. 3. Megace 400 mg p.o. twice daily. 4. Potassium chloride 20 mEq p.o. daily. 5. Ranexa 500 mg p.o. twice daily. 6. Coreg 3.125 mg twice daily. 7. Doxycycline 100 mg p.o. twice daily for another six days. 8. Lasix 40 mg p.o. daily. 9. Gabapentin 100 mg p.o. three times daily. 10. Prednisone 10 mg p.o. daily for another six days. ALLERGIES: IODINE, SHELLFISH, AND SULFA. DISCHARGE PLAN: The patient to follow up with primary care physician in one week. BRIEF COURSE DURING HOSPITALIZATION: The patient initially was brought to emergency room by EMS after she had 2-3 episodes of diarrheal episodes at home and was feeling weak. On arrival, patient was found to be hypotensive. She was given a liter of fluid, which promptly brought her systolic blood pressures up to 124. The patient was discharged recently and had not filled prescription for prednisone. The patient was on broad-spectrum antibiotic during her recent hospitalization. Stool for C. diff was obtained, which was negative. She has had two formed stools after hospitalization. The patient had expressed not to be placed anywhere but home and during her last discharge and is adamant about it this time as well. Her family is concerned about taking care of her but the patient is fully oriented and wants to go home. Case management consultation with Ms. Coello was requested. She is ambulated with a rolling walker with Physical Therapy on the floor here. They have recommended home health with PT as well. In view of the patient's desire and PT recommendation, she is being discharged home with home health. She is otherwise hemodynamically stable and back to her baseline. She needs to follow up with her primary care physician in one week. She has been counseled with regard to medication compliance and fill all her prescriptions. Please see a [id number] documentation for the day of discharge on [place]. Job ID: [id number] MTDD
== END 2018-08-26 13:47 | disposition home health service (06) ==
LOC: ERS 11:50 → ERHOLD 14:44 → 2SE 17:03
PROVIDERS: ADMIT Internal Medicine; ATTEND Internal Medicine
DX: I95.9 Hypotension, unspecified (principal); R19.7 Diarrhea, unspecified; R42 Dizziness and giddiness; J44.9 Chronic obstructive pulmonary disease, unspecified; I12.9 Hypertensive chronic kidney disease with stage 1 through stage 4 chronic kidney disease, or unspecified chronic kidney disease; N18.3 Chronic kidney disease, stage 3 (moderate); I25.10 Atherosclerotic heart disease of native coronary artery without angina pectoris; J84.10 Pulmonary fibrosis, unspecified; N13.9 Obstructive and reflux uropathy, unspecified; I24.8 Other forms of acute ischemic heart disease; I10 Essential (primary) hypertension; Z99.81 Dependence on supplemental oxygen; Z90.2 Acquired absence of lung [part of]; Z85.3 Personal history of malignant neoplasm of breast; Z87.891 Personal history of nicotine dependence; Z91.013 Allergy to seafood; Z88.2 Allergy status to sulfonamides; Z91.09 Other allergy status, other than to drugs and biological substances; Z79.2 Long term (current) use of antibiotics; Z79.52 Long term (current) use of systemic steroids; Z79.899 Other long term (current) drug therapy
CPT/HCPCS: 71045; 80048; 80053; 82550; 82553; 83690; 84484; 85025 ×2; 87040; 87077; 87086; 87184; 87186; 87324; 87449; 93005; 94640 ×2; 96365; 96372; 96375; 97116; 97139; 99285; G0378 ×2; 36415; 81003; 81015; J0696; J1650; J1720; J7512; J7620

== ENCOUNTER 2018-10-18 07:18 | Day surgery (SDC) | payer MEDICARE, OTHER ==
[2018-10-18 07:34] LABS: #Lymphocytes 1.1 thou/uL (1.20-3.40); #Neutrophils 6.4 thou/uL (1.40-6.50); %Basophils 0.2 % (0.0-1.0); %Eosinophils 0.4 % (0.0-10.0); %Lymphocytes 13.9 % (21.0-51.0); %Monocytes 0.3 % (0.0-10.0); %Neutrophils 85.1 % (42.0-75.0); Hemoglobin 12.6 g/dL (12.0-16.0); Mean Corpuscular Hemoglobin 26.6 pg (27.0-31.0); Mean Corpuscular Volume 85.7 fL (78.0-98.0); Mean Platelet Volume 8.6 fL (7.4-10.4); Platelet Count 308 thou/uL (130-400); RBC Distribution Width 14.4 % (11.5-14.5); Red Blood Cell (RBC) Count 4.73 mill/uL (4.20-5.40); White Blood Cell (WBC) Count 7.5 thou/uL (4.8-10.8)
[2018-10-18] MEDS ORDERED: Vancomycin HCl 1 GM in Premix Bag 1 BAG IVPB SCH (07:45)
[2018-10-18] MEDS ORDERED: cefTRIAXone\\ROCEPHIN 2 GM in Sodium Chloride 0.9% 100 ML IVPB SCH (07:45)
[2018-10-18 07:51] LABS: Anion Gap 20 mmol/L (10-20); BUN (Urea Nitrogen) 36 mg/dL (9.8-20.1); Calc. Creatinine Clearance 0 mL/min (70-130); Calcium 9.5 mg/dL (7.8-10.44); Carbon Dioxide 26 mmol/L (23-31); Chloride 95 mmol/L (98-107); Estimated GFR-MDRD 17; Glucose 158 mg/dL (83-110); Potassium 4.5 mmol/L (3.5-5.1); Sodium 136 mmol/L (136-145)
[2018-10-18] MEDS ORDERED: Fentanyl 100 MCG/2 ML VIAL ONE (09:30)
[2018-10-18] MEDS ORDERED: Ioversol 68 % 50 ML VIAL ONE (09:52)
--- NOTE | 2018-10-18 10:00 | SPC ---
FFluoroscopic-guided right percutaneous nephrostomy exchange HISTORY: Right renal stones. 2 ureteral obstruction. FINDINGS: After explaining the procedure and answering all questions, the external portion of the rig ht percutaneous nephrostomy catheter were cleaned and draped in the usual sterile fashion. Sterile te chnique was used to carefully advance a 0.035 Bentson wire through the indwelling 10 Salvadorean percutane ous nephrostomy catheter to hold position. Contrast opacification shows the system to be decompressed . The old 10 [place] catheter was removed and replaced with a new 12 [place] locking loop catheter. Loop was placed in the decompressed renal pelvis. Secured externally with 0 silk suture. Patient tolerated the procedure well and was eventually transferred to day surgery in good condition. Fluoroscopy time 1.1 minutes. FINDINGS: Technically successful fluoroscopic-guided right percutaneous nephrostomy exchange.
[2018-10-18] MEDS ORDERED: PROPOFOL 200 MG/20 ML VIAL ONE (15:19)
[2018-10-18] MEDS ORDERED: PHENYLEPHRINE-NS 100 MCG/ML 10 ML SYRINGE ONE (15:19)
--- NOTE | 2018-10-19 15:38 | SPC ---
"PRELIMINARY REPORT" Fluoroscopic-guided right percutaneous nephrostomy exchange HISTORY: Right renal stones. 2 ureteral obstruction. FINDINGS: After explaining the procedure and answering all questions, the external portion of the rig ht percutaneous nephrostomy catheter were cleaned and draped in the usual sterile fashion. Sterile te chnique was used to carefully advance a 0.035 Bentson wire through the indwelling 10 [place] percutane ous nephrostomy catheter to hold position. Contrast opacification shows the system to be decompressed . The old 10 [place] catheter was removed and replaced with a new 12 [place] locking loop catheter. Loop was placed in the decompressed renal pelvis. Secured externally with 0 silk suture. Patient tolerated the procedure well and was eventually transferred to day surgery in good condition. Fluoroscopy time 1.1 minutes. FINDINGS: Technically successful fluoroscopic-guided right percutaneous nephrostomy exchange. Transcribed Date/Time: 10/19/2018 3:38 PM
== END 2018-10-18 13:20 | disposition home or self-care (01) ==
LOC: SPEC 07:18
PROVIDERS: ATTEND Radiology Diagnostic Radiology
PROC: 0T25X0Z Change Drainage Device in Kidney, External Approach (ICD-10-PCS; principal; 2018-10-18)
DX: Z43.6 Encounter for attention to other artificial openings of urinary tract (principal); N13.5 Crossing vessel and stricture of ureter without hydronephrosis; N20.1 Calculus of ureter; J44.9 Chronic obstructive pulmonary disease, unspecified; F41.9 Anxiety disorder, unspecified; F32.9 Major depressive disorder, single episode, unspecified; I73.9 Peripheral vascular disease, unspecified; N18.9 Chronic kidney disease, unspecified; G43.909 Migraine, unspecified, not intractable, without status migrainosus; J84.10 Pulmonary fibrosis, unspecified; M19.90 Unspecified osteoarthritis, unspecified site; Z85.3 Personal history of malignant neoplasm of breast; Z92.3 Personal history of irradiation; Z92.21 Personal history of antineoplastic chemotherapy; Z88.2 Allergy status to sulfonamides; Z91.013 Allergy to seafood; Z91.09 Other allergy status, other than to drugs and biological substances; Z79.899 Other long term (current) drug therapy; Z98.890 Other specified postprocedural states
CPT/HCPCS: 50431; 50435; 74420; 75984; 80048; 85025; 85610; 85730; C1729; C1758; J0696; J3010; J3370; J7050; Q9967

== ENCOUNTER 2018-11-03 09:25 | Emergency (ER) | payer MEDICARE, OTHER ==
[2018-11-03] MEDS ORDERED: Albuterol Sulfate 2.5 mg/0.5 ml Neb ONE (09:49)
[2018-11-03] MEDS ORDERED: Albuterol Sulfate 2.5 mg/3 ml Neb ONE (09:49)
--- NOTE | 2018-11-03 10:27 | RAD ---
EXAM: CHEST ONE VIEW HISTORY: Cough COMPARISON: 08/25/2018 FINDINGS: The cardiac silhouette is magnified by projection but does appear enlarged. The pulmonary vasculature is within normal limits. Again noted are increased interstitial densities bilaterally greater at each lung base and in the mid lung zones likely due to chronic interstitial fibrotic lung changes. No new area of consolidation or pleural fluid is seen. The osseous structures are intact. Vascular calcifications are seen in an ectatic thoracic aorta. There is stable prominence of the pulmonary art juan manuel segments bilaterally which could be on the basis of pulmonary artery hypertension. IMPRESSION: 1. Findings most suggestive of chronic interstitial lung changes. No acute cardiopulmonary process is identified. 2. Stable prominence of the pulmonary artery segments in each hilar region which is nonspecific but c ould be attributable to an element of pulmonary artery hypertension.
[2018-11-03 10:32] LABS: #Basophils 0.1 thou/uL (0.0-0.2); #Eosinphils 0.3 thou/uL (0.0-0.7); #Lymphocytes 2.4 thou/uL (1.20-3.40); #Monocytes 0.3 thou/uL (0.11-0.59); #Neutrophils 5.9 thou/uL (1.40-6.50); %Basophils 0.7 % (0.0-1.0); %Eosinophils 3.1 % (0.0-10.0); %Lymphocytes 26.9 % (21.0-51.0); %Monocytes 2.8 % (0.0-10.0); %Neutrophils 66.4 % (42.0-75.0); Hemoglobin 11.5 g/dL (12.0-16.0); Mean Corpuscular HGB CONC 30.1 g/dL (32.0-36.0); Mean Corpuscular Volume 86.5 fL (78.0-98.0); Mean Platelet Volume 8.1 fL (7.4-10.4); Platelet Count 249 thou/uL (130-400); RBC Distribution Width 14.9 % (11.5-14.5); Red Blood Cell (RBC) Count 4.42 mill/uL (4.20-5.40); White Blood Cell (WBC) Count 8.9 thou/uL (4.8-10.8)
[2018-11-03 10:59] LABS: ALT (SGPT) Less than 7 U/L (8-55); AST (SGOT) 12 U/L (5-34); Albumin 3.5 g/dL (3.4-4.8); Alkaline Phosphatase 114 U/L (40-150); Anion Gap 12 mmol/L (10-20); BUN (Urea Nitrogen) 23 mg/dL (9.8-20.1); Bilirubin, Total 0.4 mg/dL (0.2-1.2); Calc. Creatinine Clearance 0 mL/min (70-130); Calcium 9.1 mg/dL (7.8-10.44); Carbon Dioxide 26 mmol/L (23-31); Chloride 105 mmol/L (98-107); Estimated GFR-MDRD 26; Globulin 3.2 g/dL (2.4-3.5); Glucose 96 mg/dL (83-110); Potassium 4.5 mmol/L (3.5-5.1); Protein, Total 6.7 g/dL (6.0-8.3); Sodium 138 mmol/L (136-145)
[2018-11-03] MEDS ORDERED: Furosemide 40 MG/4 ML VIAL ONE (11:22)
== END 2018-11-03 12:14 | disposition home or self-care (01) ==
LOC: ERS 09:25
DX: J44.1 Chronic obstructive pulmonary disease with (acute) exacerbation (principal); I50.9 Heart failure, unspecified; Z87.891 Personal history of nicotine dependence; Z79.899 Other long term (current) drug therapy; Z79.51 Long term (current) use of inhaled steroids
CPT/HCPCS: 36415; 71045; 80053; 83880; 85025; 93005; 94640; 94760; 96374; J1940; J7611

== ENCOUNTER 2018-11-16 08:14 | Inpatient (IN) | payer MEDICARE, OTHER ==
--- NOTE | 2018-11-16 08:42 | RAD ---
Chest AP view INDICATION: Productive cough COMPARISON: November 03, 2018 FINDINGS: Lungs:There is worsening airspace opacity within the left lower lobe suspicious for pneumonia. This i s superimposed on severe COPD change. Cardiac silhouette pulmonary vasculature:The heart size remains moderately prominent. The pulmonary v asculature appears mildly prominent but stable. Pleural spaces:There is a small suspected left-sided pleural effusion. No pneumothorax is demonstrate d. Upper abdomen:No abnormality seen. Osseous structures: No acute osseous abnormality. There is scattered degenerative and osteoarthritic change present. IMPRESSION: Findings suspicious for left lower lobe pneumonia with a small left parapneumonic effusio n. Recommend radiographic follow-up to resolution. Severe emphysema is stable. Moderate cardiomegaly and mild vascular congestion is stable.
[2018-11-16 09:00] LABS: Mean Corpuscular HGB CONC 30.3 g/dL (32.0-36.0); Mean Corpuscular Hemoglobin 26.4 pg (27.0-31.0); Mean Corpuscular Volume 87.2 fL (78.0-98.0); Mean Platelet Volume 8.1 fL (7.4-10.4); Platelet Count 335 thou/uL (130-400); Red Blood Cell (RBC) Count 4.55 mill/uL (4.20-5.40); White Blood Cell (WBC) Count 24.2 thou/uL (4.8-10.8)
[2018-11-16 09:18] LABS: ALT (SGPT) 17 U/L (8-55); AST (SGOT) 14 U/L (5-34); Albumin 3.5 g/dL (3.4-4.8); Alkaline Phosphatase 78 U/L (40-150); Anion Gap 12 mmol/L (10-20); BUN (Urea Nitrogen) 55 mg/dL (9.8-20.1); Bilirubin, Total 0.5 mg/dL (0.2-1.2); CK (CPK) 14 U/L (29-168); Calc. Creatinine Clearance 0 mL/min (70-130); Calcium 9.3 mg/dL (7.8-10.44); Carbon Dioxide 31 mmol/L (23-31); Chloride 97 mmol/L (98-107); Estimated GFR-MDRD 24; Globulin 2.8 g/dL (2.4-3.5); Glucose 93 mg/dL (83-110); Potassium 5.5 mmol/L (3.5-5.1); Protein, Total 6.3 g/dL (6.0-8.3); Sodium 134 mmol/L (136-145)
[2018-11-16 09:37] LABS: Band 6 % (5-11); Eosinophils 1 % (0-10); Lymphocytes 11 % (21-51); MDiff Complete? YES; Metamyelocyte 1 % (0-0); Monocytes 2 % (0-10); Neutrophil 77 % (42-75); Platelet Morphology Comment Appears Adequate; Polychromasia SLIGHT = 2-3 cells (100X) (0-2/hpf); Reactive Lymphocytes 2 % (0-10)
[2018-11-16 09:40] LABS: CKMB 2.7 ng/mL (0-6.6)
[2018-11-16] MEDS ORDERED: Piperacillin/Tazobactam 4.5 GM VIAL ONE (10:11)
[2018-11-16] MEDS ORDERED: Aspirin Chewable 81 MG TAB ONE (10:11)
--- NOTE | 2018-11-16 11:25 | HP ---
PRIMARY CARE PROVIDER: Dr. Noni Alston at [facility]. CHIEF COMPLAINT: Shortness of breath and weakness. HISTORY OF PRESENT ILLNESS: This is an 83-year-old female, who presents to [facility] Emergency Department complaining of 1 to 2-day history of increased shortness of breath, left-sided chest pain, and recent admission to [facility] in [place], [place] for approximately 3 days for suspected pneumonia and COPD exacerbation. The patient states she was treated with antibiotic therapy at [facility] and released home within the last 24 to 48 hours. The patient states she continued to have increased cough, congestion, and left-sided chest pain, becoming concerned due to her progressive symptoms. The patient states she uses chronic oxygen at previous levels of 3 L/minute by nasal cannula, recently increased to 4 L/minute after receiving a new concentrator at home. The patient's history is significant for longstanding chronic obstructive pulmonary disease as well as chronic interstitial lung disease and chronic hypoxic respiratory failure. The patient denied any documented fever, but states she has felt weak with decreased energy and appetite. The patient admits to productive cough and difficulty breathing. The patient states she is unable to live independently and receives assistance from her granddaughter, who assists her with transfers to wheelchair for mobilization. The patient states she is being set up for home health services, which has not started as of this date. In the emergency room, the patient underwent general evaluation including chest imaging showing a left lower lobe infiltrate concerning for pneumonia with parapneumonic effusion. The patient was also noted with a leukocytosis with left shift and concern for sepsis secondary to pneumonia. The patient received IV vancomycin and Zosyn as well as bronchodilator therapy with DuoNebs, enteric-coated aspirin, and intravenous normal saline x1 L. PAST MEDICAL HISTORY: 1. Chronic obstructive pulmonary disease. 2. Chronic hypoxic respiratory failure on 4 L/minute by nasal cannula continuously. 3. Chronic kidney disease stage 3. 4. Coronary artery disease. 5. Severe deconditioning. 6. Abdominal aortic aneurysm status post repair. 7. Hypertension. 8. Chronic interstitial lung disease. 9. Obstructive uropathy with right nephrostomy tube exchange on 10/2018. 10. History of breast cancer with radiation and surgical intervention. 11. Ischemic cardiomyopathy with ejection fraction 30% to 35%. PAST SURGICAL HISTORY: 1. Status post mastectomy. 2. Status post abdominal aortic aneurysm. 3. Status post pulmonary lobectomy. 4. Status post hernia repair. 5. Status post right nephrostomy tube exchanges. CURRENT MEDICATIONS: Based on recent admission in August 2018; 1. ProAir HFA 2 puffs inhaled q.4 hours p.r.n. 2. DuoNeb 3 mL nebulized q.4 hours p.r.n. 3. Symbicort 160/4.5 two puffs inhaled b.i.d. 4. Vitamin B complex 1 tablet p.o. daily. 5. Coreg 3.125 mg p.o. b.i.d. 6. Lasix 40 mg p.o. daily. 7. Neurontin 100 mg p.o. t.i.d. ALLERGIES: TO IODINE AND SULFA. FAMILY HISTORY: No inheritable diseases per the patient report. SOCIAL HISTORY: Remote tobacco use more than 10 years prior to this evaluation. No alcohol or illicit drug use. Receives primary care from her granddaughter. Mobilizes with a wheelchair with contact guard assistance for short distance ambulation with rolling walker. History of falls. REVIEW OF SYSTEMS: CONSTITUTIONAL: Negative for weight loss or gain, ability to conduct usual activities. SKIN: Negative for rash, itching. EYES: Negative for double vision, pain. ENT/MOUTH: Negative for nose bleeding, neck stiffness, pain, tenderness. CARDIOVASCULAR: Negative for palpitations, dyspnea on exertion, orthopnea. RESPIRATORY: Negative for shortness of breath, wheezing, cough, hemoptysis, fever or night sweats. GASTROINTESTINAL: Negative for poor appetite, abdominal pain, heartburn, nausea, vomiting, constipation, or diarrhea. GENITOURINARY: Negative for urgency, frequency, dysuria, nocturia. MUSCULOSKELETAL: Negative for pain, swelling. NEUROLOGIC/PSYCHIATRIC: Negative for anxiety, depression. ALLERGY/IMMUNOLOGIC: Negative for skin rash, bleeding tendency. Otherwise, negative except as stated per HPI. PHYSICAL EXAMINATION: VITAL SIGNS: On admission; blood pressure 124/61, pulse 78, respiratory rate 32, temperature 98.4 degrees Fahrenheit, and O2 saturation 94% on 4 L/minute by nasal cannula. GENERAL APPEARANCE: This is an 83-year-old female, ill appearing, frail, alert and responds to questions. HEENT: Pupils are equal, round, and reactive to light and accommodation. Extraocular muscles are intact. No scleral icterus. No conjunctival injection. Nares patent. OP is clear. Nasal cannula in place. NECK: Supple. No cervical adenopathy. No thyromegaly. No carotid bruits. No JVD appreciated. Cervical spine with full active and passive range of motion. No meningeal signs noted. CHEST: Diminished breath sounds in the left greater than right lung maurice. Coarse breath sounds bilaterally with scattered expiratory wheeze. CARDIOVASCULAR: S1 and S2 without noted murmur, rub, or gallop. ABDOMEN: Rounded, soft, nontender, and nondistended. Bowel sounds are positive in all 4 quadrants. No hepatosplenomegaly. No abdominal bruits. No rebound or guarding appreciated. EXTREMITIES: Left upper extremity with shoulder brace and immobilizer in place. Pulses are palpable distally at the distal radial artery of the left upper extremity. No edema noted. Bilateral lower extremities without evidence of asymmetric edema. Pulses are palpable distally at the dorsalis pedis, posterior tibial, and popliteal arteries bilaterally. Capillary refill less than 2 seconds. NEUROLOGIC: Cranial nerves 2 through 12 are grossly intact. Not observed ambulatory during this exam. No gross unilateral focal deficits. PERTINENT LAB AND X-RAY FINDINGS: Sodium 134, potassium 5.5, chloride 97, CO2 of 31, BUN 55, creatinine 1.95, estimated GFR 24, glucose 93, and calcium 9.3. LFTs within normal limits. Troponin I 0.069. Albumin 3.5. CBC showed a white blood cell count of 24.2, hemoglobin 12, hematocrit 40, and platelet count 335 with 77% neutrophils. Portable chest x-ray dated 11/16/2018 showed left lower lobe pneumonia with left parapneumonic effusion. Severe emphysematous changes bilaterally. EKG dated 11/16/2018 by my interpretation shows a sinus mechanism with heart rates in the 80s. Premature ventricular complexes noted. Left axis deviation. No acute ST-T wave changes appreciated. ASSESSMENT AND PLAN: 1. Sepsis secondarily to pneumonia. The patient will be admitted to the telemetry unit. We will continue vancomycin 1 g IV q.24 hours with additional Zosyn 2.25 g IV q.6 hours. Likely with healthcare associated pneumonia with recent hospitalization in the last seven days. We will continue general sepsis protocol. The patient received appropriate fluid resuscitation in the Emergency Department. Continue serial lactic acid monitoring. Continue intravenous normal saline at 75 mL/h. 2. Healthcare associated pneumonia. Suspected given left lower lobe infiltrate and recent hospitalization. Continue IV antibiotics as described previously in #1. Add DuoNeb 3 mL q.4 hours. We will consult Pulmonology/Critical Care Service for further evaluation. Continue oxygen supplementation to maintain O2 saturations greater than equal to 88%. Add Solu-Medrol 40 mg IV q.6 hours. 3. Acute kidney injury on chronic kidney disease stage 3 to 4. We will continue IV fluids as outlined previously and avoid nephrotoxic agents and limit contrast exposure. Serial creatinine monitoring. 4. Chronic hypoxic respiratory failure. Secondarily to chronic obstructive pulmonary disease and chronic interstitial lung disease. We will continue oxygen supplementation at 4 L/minute by nasal cannula. See #1 and #2 above. Continue Symbicort. Consult Pulmonary/Critical Care Service for evaluation. Consider Palliative Care and Hospice evaluation. 5. Severe deconditioning. Physical Therapy/Occupational Therapy evaluation for functional assessment. General fall risk precautions. 6. Prophylaxis. Sequential compression devices while in bed. Pepcid 20 mg p.o. b.i.d. Palliative Care consult. 7. Code status is do not attempt resuscitation confirmed with the patient. Surrogate medical decision maker is the patient's daughter. Job ID: [id number]
[2018-11-16] MEDS ORDERED: Benzonatate 100 MG CAP PO PRN (12:21)
[2018-11-16] MEDS ORDERED: Ondansetron PF 4 MG/2 ML Vial IVP PRN (12:21)
[2018-11-16] MEDS ORDERED: Guaifenesin DM 100-10/5 ML UDCUP PO PRN (12:21)
[2018-11-16] MEDS ORDERED: Ondansetron ODT 4 MG TAB PO PRN (12:21)
[2018-11-16] MEDS ORDERED: hydrALAZINE 20 MG/ML VIAL SLOW IVP PRN (12:21)
[2018-11-16 13:19] LABS: Troponin I Less than 0.010 ng/mL (< 0.028)
[2018-11-16 15:20] VITALS: BMI 22.7
[2018-11-16] MEDS: Sodium Chloride 0.9% 1,000 ML IV SCH (15:32)
[2018-11-16] MEDS: Gabapentin 100 MG CAP PO SCH ×2 (15:32→21:11)
[2018-11-16] MEDS: methylPREDNISolone Sod Succ 40 MG VIAL IVP SCH ×2 (15:34→21:10)
[2018-11-16 16:34] LABS: Troponin I 0.056 ng/mL (< 0.028)
[2018-11-16] MEDS: Piperacillin/Tazobactam 2.25 GM in Sodium Chloride 0.9% 100 ML IVPB SCH (18:53)
[2018-11-16] MEDS: Mometasone/Formoterol 120 PUFF INHALER INH SCH (19:10)
[2018-11-16] MEDS ORDERED: Non-Formulary Item 1 EACH (Symbicort 2 PUFF) INH SCH (21:00)
[2018-11-16] MEDS ORDERED: Famotidine 20 MG TAB PO SCH (21:00)
[2018-11-16] MEDS: guaiFENesin ER 600 MG TAB PO SCH (21:10)
[2018-11-16] MEDS: Carvedilol 3.125 MG TAB PO SCH (21:11)
--- NOTE | 2018-11-16 23:17 | CON ---
DATE OF CONSULTATION: 11/16/2018 CONSULTING PHYSICIAN: Dr. Guzman from the Hospitalist group. REASON FOR CONSULTATION: COPD exacerbation. HISTORY OF PRESENT ILLNESS: The patient is an 83-year-old female who is a patient of my partner, Dr. Moralez. She was hospitalized at [facility] until 3 days ago when she got discharged. She was there for COPD exacerbation. She went home on steroids and antibiotics. This morning, she felt midsternal crushing chest pain and subsequent came here for further therapy. It does not sound like the chest pain lasted very long and she does not know what she took to make it better. She says her baseline cough is unchanged from previous. PAST MEDICAL HISTORY: 1. Severe chronic obstructive pulmonary disease. 2. DNR status. 3. Chronic hypoxic respiratory failure, requiring home oxygen at 4 L nasal cannula. 4. Chronic kidney disease stage 3. 5. Coronary artery disease, treated medically. 6. Severe deconditioning. 7. Peripheral vascular disease. 8. Hypertension. 9. Chronic interstitial lung disease. 10. Obstructive uropathy with right nephrostomy tube exchange in 10/2018. 11. History of breast cancer requiring radiation and surgical treatment. 12. Ischemic heart cardiomyopathy with EF 30-35 percent. 13. Mastectomy. 14. Abdominal aortic aneurysm repair. 15. Lobectomy. 16. Hernia repair. MEDICATIONS: Prior to admission: 1. ProAir. 2. DuoNeb. 3. Symbicort. 4. Vitamin B complex. 5. Coreg. 6. Lasix. 7. Neurontin. ALLERGIES: IODINE AND SULFA DRUGS. FAMILY MEDICAL HISTORY: Unremarkable. SOCIAL HISTORY: Quit smoking several months ago. Does not consume alcohol. Does not use illicit drugs. REVIEW OF SYSTEMS: She has had no weight gain or weight loss. No rashes or bruising. No eyesight changes. No difference in her hearing. She has had no palpitations, no orthopnea, no PND. She does have a cough with productive white sputum. No hemoptysis. She has had no nausea, vomiting, hematemesis, melena, hematochezia, or dysuria. Remainder of 12-point review of systems negative. PHYSICAL EXAMINATION: VITAL SIGNS: Temperature 97.9, pulse 63, respirations 16, O2 saturation 99% on 3 L, and blood pressure 119/56. GENERAL: She is awake, alert, and in no acute distress. She appears older than her stated age. HEENT: Pupils reactive. Sclerae icteric. Oropharynx clear. NECK: No adenopathy or JVD. LUNGS: Clear, but distant breath sounds. CARDIAC: S1-S2 regular without audible murmur. ABDOMEN: Soft, nontender, and nondistended. EXTREMITIES: No clubbing, cyanosis or edema. NEUROLOGIC: Grossly intact throughout. LABORATORY DATA: White blood cell count 24.2, hematocrit 39.7, and platelet count 335 with 77% neutrophils, 6% bands. Sodium 134, potassium 5.5, chloride 97, CO2 of 31, BUN 55, creatinine 1.9, glucose 93. IMAGING: Her chest x-ray shows cardiomegaly, question of infiltrate versus small effusion in the left lower lobe. ASSESSMENT: 1. Question left lower lobe pneumonia. 2. Chronic obstructive pulmonary disease exacerbation. 3. Chest pain, cardiogenic versus noncardiogenic. 4. Chronic hypoxemic respiratory failure. PLAN: Agree with the current prescribed treatment including the antibiotics. Schedule nebulization treatment, IV fluids, and IV steroids. I will inform Dr. Moralez of the patient's hospitalization. Job ID: [id number]
[2018-11-17] MEDS: methylPREDNISolone Sod Succ 40 MG VIAL IVP SCH ×4 (01:01→20:37)
[2018-11-17] MEDS: Piperacillin/Tazobactam 2.25 GM in Sodium Chloride 0.9% 100 ML IVPB SCH ×4 (01:01→17:29)
[2018-11-17] MEDS: Sodium Chloride 0.9% 1,000 ML IV SCH ×2 (01:01→17:30)
[2018-11-17] MEDS: Mometasone/Formoterol 120 PUFF INHALER INH SCH ×2 (07:00→18:59)
[2018-11-17 07:29] LABS: Hemoglobin 11.9 g/dL (12.0-16.0); Mean Corpuscular HGB CONC 31.5 g/dL (32.0-36.0); Mean Corpuscular Hemoglobin 27.3 pg (27.0-31.0); Mean Corpuscular Volume 86.5 fL (78.0-98.0); Mean Platelet Volume 8.3 fL (7.4-10.4); Platelet Count 254 thou/uL (130-400); Red Blood Cell (RBC) Count 4.37 mill/uL (4.20-5.40); White Blood Cell (WBC) Count 15.5 thou/uL (4.8-10.8)
[2018-11-17 07:41] LABS: Anion Gap 13 mmol/L (10-20); BUN (Urea Nitrogen) 47 mg/dL (9.8-20.1); Calc. Creatinine Clearance 25 mL/min (70-130); Calcium 8.6 mg/dL (7.8-10.44); Carbon Dioxide 25 mmol/L (23-31); Chloride 103 mmol/L (98-107); Estimated GFR-MDRD 28; Glucose 141 mg/dL (83-110); Potassium 5.3 mmol/L (3.5-5.1); Sodium 136 mmol/L (136-145)
[2018-11-17] MEDS ORDERED: Sodium Chloride 0.9% 10 ML ONE ×2 (08:02→14:34)
[2018-11-17 08:20] LABS: Band 5 % (5-11); Hypersemented Neutrophil SLIGHT; Lymphocytes 10 % (21-51); MDiff Complete? YES; Myelocyte 1 % (0-0); Neutrophil 83 % (42-75); Platelet Morphology Comment Appears Adequate; Polychromasia SLIGHT = 2-3 cells (100X) (0-2/hpf); Reactive Lymphocytes 1 % (0-10)
[2018-11-17] MEDS: Gabapentin 100 MG CAP PO SCH ×3 (08:21→20:37)
[2018-11-17] MEDS: Stress 600 With Zinc 1 TAB PO SCH (08:21)
[2018-11-17] MEDS: guaiFENesin ER 600 MG TAB PO SCH ×2 (08:21→20:38)
[2018-11-17] MEDS: Carvedilol 3.125 MG TAB PO SCH ×2 (08:21→20:38)
[2018-11-17] MEDS ORDERED: Non-Formulary Item 1 EACH (Vit B Comp/C/Folic/Iron/Vit E [Vitamin B Complex Tablet] 1 TAB PO SCH (09:00)
--- NOTE | 2018-11-17 09:19 | PRG ---
DATE OF SERVICE: 11/17/2018 SUBJECTIVE: Charo Branham was admitted yesterday with worsening shortness of breath, cough, but no fever or chills. A chest x-ray may show a small retrocardiac density, though I doubt this is significantly new. This morning, she says she is feeling better. OBJECTIVE: VITAL SIGNS: Saturations are 95% on 2 L, pulse was 70, blood pressure 130/80, and respiratory rate 20. CHEST: Reveals minimal bilateral rhonchi and crackles. CARDIAC: Normal S1 and S2. No gallops. ABDOMEN: No masses. LABORATORY DATA: Labs show white count 15,000, H and H of 11 and 37, and platelet count is normal. BUN and creatinine elevated at 47 and 1.72. IMPRESSION: 1. Chronic obstructive pulmonary disease. 2. Congestive heart failure. 3. Advanced age. 4. Questionable left-sided pneumonia. 5. Multiple medical problems. PLAN: She is presently on steroids, antibiotics. We will deescalate once we get all cultures back. We will follow. Job ID: [id number]
--- NOTE | 2018-11-17 11:49 | PDOC.PN ---
- Subjective Encounter Start Date: 11/17/18 Encounter Start Time: 11:47 Ms. Branham was seen today in follow-up of acute respiratory failure due to pneumonia. She says she feels a little better, but is still coughing up greenish phlem. She is still short of breath. - Objective Resuscitation Status - Order Detail: 11/16/18 18:05 Resuscitation Status Routine Resuscitation Status: FULL: Full Resuscitation MAR Reviewed: Yes Vital Signs & Weight: Vital Signs (12 hours) Temp Pulse Resp BP Pulse Ox 11/17/18 10:50 73 16 98 11/17/18 07:29 97.8 F 76 20 144/67 H 97 11/17/18 07:03 96 11/17/18 07:02 72 16 95 11/17/18 07:00 74 16 98 11/17/18 03:45 97.7 F 71 21 H 136/72 96 11/17/18 02:10 72 18 88 L 11/17/18 00:18 75 18 88 L Weight Weight 148 lb 1.6 oz I&O: 11/16/18 11/17/18 11/18/18 06:59 06:59 06:59 Intake Total 240 Output Total 600 Balance -360 Result Diagrams: 11/17/18 06:47 11/17/18 06:47 Phys Exam - Physical Examination HEENT: PERRLA Respiratory: wheezing present + fairly tight wheezing bilaterally, and some rhonchi Cardiovascular: RRR, no significant murmur, no rub Gastrointestinal: soft, non-tender, no distention, positive bowel sounds Musculoskeletal: pulses present, edema present trace pedal edema bilaterally Neurological: non-focal Dx/Plan (1) Healthcare-associated pneumonia Code(s): J18.9 - PNEUMONIA, UNSPECIFIED ORGANISM Status: Acute (2) Acute and chronic respiratory failure with hypoxia Code(s): J96.21 - ACUTE AND CHRONIC RESPIRATORY FAILURE WITH HYPOXIA Status: Acute (3) COPD exacerbation Code(s): J44.1 - CHRONIC OBSTRUCTIVE PULMONARY DISEASE W (ACUTE) EXACERBATION Status: Acute Comment: On Zosyn, steroids, nebs from ER on 08/15/18. No significant pneumonia on CT scan and normal WBC so will switch antibioitics to doxycycline. Dr. Moralez consulted. Transitioning to oral steroids. (4) Hypertension Code(s): I10 - ESSENTIAL (PRIMARY) HYPERTENSION Status: Chronic Qualifiers: Hypertension type: essential hypertension (5) Interstitial fibrosis Code(s): J84.10 - PULMONARY FIBROSIS, UNSPECIFIED Status: Chronic - Plan * Acute on chronic respiratory failure due to pneumonia- Continue Vancomycin and Zosyn * COPD exacerbation- this is due to pneumonia- continue antibiotics as well as steroids, but will decrease the dose. * HTN- blood pressure is stable * ILD- stable * Severe deconditioning- patient says she stopped walking about 6 weeks ago, after she fell and broke her arm, she tells me she has not been getting therapy at home. she says she has help from family- continue PT/OT, and she may benefit from out patient PT/OT
[2018-11-17] MEDS ORDERED: Vancomycin HCl 1 GM in Sodium Chloride 0.9% 250 ML 300 ML IVPB SCH (12:00)
[2018-11-17] MEDS: Vancomycin HCl 1 GM in Premix Bag 1 BAG IVPB SCH (12:55)
[2018-11-17] MEDS: Acetaminophen 500 MG TAB PO PRN (14:55)
[2018-11-17] MEDS: Famotidine 20 MG TAB PO SCH (20:37)
[2018-11-18] MEDS: Piperacillin/Tazobactam 2.25 GM in Sodium Chloride 0.9% 100 ML IVPB SCH ×3 (00:56→11:57)
[2018-11-18] MEDS: methylPREDNISolone Sod Succ 40 MG VIAL IVP SCH ×3 (00:59→14:15)
[2018-11-18] MEDS: Sodium Chloride 0.9% 1,000 ML IV SCH ×2 (05:34→21:17)
[2018-11-18 06:32] LABS: Anion Gap 13 mmol/L (10-20); BUN (Urea Nitrogen) 50 mg/dL (9.8-20.1); Calc. Creatinine Clearance 26 mL/min (70-130); Carbon Dioxide 24 mmol/L (23-31); Chloride 105 mmol/L (98-107); Estimated GFR-MDRD 29; Glucose 138 mg/dL (83-110); Sodium 137 mmol/L (136-145)
[2018-11-18] MEDS: Mometasone/Formoterol 120 PUFF INHALER INH SCH ×2 (07:19→18:17)
[2018-11-18] MEDS ORDERED: Sodium Chloride 0.9% 10 ML ONE (08:00)
[2018-11-18] MEDS: Carvedilol 3.125 MG TAB PO SCH ×2 (08:56→21:17)
[2018-11-18] MEDS: Stress 600 With Zinc 1 TAB PO SCH (08:57)
[2018-11-18] MEDS: Gabapentin 100 MG CAP PO SCH ×3 (08:57→21:17)
[2018-11-18] MEDS: guaiFENesin ER 600 MG TAB PO SCH ×2 (08:57→21:17)
--- NOTE | 2018-11-18 09:57 | PRG ---
DATE OF SERVICE: 11/18/2018 SUBJECTIVE: This morning, she says she is feeling better. She is less short of breath, still coughing up some yellow sputum. OBJECTIVE: VITAL SIGNS: Blood pressure is 123/65, saturations are 100% on 3 L, respiratory rate 18, temperature 98. CHEST: Decreased breath sounds. No wheezing. CARDIAC: Normal S1, S2. No gallops. ABDOMEN: No masses. LABORATORY DATA: Creatinine 1.67, probably at baseline. ASSESSMENT AND PLAN: Congestive heart failure, chronic obstructive pulmonary disease, pneumonia, bronchitis, severe deconditioning. The patient appears to be relatively stable at a baseline. I would deescalate antibiotics. Cultures are negative. Job ID: [id number]
[2018-11-18 11:43] LABS: Vancomycin, Trough 15.6 ug/mL
[2018-11-18] MEDS: Vancomycin HCl 1 GM in Premix Bag 1 BAG IVPB SCH (11:58)
[2018-11-18 12:50] LABS: #Lymphocytes 1.1 thou/uL (1.20-3.40); #Monocytes 0.2 thou/uL (0.11-0.59); #Neutrophils 15.8 thou/uL (1.40-6.50); %Basophils 0.1 % (0.0-1.0); %Eosinophils 0.3 % (0.0-10.0); %Lymphocytes 6.3 % (21.0-51.0); %Monocytes 1.2 % (0.0-10.0); %Neutrophils 92.1 % (42.0-75.0); Hemoglobin 12.5 g/dL (12.0-16.0); Mean Corpuscular HGB CONC 31.8 g/dL (32.0-36.0); Mean Corpuscular Hemoglobin 27.6 pg (27.0-31.0); Mean Corpuscular Volume 86.8 fL (78.0-98.0); Mean Platelet Volume 8.2 fL (7.4-10.4); Platelet Count 252 thou/uL (130-400); RBC Distribution Width 15.4 % (11.5-14.5); Red Blood Cell (RBC) Count 4.52 mill/uL (4.20-5.40); White Blood Cell (WBC) Count 17.1 thou/uL (4.8-10.8)
--- NOTE | 2018-11-18 12:53 | PDOC.PN ---
- Subjective Encounter Start Date: 11/18/18 Encounter Start Time: 11:30 Ms. Branham was seen today in follow-up of pneumonia. she is feeling a bit better today. She does not have any new complaints. - Objective Resuscitation Status - Order Detail: 11/16/18 18:05 Resuscitation Status Routine Resuscitation Status: FULL: Full Resuscitation MAR Reviewed: Yes Vital Signs & Weight: Vital Signs (12 hours) Temp Pulse Resp BP Pulse Ox 11/18/18 11:20 98.2 F 82 18 133/63 97 11/18/18 10:38 78 20 98 11/18/18 07: 98.0 F 73 18 123/65 100 11/18/18 07:16 72 16 100 11/18/18 03:35 97.4 F L 70 16 128/70 98 11/18/18 01:31 73 20 99 Weight Weight 148 lb 4.8 oz I&O: 11/17/18 11/18/18 11/19/18 06:59 06:59 06:59 Intake Total 240 1040 Output Total 600 650 Balance -360 390 Result Diagrams: 11/17/18 06:47 11/18/18 06:01 Phys Exam - Physical Examination HEENT: PERRLA Respiratory: no rhonchi, wheezing present + occasional wheeze Cardiovascular: RRR, no significant murmur, no rub Gastrointestinal: soft, non-tender, no distention, positive bowel sounds Musculoskeletal: no edema, pulses present Dx/Plan (1) Healthcare-associated pneumonia Code(s): J18.9 - PNEUMONIA, UNSPECIFIED ORGANISM Status: Acute (2) Acute and chronic respiratory failure with hypoxia Code(s): J96.21 - ACUTE AND CHRONIC RESPIRATORY FAILURE WITH HYPOXIA Status: Acute (3) COPD exacerbation Code(s): J44.1 - CHRONIC OBSTRUCTIVE PULMONARY DISEASE W (ACUTE) EXACERBATION Status: Acute Comment: On Zosyn, steroids, nebs from ER on 08/15/18. No significant pneumonia on CT scan and normal WBC so will switch antibioitics to doxycycline. Dr. Moralez consulted. Transitioning to oral steroids. (4) Hypertension Code(s): I10 - ESSENTIAL (PRIMARY) HYPERTENSION Status: Chronic Qualifiers: Hypertension type: essential hypertension (5) Interstitial fibrosis Code(s): J84.10 - PULMONARY FIBROSIS, UNSPECIFIED Status: Chronic (6) Muscular deconditioning Code(s): R29.898 - [facility] SYMPTOMS AND SIGNS INVOLVING THE MUSCULOSKELETAL SYSTEM Status: Acute - Plan * Pneumonia- will change her antibiotics to Levaquin * She is on home oxygen already * HTN- blood pressure is stable * COPD- stable * Deconditioning- she has refused PT here in the hospital, and refuses to go to [facility], and refuses home PT * Will order a bedside commode, to help at home, due to her reduced mobility from deconditioning and left arm fracture * I suspect she will be ready for discharge tomorrow
[2018-11-18] MEDS: Acetaminophen 500 MG TAB PO PRN (14:15)
[2018-11-18] MEDS: Famotidine 20 MG TAB PO SCH (21:18)
--- NOTE | 2018-11-19 01:16 | PDOC.EVN ---
Event Note - Event Note Event Note: Patient having short runs of VT and PAT; Check Mg++ and K+; patient on B nitish and does have EF 30%. Continue to monitor and will titrate up B nitish if reasonable.
[2018-11-19 02:01] LABS: Magnesium 2.2 mg/dL (1.6-2.6); Potassium 5.2 mmol/L (3.5-5.1)
[2018-11-19] MEDS: Sodium Chloride 0.9% 1,000 ML IV SCH (05:48)
[2018-11-19] MEDS: Mometasone/Formoterol 120 PUFF INHALER INH SCH (07:18)
[2018-11-19] MEDS ORDERED: predniSONE 20 MG TAB PO SCH (08:00)
[2018-11-19] MEDS: Gabapentin 100 MG CAP PO SCH (08:56)
[2018-11-19] MEDS: Carvedilol 3.125 MG TAB PO SCH (08:56)
[2018-11-19] MEDS: Stress 600 With Zinc 1 TAB PO SCH (08:56)
[2018-11-19] MEDS: guaiFENesin ER 600 MG TAB PO SCH (08:57)
--- NOTE | 2018-11-19 10:00 | PRG ---
DATE OF SERVICE: 11/19/2018 SUBJECTIVE: This morning, she says she is feeling better. OBJECTIVE: VITAL SIGNS: Saturations are 99% on 2 L, pulse 80, blood pressure 139/63, and temperature 97. GENERAL: She is less short of breath. CHEST: Decreased breath sounds. No wheezing. CARDIAC: Normal S1 and S2. No gallops. LABORATORY DATA: White count 17,000, hemoglobin and hematocrit of 12 and 39, platelet count is normal. Urine is growing yeast and gram-negative, probably colonization. IMPRESSION: Chronic obstructive pulmonary disease, respiratory failure, congestive heart failure, tobacco abuse. PLAN: Continue present treatment. Disposition as per Cardiology. Job ID: [id number]
--- NOTE | 2018-11-19 11:28 | PDOC.PN ---
- Subjective Encounter Start Date: 11/19/18 Encounter Start Time: 11:26 was seen today in follow-up of Pneumonia. she says she feels better today. she is less short of breath. She would like to go home. - Objective Resuscitation Status - Order Detail: 11/16/18 18:05 Resuscitation Status Routine Resuscitation Status: FULL: Full Resuscitation MAR Reviewed: Yes Vital Signs & Weight: Vital Signs (12 hours) Temp Pulse Resp BP Pulse Ox 11/19/18 11:10 80 24 H 11/19/18 08:00 97.2 F L 98 18 97/50 L 95 11/19/18 07:18 80 20 98 11/19/18 07:05 98 11/19/18 07:03 80 20 98 11/19/18 03:00 97.5 F L 76 20 139/67 93 L 11/19/18 01:35 78 14 Weight Weight 148 lb 4.8 oz I&O: 11/18/18 11/19/18 11/20/18 06:59 06:59 06:59 Intake Total 1040 1980 Output Total 650 1345 Balance 390 635 Result Diagrams: 11/18/18 12:40 11/19/18 01:34 Phys Exam - Physical Examination HEENT: PERRLA + rales at both bases, and occasional wheeze Cardiovascular: RRR 2/6 systolic heat murmur Gastrointestinal: soft, non-tender, no distention, positive bowel sounds Musculoskeletal: no edema, pulses present Dx/Plan (1) Healthcare-associated pneumonia Code(s): J18.9 - PNEUMONIA, UNSPECIFIED ORGANISM Status: Acute (2) Acute and chronic respiratory failure with hypoxia Code(s): J96.21 - ACUTE AND CHRONIC RESPIRATORY FAILURE WITH HYPOXIA Status: Acute (3) COPD exacerbation Code(s): J44.1 - CHRONIC OBSTRUCTIVE PULMONARY DISEASE W (ACUTE) EXACERBATION Status: Acute Comment: On Zosyn, steroids, nebs from ER on 08/15/18. No significant pneumonia on CT scan and normal WBC so will switch antibioitics to doxycycline. Dr. Moralez consulted. Transitioning to oral steroids. (4) Hypertension Code(s): I10 - ESSENTIAL (PRIMARY) HYPERTENSION Status: Chronic Qualifiers: Hypertension type: essential hypertension (5) Interstitial fibrosis Code(s): J84.10 - PULMONARY FIBROSIS, UNSPECIFIED Status: Chronic (6) Muscular deconditioning Code(s): R29.898 - [facility] SYMPTOMS AND SIGNS INVOLVING THE MUSCULOSKELETAL SYSTEM Status: Acute (7) Chronic systolic heart failure Code(s): I50.22 - CHRONIC SYSTOLIC (CONGESTIVE) HEART FAILURE Status: Acute - Plan * Pneumonia- she has improved. she has been stable on oral antibiotics * Will discharge home today.
[2018-11-19 13:05] VITALS: BP 127/59; TEMP 97
--- NOTE | 2018-11-20 01:35 | DIS ---
DATE OF ADMISSION: 11/16/2018 DATE OF DISCHARGE: 11/19/2018 PRIMARY CARE PHYSICIAN: Dr. Noni Alston. DISCHARGE DISPOSITION: Home. PRIMARY DISCHARGE DIAGNOSES: 1. Healthcare-associated pneumonia. 2. Acute on chronic respiratory failure with hypoxemia secondary to #1. 3. Chronic obstructive pulmonary disease. 4. Chronic systolic heart failure. 5. Chronic kidney disease, stage 3. 6. Hypertension. 7. Deconditioning. 8. History of aortic aneurysm repair. 9. Chronic interstitial lung disease. 10. History of breast cancer, status post radiation and surgery. DISCHARGE MEDICATIONS: Include: 1. Levaquin 500 mg daily for 5 days. 2. Prednisone 40 mg daily for 4 days. 3. Gabapentin 100 mg 3 times a day. 4. Lasix 40 mg daily. 5. Carvedilol 3.125 mg twice a day. 6. Vitamin B 1 tablet daily. 7. Aspirin 325 mg daily. CODE STATUS: Full code. ALLERGIES: TO IODINE, SHELLFISH, AND SULFA. HOSPITAL COURSE: Ms. Branham is a pleasant 83-year-old female, who presented to the emergency room with complaints of shortness of breath and weakness. She was evaluated in the ER and found to have pneumonia with sepsis. This is likely a healthcare associated pneumonia. She was started on IV antibiotics and DuoNeb, as well as steroids and improved over the course of the next couple of days. She has a history of chronic systolic heart failure, but this is stable. She is not on an PLIAR inhibitor due to chronic kidney disease. The patient is severely deconditioned and said that she has basically been essentially bedridden ever since she fell back in June and fractured her humerus. I offered to have Physical Therapy see her, as well as send her home with physical therapy. She did decline this. We also talked about Longterm and Rehab, and she also did not want this as well. This was even after long discussion and her daughter was also at the bedside during one of the discussions and therefore, we will be discharging her home without home health or home physical therapy. I did explain to her that the longer she stays bedridden, the more likely she is to get continued weakness and recurrent pneumonia. She voiced understanding. However, unfortunately, she did not accept the services. She is to follow up with her primary care physician in 1 to 2 weeks. Job ID: [id number]
== END 2018-11-19 15:08 | disposition home or self-care (01) | DRG 871 ==
LOC: ERS 08:14 → ERHOLD 10:09 → 2NO 14:05
PROVIDERS: ADMIT Family Medicine; ATTEND Family Medicine
DX: A41.9 Sepsis, unspecified organism (principal); J18.9 Pneumonia, unspecified organism; J96.21 Acute and chronic respiratory failure with hypoxia; J44.0 Chronic obstructive pulmonary disease with (acute) lower respiratory infection; N17.9 Acute kidney failure, unspecified; I13.0 Hypertensive heart and chronic kidney disease with heart failure and stage 1 through stage 4 chronic kidney disease, or unspecified chronic kidney disease; J44.1 Chronic obstructive pulmonary disease with (acute) exacerbation; I50.22 Chronic systolic (congestive) heart failure; I42.8 Other cardiomyopathies; Z66 Do not resuscitate; N18.3 Chronic kidney disease, stage 3 (moderate); I25.10 Atherosclerotic heart disease of native coronary artery without angina pectoris; I73.9 Peripheral vascular disease, unspecified; J84.10 Pulmonary fibrosis, unspecified; R29.898 Other symptoms and signs involving the musculoskeletal system; Z79.899 Other long term (current) drug therapy; Z85.3 Personal history of malignant neoplasm of breast; Z99.81 Dependence on supplemental oxygen; Z90.2 Acquired absence of lung [part of]; Z92.3 Personal history of irradiation; Z91.041 Radiographic dye allergy status; Z88.2 Allergy status to sulfonamides; Z79.82 Long term (current) use of aspirin; Z74.01 Bed confinement status; Z87.01 Personal history of pneumonia (recurrent); Z90.10 Acquired absence of unspecified breast and nipple; Y95 Nosocomial condition; Z87.891 Personal history of nicotine dependence
CPT/HCPCS: 36415; 71045; 80048; 80053; 80202; 82550; 82553; 83605; 83735; 84132; 84484; 85007; 85025; 85027; 87040; 87086; 93005; 94640; 94664; 94760; 96361; 96365; 96367; J2543; J2920; J3370; J3490; J7050; J7512; J7620

== ENCOUNTER 2019-02-14 13:41 | Inpatient (IN) | payer MEDICARE, OTHER ==
--- NOTE | 2019-02-14 14:47 | CT ---
CT abdomen and pelvis noncontrast HISTORY: Flank pain. COMPARISON: 10/10/2016. FINDINGS: Mild atelectasis and interstitial thickening at the lung bases again demonstrated. Percutan eous nephrostomy on the right with coil in the lower aspect of the renal pelvis is again demonstrated. No hydronephrosis on the right. Double pigtail stent in place on the left with coil in urinary bladder and ureteropelvic junction. Th ere is distention of the left renal collecting system, ureter, and urinary bladder with the bladder measuring up to 12.7 cm craniocaudal length on the coronal reformatted images. Lack of contrast limits evaluation for other abnormalities. Hyperdense stones in the dependent portio n of the gallbladder. Gallbladder distended up to 8.8 cm. Atrophy of the left renal cortex appears stable. Calcification in the arterial structures. Aortofemoral bypass. IVC filter in place. Diverticu la arise from the colon without adjacent inflammation. IMPRESSION: Left hydroureteronephrosis is likely related to prominent distention of the urinary bladd er. Clinical correlation regarding other signs and symptoms of bladder outlet obstruction is required. Left ureteral stent is in good position. Right PCN in good position without evidence of complication. Cholelithiasis. Gallbladder distention. Clinical correlation regarding other signs and symptoms of ac jovana cholecystitis is required. Atherosclerosis. Diverticulosis. No evidence of diverticulitis.
--- NOTE | 2019-02-14 14:56 | CT ---
CT HEAD WITHOUT CONTRAST: Date: 02/14/19 INDICATION: Syncope. COMPARISON: 06/15/13. FINDINGS: Prominent cortical atrophy appears stable from prior exam. Moderate chronic ischemic white matter calderon nges also appear stable. There is no evidence of acute hemorrhage, mass, or infarct. Review of the osseous windows show opacification of the sphenoid air cell, which is a new finding whe n compared to the prior study. There is also opacification of right mastoid air cells. IMPRESSION: 1. No acute intracranial abnormality. The chronic brain changes are stable. 2. New opacification of the sphenoid sinus and opacification of right mastoid air cells. POS: [facility]
--- NOTE | 2019-02-14 14:59 | RAD ---
AP CHEST: Date: 02/14/19 HISTORY: Syncope. COMPARISON: 11/16/18. CT chest dated 08/15/18. FINDINGS: Mild cardiomegaly is stable. There is prominence extending from the aorta and left mid lung, which is consistent with aneurysm of the descending thoracic aorta, which was described on CT chest of . There are chronic lung parenchymal changes with increased interstitial markings and stranding, which was noted on the CT and appears stable. No evidence of new infiltrate. IMPRESSION: There are chronic lung changes. Evidence of thoracic aortic aneurysm again noted. POS: [facility]
--- NOTE | 2019-02-14 15:00 | RAD ---
LUMBAR SPINE 2 VIEWS: Date: 02/14/19 HISTORY: Back pain. FINDINGS: Slight scoliotic curvature to the right in AP projection. Mild degenerative changes of the lumbar spi ne with spurring. Loss of disc space at all levels of the lumbar spine below L1. Anterolisthesis Grad e I-II at L4-5. Facet hypertrophy. Left ureteral stent. IVC filter. Calcifications overlie the right upper quadrant, consistent with gallstones. IMPRESSION: Degenerative changes of the lumbar spine as described. Evidence of cholelithiasis is noted. POS: [facility]
[2019-02-14 15:24] LABS: Bacteria/HPF 3+ HPF (None Seen); Bilirubin Negative (Negative); Blood, Urine 2+ (Negative); Clarity Extra Turbid (Clear); Glucose, Urine (Dipstick) Normal (Negative); Leukocyte 500 Leu/uL (Negative); Nitrite Negative (Negative); Protein, Urine (Dipstick) 100 mg/dL (Neg-Trace); Squamous Epithelial 0-3 HPF (0-3); Urobilinogen Normal mg/dL (Less than 2); WBC/HPF Greater than 50 HPF (0-3)
[2019-02-14 15:26] LABS: Transitional Epithelial 0-3 HPF (None Seen); Yeast-Budding None Seen HPF (None Seen)
[2019-02-14 15:29] LABS: #Basophils 0.1 thou/uL (0.0-0.2); #Eosinphils 0.1 thou/uL (0.0-0.7); #Lymphocytes 1.6 thou/uL (1.20-3.40); #Monocytes 0.7 thou/uL (0.11-0.59); #Neutrophils 8.9 thou/uL (1.40-6.50); %Basophils 0.7 % (0.0-1.0); %Eosinophils 1.2 % (0.0-10.0); %Lymphocytes 13.7 % (21.0-51.0); %Monocytes 5.8 % (0.0-10.0); %Neutrophils 78.6 % (42.0-75.0); Hemoglobin 10.3 g/dL (12.0-16.0); Mean Corpuscular HGB CONC 31.2 g/dL (32.0-36.0); Mean Corpuscular Hemoglobin 27.3 pg (27.0-31.0); Mean Corpuscular Volume 87.5 fL (78.0-98.0); Platelet Count 212 thou/uL (130-400); Red Blood Cell (RBC) Count 3.77 mill/uL (4.20-5.40); White Blood Cell (WBC) Count 11.3 thou/uL (4.8-10.8)
[2019-02-14 15:48] LABS: ALT (SGPT) 8 U/L (8-55); AST (SGOT) 12 U/L (5-34); Albumin 3.1 g/dL (3.4-4.8); Alkaline Phosphatase 89 U/L (40-150); Anion Gap 15 mmol/L (10-20); BUN (Urea Nitrogen) 38 mg/dL (9.8-20.1); Bilirubin, Total 0.5 mg/dL (0.2-1.2); Calc. Creatinine Clearance 0 mL/min (70-130); Calcium 8.7 mg/dL (7.8-10.44); Carbon Dioxide 24 mmol/L (23-31); Chloride 104 mmol/L (98-107); Estimated GFR-MDRD 21; Glucose 86 mg/dL (83-110); Potassium 4.4 mmol/L (3.5-5.1); Protein, Total 6.1 g/dL (6.0-8.3); Sodium 139 mmol/L (136-145)
[2019-02-14] MEDS ORDERED: cefTRIAXone\\ROCEPHIN 2 GM VIAL ONE (16:00)
[2019-02-14 16:11] LABS: CKMB 1.2 ng/mL (0-6.6)
[2019-02-14 19:01] LABS: Troponin I 0.015 ng/mL (< 0.028)
[2019-02-14 19:29] VITALS: BMI 21.6
[2019-02-14 21:07] LABS: Troponin I 0.022 ng/mL (< 0.028)
[2019-02-14] MEDS ORDERED: Ondansetron PF 4 MG/2 ML Vial IVP PRN (22:42)
[2019-02-14] MEDS ORDERED: Acetaminophen 650 MG Suppository PR PRN (22:42)
[2019-02-14] MEDS ORDERED: Acetaminophen 325 MG TAB PO PRN (22:42)
[2019-02-14] MEDS ORDERED: Ondansetron ODT 4 MG TAB PO PRN (22:42)
[2019-02-14] MEDS ORDERED: Albuterol Sulfate 2.5 mg/3 ml Neb NEB SCH (23:59)
--- NOTE | 2019-02-15 03:16 | HP ---
PRIMARY CARE DOCTOR: Dr. Noni Alston. CODE STATUS: Full code. TIME OF EVALUATION: 11:30 p.m.. CHIEF COMPLAINT: Syncope. HISTORY OF PRESENT ILLNESS: 83 years old female patient, with past medical history of congestive heart failure, malignancy, breast cancer, COPD, came to the hospital after having an episode of syncope. The patient was transferring from the wheelchair into the car. The patient basically passed out. Blood pressure was found to be in the 60s and tachycardic associated with some back pain for the past 3 days. The patient did not hit the floor. Symptoms were severe. No clear triggers, no alleviating factors. REVIEW OF SYSTEMS: CONSTITUTIONAL: No fever, chills, or generalized weakness. RESPIRATORY: No cough, sputum production, or shortness of breath. CARDIOVASCULAR: No chest pain or palpitation. GASTROINTESTINAL: No nausea, no vomiting, diarrhea, or abdominal pain. OFFICE MACHINE TECHNICIAN: The patient has no dizziness or headache. The patient has an episode of syncope. The patient is feeling lightheaded. GENITOURINARY: No burning on urination. EXTREMITIES: No leg swelling. All other systems were reviewed and negative except for the findings mentioned above. PAST MEDICAL HISTORY: Include congestive heart failure, malignancy, and the findings reported in the HPI. PAST SURGICAL HISTORY: Left lumpectomy, aortic aneurysm repair, renal stents. Surgical history of hernia repair, nephrostomy. PSYCHIATRIC HISTORY: No previous psych history. FAMILY HISTORY:Reviewed and non contributory for current presentation. SOCIAL HISTORY: No alcohol. No drugs. The patient is a former smoker. KNOWN ALLERGIES: Iodine, shellfish-containing products, sulfa. REPORTED MEDICATIONS: Symbicort, Lasix, Proventil, metoprolol, gabapentin. PHYSICAL EXAMINATION: VITAL SIGNS: Blood pressure 110/59 with heart rate 81, respiratory rate was 25, temperature 97.6. Pain was 10/10. Oxygen saturation 97% on 3 L. GENERAL APPEARANCE: The patient is alert, oriented, no acute distress. HEENT: Eyes, normal conjunctivae. Moist oral mucosa. Anicteric. No JVD. RESPIRATORY: Bilateral air entry. No rales. No wheezes. Symmetric expansion. CARDIOVASCULAR: Normal rate, regular rhythm. No murmurs. No gallop. No edema. ABDOMEN: Soft. Normal bowel sounds. MUSCULOSKELETAL: Baseline range of motion and strength. SKIN: Warm, intact. No pallor. No rash. No redness. Capillary refill seems to be intact. GENITOURINARY: The patient has right-sided nephrostomy tube. NEURO: No evidence of any new focal weakness. Cranial nerves seems to be intact. PSYCH: The patient is in good mood. No anxiety. Optimal judgment. IMAGING STUDIES: EKG was reviewed. The patient has normal sinus rhythm with some PACs at the rate of 79, incomplete RBBB, hypertrophy with repolarization abnormalities. Abdomen and pelvis CT shows left hydroureteronephrosis, it is likely related to prominent distention of the urinary bladder. Clinical correlation regarding other signs and symptoms of bladder outlet obstruction is required. Left ureteral stent is in good position. Right PCN in good position without evidence of complication. Cholelithiasis, gallbladder distention. Clinical correlation regarding signs and symptoms of acute cholelithiasis is required. Atherosclerosis, diverticulosis, no evidence of diverticulitis. Lumbar spine x-ray was reviewed. The patient has degenerative changes of the lumbar spine cholelithiasis is noted. Chest x-ray was reviewed. There are chronic lung changes. Evidence of thoracic aortic aneurysm again noted. Brain CT was done. Impression, no acute intracranial abnormality they are stable. Near opacification of the sinus and opacification of the right mastoid air cells. LABORATORY DATA: Reviewed. The patient has white count 11.3, hemoglobin 10.3, MCV 87.5, platelet count 212. Chemistry; sodium 139, potassium 4.4, chloride 104, carbon dioxide 24, anion gap 15, BUN 38, creatinine 2.25, previous creatinine was 1.67, GFR 21, glucose 86, calcium 9.7, total bilirubin 0.5, AST 12, ALT 8, alkaline phosphatase 89. Troponin 0.032, second one is 0.015, third one 0.022. B-type natriuretic peptide is 240. Albumin 3.1. Urine was done. The patient has white count greater than 50, rbc's 11 to 20, urine leukocyte esterase 500. ASSESSMENT AND PLAN: The patient will be placed in the hospital with following medical problems. 1. Episode of syncope, unclear etiology. The patient was hypotensive. We will do a syncope workup. Given the patient on tele, we will do echo, we will do carotid Doppler. We will monitor overnight, treat accordingly. 2. Normocytic anemia. MCV is 87, likely related to chronic kidney disease. We will monitor and treat accordingly. 3. Chronic kidney disease, seems to be acute on chronic. Creatinine has an increase of more than 0.3 when compared with previous values. Will need some hydration. We will monitor, we will treat accordingly. We will hold diuresis for now. The patient does not seems to be fluid overload. We will adjust treatment as needed. 4. Mildly elevated troponin, the second and third were negative. We will monitor. This is not clinically significant. 5. Urinary tract infection. The patient has been placed on antibiotics that we will continue for now. We will follow cultures. Adjust treatment as per sensitivity. Job ID: [id number] [facility]
[2019-02-15 05:45] LABS: Anion Gap 13 mmol/L (10-20); BUN (Urea Nitrogen) 34 mg/dL (9.8-20.1); Calc. Creatinine Clearance 22 mL/min (70-130); Calcium 8.6 mg/dL (7.8-10.44); Carbon Dioxide 26 mmol/L (23-31); Chloride 103 mmol/L (98-107); Estimated GFR-MDRD 24; Glucose 80 mg/dL (83-110); Potassium 4.1 mmol/L (3.5-5.1); Sodium 138 mmol/L (136-145)
[2019-02-15 05:57] LABS: #Basophils 0.1 thou/uL (0.0-0.2); #Eosinphils 0.2 thou/uL (0.0-0.7); #Lymphocytes 2.5 thou/uL (1.20-3.40); #Monocytes 0.6 thou/uL (0.11-0.59); #Neutrophils 4.7 thou/uL (1.40-6.50); %Eosinophils 2.5 % (0.0-10.0); %Lymphocytes 31.3 % (21.0-51.0); %Monocytes 7.5 % (0.0-10.0); %Neutrophils 57.7 % (42.0-75.0); Anisocytosis SLIGHT = 6-15 cells (100X) (0-5/hpf); Hemoglobin 9.3 g/dL (12.0-16.0); MDiff Complete? YES; Mean Corpuscular HGB CONC 29.9 g/dL (32.0-36.0); Mean Corpuscular Hemoglobin 26.4 pg (27.0-31.0); Mean Corpuscular Volume 88.3 fL (78.0-98.0); Mean Platelet Volume 7.9 fL (7.4-10.4); Platelet Count 210 thou/uL (130-400); Red Blood Cell (RBC) Count 3.51 mill/uL (4.20-5.40); White Blood Cell (WBC) Count 8.1 thou/uL (4.8-10.8)
[2019-02-15] MEDS: Albuterol Sulfate 2.5 mg/3 ml Neb NEB SCH ×3 (07:12→18:46)
--- NOTE | 2019-02-15 07:52 | ULT ---
EXAM: Carotid ultrasound HISTORY: Syncope COMPARISON: None TECHNIQUE: Multiplanar grayscale and color Doppler images were obtained in a carotid ultrasound. Spec tral analysis of the Doppler waveforms were performed. FINDINGS: A moderate amount of plaque is visualized in both proximal internal carotid arteries. No significant plaque is seen in either common carotid artery. The Doppler waveforms are normal in the visualized vessels. Peak systolic velocity in the right internal carotid artery 89 cm/s. Peak systolic velocity in the right common carotid artery 98 cm/s. The right ICA/CCA ratio is 0.9. Peak systolic velocity in the left internal carotid artery 68 cm/s. Peak systolic velocity in the left common carotid artery 86 cm/s. The left ICA/CCA ratio is 0.8. Both vertebral arteries demonstrate antegrade flow without focal stenosis IMPRESSION: No evidence of hemodynamically significant stenosis.
[2019-02-15] MEDS ORDERED: Furosemide 40 MG TAB PO SCH (09:00)
[2019-02-15] MEDS ORDERED: Enoxaparin Sodium 30 MG/0.3 ML SYRINGE SC SCH (09:00)
[2019-02-15] MEDS: predniSONE 20 MG TAB PO SCH (09:15)
[2019-02-15] MEDS: Stress 600 With Zinc 1 TAB PO SCH (09:15)
[2019-02-15] MEDS: Gabapentin 100 MG CAP PO SCH ×3 (09:16→21:00)
[2019-02-15] MEDS: Carvedilol 3.125 MG TAB PO SCH (09:16)
[2019-02-15] MEDS: Potassium Chloride 20 MEQ TAB PO SCH ×2 (09:16→09:18)
--- NOTE | 2019-02-15 18:57 | PDOC.HOSPP ---
- Subjective Subjective: Patient states she is feeling well, her back pain has fully resolved. Reports noting very cloudy and foul smelling urine when the childers catheter was initially placed. Did not realize she had not been urinating as normal. Denies any chest pain or shortness of breath, uses oxygen at home. No further dizziness or lightheadedness. - Objective Vital Signs & Weight: Vital Signs (12 hours) Temp Pulse Resp BP BP Pulse Ox 02/15/19 15:00 97.8 F 61 20 94/53 L 96 02/15/19 13:40 98.6 F 61 19 92/51 L 93 L 02/15/19 11:47 96/58 L 02/15/19 11:40 98.5 F 75 16 89/49 L 93 L 02/15/19 08:00 98.4 F 69 16 103/51 L 100 02/15/19 07:12 80 14 Weight Weight 146 lb 4.8 oz I&O: 02/14/19 02/15/19 02/16/19 06:59 06:59 06:59 Intake Total 200 950 Output Total 1600 400 Balance -1400 550 Result Diagrams: 02/15/19 05:06 02/15/19 05:06 ROS - Review of Systems All systems: All other ROS were reviewed and found negative. Constitutional: denies: fever, chills, sweats, weakness, malaise, other Eyes: denies: pain, vision change, conjunctivae inflammation, eyelid inflammation, redness, other ENT: denies: ear pain, ear discharge, nose pain, nose discharge, nose congestion , mouth pain, mouth swelling, throat pain, throat swelling, other Respiratory: denies: cough, dry, shortness of breath, hemoptysis, SOB with excertion, pleuritic pain, sputum, wheezing, other Cardiovascular: denies: chest pain, palpitations, orthopnea, paroxysmal noc. dyspnea, edema, light headedness, other Gastrointestinal: denies: nausea, vomitting, abdominal pain, diarrhea, constipation, melena, hematochezia, other Genitourinary: denies: dysuria, frequency, incontinence, hematuria, retention, other Musculoskeletal: denies: neck pain, shoulder pain, arm pain, back pain, hand pain, leg pain, foot pain, other Skin: denies: rash, lesions, facundo, bruising, other Neurological: denies: weakness, numbness, incoordination, change in speech, confusion, seizures, other - Medication Medications: Active Medications Generic Name Dose Route Start Last Admin Trade Name Freq PRN Reason Stop Dose Admin Acetaminophen 650 mg 02/14/19 22:42 02/15/19 12:21 Tylenol PO 650 mg Q4H PRN Administration Headache/Fever/Mild Pain (1-3) Albuterol Sulfate 2.5 mg 02/15/19 07:00 02/15/19 12:05 Ventolin NEB 2.5 mg [id number] DONNY Administration Carvedilol 12.5 mg 02/15/19 08:00 02/15/19 09:16 Coreg PO 12.5 mg QAM-WM DONNY Administration Gabapentin 100 mg 02/15/19 09:00 02/15/19 15:20 Neurontin PO 100 mg TID DONNY Administration Multivitamins/Zinc 1 tab 02/15/19 09:00 02/15/19 09:15 Stress 600 With Zinc PO 1 tab DAILY DONNY Administration Ondansetron HCl 4 mg 02/14/19 22:42 02/15/19 12:21 Zofran Odt PO 4 mg Q6H PRN Administration Nausea/Vomiting Potassium Chloride 20 meq 02/15/19 09:00 02/15/19 09:18 K-Dur PO Not Given DAILY DONNY Prednisone 40 mg 02/15/19 08:00 02/15/19 09:15 Prednisone PO 40 mg QAM-WM DONNY Administration - Exam NAD, awake alert Eye: PERRL, anicteric sclera ENT: normocephalic atraumatic, no oropharyngeal lesions, moist mucosa Heart: RRR, no murmur, no gallops, no rubs, normal peripheral pulses Respiratory: CTAB, no wheezes, no rales, no ronchi, normal chest expansion Gastrointestinal: soft, non-tender, non-distended, normal bowel sounds, no palpable masses Extremities: no cyanosis, no clubbing, no edema Skin: normal turgor, no rashes Neurological: CN's grossly intact, no weakness, no focal deficits Musculoskeletal: normal tone Psychiatric: normal affect, normal behavior, A&O x 3 Hosp A/P (1) Syncope Code(s): R55 - SYNCOPE AND COLLAPSE Status: Acute Plan: likely due to urinary retention/UTI. Syncope work-up. Orthostatic Bps cant be done as patient unable to stand. Carotid US normal. Echo done, awaiting results. CT Brain without acute intracranial abnormalities. (2) UTI (urinary tract infection) Status: Acute Plan: Continue IV Abx, noted hematuria on urinalysis. D/C anticoagulation. (3) Obstructive uropathy Code(s): N13.9 - OBSTRUCTIVE AND REFLUX UROPATHY, UNSPECIFIED Status: Chronic Plan: Hx of left ureteral stent, and right nephrostomy tube. CT A/P: left hydronephrosis with bladder distention, ?outlet obstruction. Per discussion with Dr. Richards given complicated history and findings, advised consult to Dr. Warren. (4) COPD exacerbation Code(s): J44.1 - CHRONIC OBSTRUCTIVE PULMONARY DISEASE W (ACUTE) EXACERBATION Status: Chronic (5) Chronic systolic heart failure Code(s): I50.22 - CHRONIC SYSTOLIC (CONGESTIVE) HEART FAILURE Status: Chronic (6) CAD (coronary artery disease) Code(s): I25.10 - ATHSCL HEART DISEASE OF [place] CORONARY ARTERY W/O ANG PCTRS Status: Chronic Qualifiers: Coronary Disease-Associated Artery/Lesion type: [place] artery [place] vs. transplanted heart: [place] heart Associated angina: with stable angina Qualified Code(s): I25.118 - Atherosclerotic heart disease of [place] coronary artery with other forms of angina pectoris (7) CKD (chronic kidney disease) Code(s): N18.9 - CHRONIC KIDNEY DISEASE, UNSPECIFIED Status: Chronic Qualifiers: Chronic kidney disease stage: stage 3 (moderate) Qualified Code(s): N18.3 - Chronic kidney disease, stage 3 (moderate) (8) Hypertension Code(s): I10 - ESSENTIAL (PRIMARY) HYPERTENSION Status: Chronic Qualifiers: Hypertension type: essential hypertension - Plan continue antibiotics, DVT proph w/SCDs Status changed to inpatient as per Dr. Richards.
[2019-02-15] MEDS: cefTRIAXone\\ROCEPHIN 1 GM in Sodium Chloride 0.9% 100 ML IVPB SCH (22:07)
[2019-02-16] MEDS: Albuterol Sulfate 2.5 mg/3 ml Neb NEB SCH ×4 (00:33→18:15)
[2019-02-16] MEDS: predniSONE 20 MG TAB PO SCH (08:59)
[2019-02-16] MEDS: Carvedilol 3.125 MG TAB PO SCH ×2 (08:59→16:13)
[2019-02-16] MEDS: Potassium Chloride 20 MEQ TAB PO SCH (09:00)
[2019-02-16] MEDS: Gabapentin 100 MG CAP PO SCH ×3 (09:00→20:25)
[2019-02-16] MEDS: Stress 600 With Zinc 1 TAB PO SCH (09:00)
--- NOTE | 2019-02-16 10:35 | CON ---
DATE OF CONSULTATION: 02/16/2019 HISTORY OF PRESENT ILLNESS: This is an 83-year-old white female, who I am very familiar with, who came into the hospital, I guess late last night. She had a fall at home, syncopal episode. She was brought to the ER. CAT scan was done that showed she had a distended bladder, a catheter was placed. I do not know how much that was obtained. The urine was cloudy. Urinalysis showed over 50 white cells and 3+ bacteria. Her creatinine was 2.25, it is 2.0 now. Her white count was 11.3, slightly elevated, it is normal now. Her hemoglobin is 9.3, which is probably about baseline for her. She has a gram-negative bernadette growing in the urine and she is currently on Rocephin. Her vital signs through the night, she has been afebrile. Blood pressure is okay, not tachycardic. O2 saturation on nasal cannula is in the mid 90s. 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 She was initially managed with bilateral stents and then, the right ureter was completely occluded, requiring her to have a right nephrostomy tube, which she has had for probably a couple of years. The stent on the left side and the nephrostomy tube were usually changed about every three months due to scheduling from my office. She had chronic renal insufficiency for years. In addition, she has numerous other health issues including fairly significant COPD. I did review her CAT scan, nephrostomy tube on the right and stent on the left appeared to be in good position. There was some mild hydronephrosis on the left, which is probably related to distended bladder. She has had a Cheek catheter drainage, she feels much more comfortable. The urine is now clear, although it was reported cloudy when it was placed. I talked with her specifically about her comfort with the catheter, and she says she actually feels good with that in. Her flanks are nontender. Her abdomen is soft and nontender without mass. IMPRESSION: 1. History of bilateral ureteral obstruction. The left managed with an internal stent. The right managed with a nephrostomy tube. Neither of these need to be changed out right now. 2. Urinary tract infection. 3. Incomplete emptying. PLAN: Plan at this time will be to leave the Cheek catheter in and actually probably leave this in for good and have a home health nurse to change it out every 3 to 4 weeks at her house. If she is unable to empty well, then she is going to end up getting a recurrent bacteria in the urine and it will spread to the upper tracts. Continue on her current antibiotic and we will see what their gram-negative bernadette grows out to be and what sensitivities are as they return. I will follow along with you. Job ID: [id number]
--- NOTE | 2019-02-16 11:31 | PDOC.HOSPP ---
- Subjective Encounter Date: 02/16/19 Encounter Time: 11:29 Subjective: Ms. Branham was seen today in follow-up. She says she is feeling a bit better. She still feels weak however. - Objective Vital Signs & Weight: Vital Signs (12 hours) Temp Pulse Resp BP BP BP Pulse Ox 02/16/19 07:59 97.4 F L 62 16 122/61 125/82 112/55 L 96 02/16/19 06:38 95 02/16/19 06:37 62 16 95 02/16/19 03:15 96.8 F L 59 L 18 123/56 L 98 Weight Weight 140 lb I&O: 02/15/19 02/16/19 02/17/19 06:59 06:59 06:59 Intake Total 200 1125 Output Total 1600 700 Balance -1400 425 Result Diagrams: 02/15/19 05:06 02/15/19 05:06 ROS - Medication Medications: Active Medications Generic Name Dose Route Start Last Admin Trade Name Freq PRN Reason Stop Dose Admin Acetaminophen 650 mg 02/14/19 22:42 02/15/19 12:21 Tylenol PO 650 mg Q4H PRN Administration Headache/Fever/Mild Pain (1-3) Albuterol Sulfate 2.5 mg 02/15/19 07:00 02/16/19 06:37 Ventolin NEB 2.5 mg [id number] DONNY Administration Gabapentin 100 mg 02/15/19 09:00 02/16/19 09:00 Neurontin PO 100 mg TID DONNY Administration Ceftriaxone Sodium 1 gm/ 100 mls @ 200 mls/hr 02/15/19 23:00 02/15/19 22:07 Sodium Chloride IVPB 100 mls Q24HR DONNY Administration Multivitamins/Zinc 1 tab 02/15/19 09:00 02/16/19 09:00 Stress 600 With Zinc PO 1 tab DAILY DONNY Administration Ondansetron HCl 4 mg 02/14/19 22:42 02/15/19 12:21 Zofran Odt PO 4 mg Q6H PRN Administration Nausea/Vomiting Potassium Chloride 20 meq 02/15/19 09:00 02/16/19 09:00 K-Dur PO 20 meq DAILY DONNY Administration Prednisone 40 mg 02/15/19 08:00 02/16/19 08:59 Prednisone PO 40 mg QAM-WM DONNY Administration - Exam NAD, awake alert Eye: PERRL, anicteric sclera Neck: supple, no JVD Heart: RRR, no gallops, no rubs, normal peripheral pulses, II/IV Respiratory: CTAB, no wheezes, no rales, no ronchi, normal chest expansion Gastrointestinal: soft, non-tender, non-distended, normal bowel sounds, no palpable masses, no hepatomegaly Extremities: no cyanosis, no clubbing, 1+ LE edema Hosp A/P (1) Syncope Code(s): R55 - SYNCOPE AND COLLAPSE Status: Acute (2) Muscular deconditioning Code(s): R29.898 - OTH SYMPTOMS AND SIGNS INVOLVING THE MUSCULOSKELETAL SYSTEM Status: Chronic (3) CAD (coronary artery disease) Code(s): I25.10 - ATHSCL HEART DISEASE OF [place] CORONARY ARTERY W/O ANG PCTRS Status: Chronic Qualifiers: Coronary Disease-Associated Artery/Lesion type: [place] artery [place] vs. transplanted heart: [place] heart Associated angina: with stable angina Qualified Code(s): I25.118 - Atherosclerotic heart disease of [place] coronary artery with other forms of angina pectoris (4) Chronic systolic heart failure Code(s): I50.22 - CHRONIC SYSTOLIC (CONGESTIVE) HEART FAILURE Status: Chronic (5) Hypertension Code(s): I10 - ESSENTIAL (PRIMARY) HYPERTENSION Status: Chronic Qualifiers: Hypertension type: essential hypertension (6) Complicated UTI (urinary tract infection) Code(s): N39.0 - URINARY TRACT INFECTION, SITE NOT SPECIFIED Status: Acute (7) Urinary retention Code(s): R33.9 - RETENTION OF URINE, UNSPECIFIED Status: Chronic - Plan * Syncope- ? etiology- carotid dopplers were negative, but it is noted that her EF is much lower than her prior Echo. She tells me she has not had outpatient follow-up for heart failure in some time, due to lack of transportation- will consult Cardiology * UTI- she has some urinary retention, and indwelling childers catheter- Urology input appreciated- Urine culture is growing a gram negative bernadette. Will await the final urine culture results. Continue Rocephin in the interim * CAD- stable * HTN- blood pressure is stable * Deconditioning- continue PT/OT
--- NOTE | 2019-02-16 12:52 | CON ---
DATE OF CONSULTATION: HISTORY OF PRESENT ILLNESS: The patient is an 83-year-old woman, who presents after losing consciousness. The patient has a history of cardiomyopathy. She was seen in January of 2018 with dyspnea. She underwent an echocardiogram, which revealed an ejection fraction of only 25% to 30%. The patient was treated medically. The patient also has chronic renal insufficiency. She was seen earlier in August of this year with congestive heart failure and possible pulmonary fibrosis. The patient underwent a repeat echocardiogram, which revealed an ejection fraction of 30% to 35%. The patient was placed on Coreg. The patient was in her usual state of health when she was getting out of the car and suddenly lost consciousness. The patient denied having being dehydrated. She has been compliant with her medications, but not able to come for followup. For followup, the patient denied having any chest discomfort. PAST MEDICAL HISTORY: 1. Cardiomyopathy. 2. Breast carcinoma. 3. Renal insufficiency. 4. COPD. PAST SURGICAL HISTORY: Aortic aneurysm and a stent placed. SOCIAL HISTORY: She is a former smoker. ALLERGIES: IODINE AND SULFA. FAMILY HISTORY: Positive family history of heart disease. MEDICATIONS: 1. Coreg 12.5 daily. 2. Lasix 40 daily. 3. Potassium 20 daily. 4. Gabapentin 100 t.i.d. REVIEW OF SYSTEMS: Ten-point system otherwise unremarkable. PHYSICAL EXAMINATION: GENERAL: Ill-appearing woman. VITAL SIGNS: Blood pressure of 112/55. NECK: Showed no jugular venous distention. LUNGS: Have coarse breath sounds bilateral. HEART: Regular rate and rhythm. Normal S1, S2. ABDOMEN: Distended. EXTREMITIES: Showed trace edema. VASCULAR: Radial pulses 2+. LABORATORY RESULTS: Sodium 139, potassium 4.4, chloride 104, bicarbonate 24, BUN 38, creatinine 2.25. Troponin 0.032. White blood cell count 8.1, hemoglobin 9.3, hematocrit 31.0, platelets are 210. IMAGING STUDIES: Her EKG revealed normal sinus rhythm, incomplete left bundle-branch block. IMPRESSION: 1. Syncope, probably orthostatic. 2. Severe cardiomyopathy. 3. History of aortic aneurysm. 4. Renal insufficiency. 5. Chronic obstructive pulmonary disease. This patient presented with a syncopal episode most likely with orthostatic since she is bedridden and was getting into the car. She is; however,at high risk of malignant arrhythmias with a recent echocardiogram showing severe decrease in left ventricular systolic function. With her severe COPD, we will decrease the dose of her carvedilol. Further recommendations will follow. Job ID: [id number] MTDD
--- NOTE | 2019-02-16 19:58 | CON ---
DATE OF CONSULTATION: 02/16/2019 ADDITIONAL REFERRING PHYSICIAN: Junior March MD HISTORY OF PRESENT ILLNESS: I am seeing Ms. Brahnam at our [facility] Telemetry Floor as an Electrophysiology consult. Her problems are: 1. Chronic systolic congestive heart failure with nonischemic cardiomyopathy. a. History of reduced LVEF on a prior echocardiogram in March 2016. b. Followup echocardiogram this admission on 02/15/2019 is at 15% to 20%. c. No prior history of heart disease or heart attacks. No history of cardiac stents. 2. Syncopal spell on admission. 3. History of renal insufficiency. a. History of ureteral stents and also all urostomy in place. 4. History of COPD. 5. History of breast cancer. 6. History of chronic back pain. ALLERGIES: IODINE, SHELLF[place], AND SULFA. MEDICATIONS: At home included; 1. Vitamin D. 2. Gabapentin. 3. Furosemide. 4. Prednisone. 5. Albuterol. 6. Potassium. 7. Carvedilol. SUBJECTIVE: Ms. Branham is here with a syncopal spell. This happened while she was transferring from her wheelchair to the car in the heat. She has some orthostatic dizziness at times. She was down very shortly and came to the hospital workup, after less than a minute. She had no recurrent syncopal spells since or prior to that. She had issues with low blood pressure on presentation in the 60s and her heart rate was rapid, but in sinus. She has back pains for past 3 days prior to admission. She did not hit the floor. She did have history of shoulder fracture back in June, at which point, conservative measures were initiated and she still has a shoulder pain. She has no PND, orthopnea, or lower extremity edema. No fever, chills, or cough. No angina-like chest discomfort at this time. Rest of 12-point review of system was unremarkable. PAST MEDICAL HISTORY: As above and she has history of back surgery, renal stent placement, and urostomy. The patient mentioned history of atrial fibrillation, not noted here. The patient have a history of aortic aneurysm repair by Dr. Don in the past. FAMILY HISTORY: Significant for heart disease in the surrounding family. SOCIAL HISTORY: The patient is a prior smoker. Denies EtOH or drug abuse. PHYSICAL EXAMINATION: VITAL SIGNS: Blood pressure is 103/51, heart rate 58, respirations 17, and the patient is afebrile. GENERAL: Alert and oriented woman, in no apparent distress. NECK: Supple. Jugular veins not distended. CHEST: Coarse without crackles. HEART: Sounds are regular to rate and rhythm without any murmur or gallop. ABDOMEN: Benign. Bowel sounds positive. EXTREMITIES: Lower extremity without edema, clubbing, or cyanosis. Pulses are adequate. NEUROLOGIC: Nonfocal. MUSCULOSKELETAL: Without joint swelling or deformity. SKIN: Without rash. DATABASE: EKG is reviewed revealing sinus rhythm, rate of 79 beats per minute, PACs are seen, narrow QRS at 106 milliseconds seen with signs of LVH, incomplete left bundle-branch block is noted. LABORATORY DATA: White cell count is 8.1, hemoglobin 9.3, and platelet count is 210. Sodium 138, potassium 4.1, BUN is 34, and creatinine is 2.0. The troponin levels are 0.015 and 0.022. BNP 640. ASSESSMENT AND PLAN: Ms. Branham is an 83-year-old woman with history off cardiomyopathy, abdominal aortic aneurysm post repair, reduced LVEF nor in the past gradually and progressively decreasing 10% to 15%. She has passed out and she is being evaluated in the hospital by Dr. Ritter. I was consulted for consideration of implantable cardioverter-defibrillator implant. We had a long discussion about the potential etiology of her syncopal spell, although it could be clearly orthostatic, but also medical arrhythmias could play a role. She is clearly at risk for future ventricular arrhythmias as well. She could be considered for implantable cardioverter-defibrillator implant after optimization of her volume status. I have discussed this further with Dr. March. No furhter revascularisation is planned. We may or may not be performing the procedure on Thursday. Her step-grandson -who actually also has a defibrillator in place, therefore has insight to the procedure - is in the room and we had a long discussion about the defibrillator therapy, We also discussed the cons including potential for infections in the future, as well as her advanced age, which reduces the potential for the number of life years saved by this device. She is agreeable. We will follow with you. Thank you for allowing me to participate in care this patient. Job ID: [id number] [facility]
[2019-02-16] MEDS: cefTRIAXone\\ROCEPHIN 1 GM in Sodium Chloride 0.9% 100 ML IVPB SCH (22:51)
[2019-02-17] MEDS: Albuterol Sulfate 2.5 mg/3 ml Neb NEB SCH ×4 (00:21→19:07)
[2019-02-17] MEDS: Carvedilol 3.125 MG TAB PO SCH ×2 (09:06→16:18)
[2019-02-17] MEDS: Gabapentin 100 MG CAP PO SCH ×3 (09:07→20:38)
[2019-02-17] MEDS: predniSONE 20 MG TAB PO SCH (09:07)
[2019-02-17] MEDS: Stress 600 With Zinc 1 TAB PO SCH (09:07)
[2019-02-17] MEDS: Potassium Chloride 20 MEQ TAB PO SCH (09:07)
--- NOTE | 2019-02-17 13:30 | PRG ---
DATE OF SERVICE: 02/17/2019 I am seeing in room 251 at [place]. She has been afebrile. Vital signs are stable. O2 saturation is good on nasal cannula. She was seen by the dysrhythmia group and I think she is going to have a pacemaker/defibrillator placed tomorrow, so she will not be leaving the hospital in the too near future. Her microbiology showing a Pseudomonas, which is over 100,000 counts that is intermediately sensitive to Zosyn and to levofloxacin. She also has some corynebacterium in very low counts. Her catheter has been draining well and she seems to be comfortable with that in. She has had good urine output. She has no new lab today. She is currently on Rocephin and that should cover the Pseudomonas that appears is sensitive to third generation cephalosporins. She certainly clinically has improved. So the plan at this time will be leave [place] and await further finished further cardiovascular procedure tomorrow. She will probably go home and looks like oral Cipro. If she is not allergic to it, that would cover this and I will recheck on her tomorrow. Job ID: [id number]
--- NOTE | 2019-02-17 16:54 | PDOC.HOSPP ---
- Subjective Encounter Date: 02/17/19 Encounter Time: 10:20 Subjective: Ms. Branham was seen today in follow-up of syncope and UTI. She appears very weak. She does not have any new complaints. - Objective Vital Signs & Weight: Vital Signs (12 hours) Temp Pulse Resp BP Pulse Ox 02/17/19 15:47 98.6 F 73 18 110/56 L 98 02/17/19 13:51 64 18 98 02/17/19 11:50 98.2 F 70 18 96/51 L 94 L 02/17/19 07:59 98.7 F 68 18 128/58 L 96 02/17/19 06:52 99 02/17/19 06:50 60 16 99 Weight Weight 144 lb 8 oz I&O: 02/16/19 02/17/19 02/18/19 06:59 06:59 06:59 Intake Total 1125 1175 Output Total 700 800 Balance 425 375 Result Diagrams: 02/15/19 05:06 02/15/19 05:06 ROS - Medication Medications: Active Medications Generic Name Dose Route Start Last Admin Trade Name Freq PRN Reason Stop Dose Admin Acetaminophen 650 mg 02/14/19 22:42 02/15/19 12:21 Tylenol PO 650 mg Q4H PRN Administration Headache/Fever/Mild Pain (1-3) Albuterol Sulfate 2.5 mg 02/15/19 07:00 02/17/19 13:51 Ventolin NEB 2.5 mg [id number] DONNY Administration Carvedilol 3.125 mg 02/16/19 17:00 02/17/19 16:18 Coreg PO 3.125 mg BID-WM DONNY Administration Gabapentin 100 mg 02/15/19 09:00 02/17/19 16:18 Neurontin PO 100 mg TID DONNY Administration Multivitamins/Zinc 1 tab 02/15/19 09:00 02/17/19 09:07 Stress 600 With Zinc PO 1 tab DAILY DONNY Administration Ondansetron HCl 4 mg 02/14/19 22:42 02/15/19 12:21 Zofran Odt PO 4 mg Q6H PRN Administration Nausea/Vomiting Potassium Chloride 20 meq 02/15/19 09:00 02/17/19 09:07 K-Dur PO 20 meq DAILY DONNY Administration Prednisone 40 mg 02/15/19 08:00 02/17/19 09:07 Prednisone PO 40 mg QAM-WM DONNY Administration Sodium Chloride 10 ml 02/16/19 21:00 02/17/19 09:06 Flush - Normal Saline IVF 10 ml Q12HR DONNY Administration - Exam Eye: PERRL, anicteric sclera Heart: RRR, no murmur, no gallops, no rubs, normal peripheral pulses Respiratory: CTAB, no wheezes, no rales, no ronchi, normal chest expansion Gastrointestinal: soft, non-tender, non-distended, normal bowel sounds, no palpable masses, no hepatomegaly, no splenomegaly Extremities: no cyanosis, no clubbing (1-2 + pitting edema in both lowerextremities), 1+ LE edema Hosp A/P (1) Syncope Code(s): R55 - SYNCOPE AND COLLAPSE Status: Acute (2) Muscular deconditioning Code(s): R29.898 - OTH SYMPTOMS AND SIGNS INVOLVING THE MUSCULOSKELETAL SYSTEM Status: Chronic (3) CAD (coronary artery disease) Code(s): I25.10 - ATHSCL HEART DISEASE OF [place] CORONARY ARTERY W/O ANG PCTRS Status: Chronic Qualifiers: Coronary Disease-Associated Artery/Lesion type: [place] artery [place] vs. transplanted heart: [place] heart Associated angina: with stable angina Qualified Code(s): I25.118 - Atherosclerotic heart disease of [place] coronary artery with other forms of angina pectoris (4) Chronic systolic heart failure Code(s): I50.22 - CHRONIC SYSTOLIC (CONGESTIVE) HEART FAILURE Status: Chronic (5) Hypertension Code(s): I10 - ESSENTIAL (PRIMARY) HYPERTENSION Status: Chronic Qualifiers: Hypertension type: essential hypertension (6) Complicated UTI (urinary tract infection) Code(s): N39.0 - URINARY TRACT INFECTION, SITE NOT SPECIFIED Status: Acute (7) Urinary retention Code(s): R33.9 - RETENTION OF URINE, UNSPECIFIED Status: Chronic - Plan * Syncope- likely orthostatic- however she is at risk for a malignant arrhythmia given her low EF. * Acute on chronic systolic heart failure- her EF is now 15-20%- plan is for defibrillator placement * Complicated UTI- urine culture is growing Pseudomonas- this is sensitive to Quinolones- will transition her to Cipro with renal dosing * HTN- blood pressure is stable
--- NOTE | 2019-02-17 18:03 | PRG ---
DATE OF SERVICE: SUBJECTIVE: Ms. Branham was seen and evaluated by Dr. Yelena Neri yesterday. She recently presented with syncope. Ms. Branham has had a low LVEF. Her most recent echo suggested an LVEF of 15% to 20%. She has been seen and evaluated in the past. In the past, she and her family have opted for conservative therapy. OBJECTIVE: GENERAL: Patient is a pleasant female, who is in no acute distress. The patient appears their stated age. VITAL SIGNS: Blood pressure 110/56, pulse 72, temperature 98.6. NEUROLOGIC: The patient is alert and oriented x3 with no focal neurologic deficits. HEENT: Sclerae without icterus. Mouth has moist mucous membranes with normal pallor. NECK: No JVD. Carotid upstroke brisk. No bruits bilaterally. LUNGS: Clear to auscultation with unlabored respirations. BACK: No scoliosis or kyphosis. CARDIAC: Regular rate and rhythm with normal S1 and S2. No S3 or S4 noted. No significant rubs, murmurs, thrills, or gallops noted throughout the precordium. PMI is not displaced. There is no parasternal heave. ABDOMEN: Soft, nontender, nondistended. No peritoneal signs present. No hepatosplenomegaly. No abnormal striae. EXTREMITIES: 2+ femoral and 2+ dorsalis pedis pulses. No cyanosis, clubbing, or edema. SKIN: No gross abnormalities. PERTINENT LABORATORY DATA: Hemoglobin 9.3. Creatinine 2.0. Troponin negative. BNP of 640. IMPRESSION: 1. Syncope. 2. Cardiomyopathy of unknown etiology. RECOMMENDATION: I had a long discussion with Ms. Branham. I visited with her in two separate occasions. We discussed proceeding with coronary angiography with risk of contrast nephropathy versus ICD placement. Her LVEF has been diminished over the last greater than three months. After discussing risks and benefits of both, she has opted for conservative therapy from a coronary anatomy standpoint and opted for a prophylactic ICD. We would certainly agree. I did discuss the case with Dr. Verduzco, who also agrees. This will be performed tomorrow. Otherwise, we will continue with carvedilol, low-dose aspirin. PILAR inhibitor therapy and ARB are contraindicated due to renal insufficiency. Job ID: [id number]
[2019-02-17] MEDS: diphenhydrAMINE 25 MG CAP PO SCH ×2 (18:35→23:33)
[2019-02-17] MEDS: predniSONE 50 MG TAB PO SCH ×2 (18:36→23:34)
[2019-02-17] MEDS: Ciprofloxacin Lactate/D5W 200 MG in Premix Bag 1 BAG IVPB SCH (20:37)
[2019-02-18] MEDS: Albuterol Sulfate 2.5 mg/3 ml Neb NEB SCH ×4 (01:50→18:49)
[2019-02-18] MEDS: predniSONE 50 MG TAB PO SCH ×3 (05:22→19:30)
[2019-02-18] MEDS: Carvedilol 3.125 MG TAB PO SCH ×3 (05:22→18:49)
[2019-02-18] MEDS: diphenhydrAMINE 25 MG CAP PO SCH ×3 (05:22→19:29)
[2019-02-18] MEDS: Gabapentin 100 MG CAP PO SCH ×3 (08:25→20:01)
[2019-02-18] MEDS: Stress 600 With Zinc 1 TAB PO SCH (08:25)
[2019-02-18] MEDS: Potassium Chloride 20 MEQ TAB PO SCH (08:25)
[2019-02-18] MEDS: predniSONE 20 MG TAB PO SCH (08:26)
[2019-02-18] MEDS: Ciprofloxacin Lactate/D5W 200 MG in Premix Bag 1 BAG IVPB SCH ×2 (08:26→19:59)
--- NOTE | 2019-02-18 09:39 | PRG ---
DATE OF SERVICE: 02/18/2019 SUBJECTIVE: Ms. Branham is doing well. No current complaints. OBJECTIVE: VITAL SIGNS: Blood pressure , pulse 56, and temperature 97.5. LUNGS: Clear to auscultation. HEART: Regular rate and rhythm. ABDOMEN: Soft, nontender, nondistended. EXTREMITIES: No edema. PERTINENT LABORATORY DATA: Hemoglobin 9.3. Creatinine 2.0 with a GFR of 24. IMPRESSION: 1. Cardiomyopathy of unknown etiology. 2. Recent syncope. RECOMMENDATIONS: Ms. Branham is opted to proceed with ICD placement. She is not interested in proceeding with coronary angiography. I would certainly agree given her comorbidities. She likely has underlying coronary artery disease. From my standpoint, will be okay for discharge when okay with EP. She appears stable. She is currently on carvedilol. ARB and PILAR inhibitor therapy are contraindicated due to her renal insufficiency. We will continue low-dose aspirin . Job ID: [id number]
--- NOTE | 2019-02-18 10:11 | PRG ---
DATE OF SERVICE: 02/17/2019 SUBJECTIVE: Ms. Branham seems to be doing well. No new symptoms noted. OBJECTIVE: VITAL SIGNS: Blood pressure 110/56, heart rate 73, respirations 18 , temperature 98.6 degrees fahrenheit. GENERAL: Alert and oriented woman, in no apparent distress. NECK: Supple. Jugular veins not distended. CHEST: Coarse without crackles. HEART: Heart sounds are regular rate and rhythm. No murmur or gallop. ABDOMEN: Benign. Bowel sounds positive. EXTREMITIES: Lower extremities without edema, clubbing, or cyanosis. DATABASE: Telemetry strips reveal sinus rhythm, no significant arrhythmias. ASSESSMENT AND PLAN: Ms. Branham is a pleasant 83-year-old woman with history of congestive heart failure and cardiomyopathy, likely nonischemic, albeit no recent workup was done. She has reduced LVEF and at risk for possible ventricular arrhythmias in the future. We discussed the role of implantable cardioverter-defibrillator therapy. I will discuss with Dr. March. At this point, no further plans for revascularistaion . The patient declined these options. On the other hand, she is at risk for a future ventricular arrhythmias given though her advanced age, AICD implantation could be done and she prefers that, likely we will make arrangements. We discussed pros and cons of the procedure and she understands and agreeable. Job ID: [id number] [facility]
[2019-02-18 10:27] LABS: #Basophils 0.1 thou/uL (0.0-0.2); #Eosinphils 0.1 thou/uL (0.0-0.7); #Monocytes 0.1 thou/uL (0.11-0.59); #Neutrophils 7.9 thou/uL (1.40-6.50); %Basophils 0.8 % (0.0-1.0); %Eosinophils 1.1 % (0.0-10.0); %Monocytes 0.8 % (0.0-10.0); %Neutrophils 86.4 % (42.0-75.0); Hemoglobin 10.7 g/dL (12.0-16.0); Mean Corpuscular HGB CONC 30.4 g/dL (32.0-36.0); Mean Corpuscular Hemoglobin 26.6 pg (27.0-31.0); Mean Corpuscular Volume 87.3 fL (78.0-98.0); Mean Platelet Volume 7.2 fL (7.4-10.4); Platelet Count 276 thou/uL (130-400); RBC Distribution Width 14.9 % (11.5-14.5); Red Blood Cell (RBC) Count 4.04 mill/uL (4.20-5.40); White Blood Cell (WBC) Count 9.1 thou/uL (4.8-10.8)
[2019-02-18 10:31] LABS: PTT 23.6 SEC (22.9-36.1); Prothrombin Time 12.7 SEC (12.0-14.7)
[2019-02-18 10:48] LABS: Anion Gap 12 mmol/L (10-20); BUN (Urea Nitrogen) 33 mg/dL (9.8-20.1); Calc. Creatinine Clearance 26 mL/min (70-130); Calcium 8.6 mg/dL (7.8-10.44); Carbon Dioxide 25 mmol/L (23-31); Chloride 102 mmol/L (98-107); Estimated GFR-MDRD 29; Glucose 137 mg/dL (83-110); Potassium 5.2 mmol/L (3.5-5.1); Sodium 134 mmol/L (136-145)
--- NOTE | 2019-02-18 14:32 | PRG ---
DATE OF SERVICE: 02/18/2019 I have seen this patient today in room 251. She is scheduled to go for a procedure by the doctor lookback coordinator today and she has not gone yet. Her vital signs are stable. Her O2 saturation is good. Urine output is good. She is growing out organisms [facility] She is comfortable with the catheter in. We will plan on leaving this catheter in. I think her home health nurse at home should change it every 3 to 4 weeks or she can come to my office for it to be changed. I think home health could do this for her. I am not around this weekend. If urologist is needed, Dr. Zonia Holden is covering for me. She needs to see this patient over the weekend. If she is still here on Thursday, I will check to see how she is doing. Job ID: [id number]
--- NOTE | 2019-02-18 14:37 | PDOC.HOSPP ---
- Subjective Encounter Date: 02/18/19 Encounter Time: 10:00 Subjective: Ms. Branham was seen today in follow-up of syncope. She does not have any complaints. - Objective Vital Signs & Weight: Vital Signs (12 hours) Temp Pulse Resp BP Pulse Ox 02/18/19 11:34 98.3 F 57 L 18 122/58 L 99 02/18/19 07:36 97.5 F L 56 L 18 120/55 L 100 02/18/19 06:49 100 02/18/19 06:47 55 L 16 02/18/19 03:11 97 F L 62 20 132/70 100 Weight Weight 147 lb I&O: 02/17/19 02/18/19 02/19/19 06:59 06:59 06:59 Intake Total 1175 1430 Output Total 800 1250 Balance 375 180 Result Diagrams: 02/18/19 10:17 02/18/19 10:17 ROS - Medication Medications: Active Medications Generic Name Dose Route Start Last Admin Trade Name Freq PRN Reason Stop Dose Admin Acetaminophen 650 mg 02/14/19 22:42 02/15/19 12:21 Tylenol PO 650 mg Q4H PRN Administration Headache/Fever/Mild Pain (1-3) Albuterol Sulfate 2.5 mg 02/15/19 07:00 02/18/19 06:47 Ventolin NEB 2.5 mg [id number] DONNY Administration Carvedilol 3.125 mg 02/16/19 17:00 02/18/19 05:22 Coreg PO 3.125 mg BID-WM DONNY Administration Diphenhydramine HCl 25 mg 02/17/19 18:00 02/18/19 13:12 Benadryl PO 25 mg Q6HR DONNY Administration Gabapentin 100 mg 02/15/19 09:00 02/18/19 08:25 Neurontin PO 100 mg TID DONNY Administration Ciprofloxacin/Dextrose 200 mg/ 100 mls @ 100 mls/hr 02/17/19 21:00 02/18/19 08:26 Device IVPB 100 mls Q12HR DONNY Administration Multivitamins/Zinc 1 tab 02/15/19 09:00 02/18/19 08:25 Stress 600 With Zinc PO 1 tab DAILY DONNY Administration Ondansetron HCl 4 mg 02/14/19 22:42 02/15/19 12:21 Zofran Odt PO 4 mg Q6H PRN Administration Nausea/Vomiting Pantoprazole Sodium 20 mg 02/17/19 18:00 02/18/19 13:12 Protonix PO Not Given Q6HR DONNY Potassium Chloride 20 meq 02/15/19 09:00 02/18/19 08:25 K-Dur PO 20 meq DAILY DONNY Administration Prednisone 40 mg 02/15/19 08:00 02/18/19 08:26 Prednisone PO Not Given QAM-WM DONNY Prednisone 50 mg 02/17/19 18:00 02/18/19 13:13 Prednisone PO 50 mg Q6HR DONNY Administration Sodium Chloride 10 ml 02/16/19 21:00 02/18/19 08:26 Flush - Normal Saline IVF 10 ml Q12HR DONNY Administration - Exam Eye: PERRL, anicteric sclera Heart: RRR, no murmur, no gallops, no rubs, normal peripheral pulses Respiratory: CTAB, no wheezes, no rales, no ronchi, normal chest expansion Gastrointestinal: soft, non-tender, non-distended, normal bowel sounds Extremities: no cyanosis, no clubbing (trace pedal edema), 1+ LE edema Musculoskeletal: diffuse muscle atrophy (Atrophy of both lower extremities, with bilateral weakness) Hosp A/P (1) Syncope Code(s): R55 - SYNCOPE AND COLLAPSE Status: Acute (2) Muscular deconditioning Code(s): R29.898 - OTH SYMPTOMS AND SIGNS INVOLVING THE MUSCULOSKELETAL SYSTEM Status: Chronic (3) CAD (coronary artery disease) Code(s): I25.10 - ATHSCL HEART DISEASE OF [place] CORONARY ARTERY W/O ANG PCTRS Status: Chronic Qualifiers: Coronary Disease-Associated Artery/Lesion type: [place] artery [place] vs. transplanted heart: [place] heart Associated angina: with stable angina Qualified Code(s): I25.118 - Atherosclerotic heart disease of [place] coronary artery with other forms of angina pectoris (4) Chronic systolic heart failure Code(s): I50.22 - CHRONIC SYSTOLIC (CONGESTIVE) HEART FAILURE Status: Chronic (5) Hypertension Code(s): I10 - ESSENTIAL (PRIMARY) HYPERTENSION Status: Chronic Qualifiers: Hypertension type: essential hypertension (6) Complicated UTI (urinary tract infection) Code(s): N39.0 - URINARY TRACT INFECTION, SITE NOT SPECIFIED Status: Acute (7) Urinary retention Code(s): R33.9 - RETENTION OF URINE, UNSPECIFIED Status: Chronic - Plan * Syncope- likely due to Orthostatic hypotension * Acute on chronic systolic heart failure- her EF is now 15-20%- plan is for defibrillator placement today * Complicated UTI- urine culture is growing Pseudomonas- this is sensitive to Quinolones- will continue Cipro with renal dosing, and switch to oral at discharge * HTN- blood pressure is stable
[2019-02-18] MEDS ORDERED: Iopamidol 370 76% 50 ML VIAL FS ONE (15:40)
[2019-02-18] MEDS ORDERED: Clindamycin/D5W 600 mg/50 ml Premix Bag ONE (16:09)
[2019-02-18] MEDS ORDERED: Fentanyl 100 MCG/2 ML VIAL ONE (16:18)
[2019-02-18] MEDS ORDERED: Levofloxacin 500 mg/D5W 100 ml Premix Bag ONE (16:18)
[2019-02-18] MEDS ORDERED: Promethazine HCl 25 MG/ML VIAL SLOW IVP PRN (17:50)
[2019-02-18] MEDS ORDERED: Ondansetron HCl/PF 4 MG/2 ML Vial IVP PRN (17:50)
[2019-02-18] MEDS ORDERED: Promethazine HCl 25 MG/ML VIAL IM PRN (17:50)
[2019-02-18] MEDS ORDERED: Albuterol Sulfate 2.5 mg/3 ml Neb NEB SCH (18:00)
[2019-02-18] MEDS ORDERED: Acetaminophen/Codeine 30-300mg Tablet PO PRN (18:30)
--- NOTE | 2019-02-18 18:45 | RAD ---
XR Chest 1 View History: ICD Comparison: Chest radiograph February 14, 2019 Findings: Heart size is enlarged. Similar appearance of the mid thoracic aortic aneurysm. IVC filter is in place. No pneumothorax. Impression: Uncomplicated ICD placement.
[2019-02-18] MEDS: Cephalexin 250 MG CAP PO SCH (20:01)
[2019-02-19] MEDS: Albuterol Sulfate 2.5 mg/3 ml Neb NEB SCH ×4 (00:56→18:45)
[2019-02-19] MEDS: predniSONE 20 MG TAB PO SCH (08:29)
[2019-02-19] MEDS: Cephalexin 250 MG CAP PO SCH ×4 (08:29→20:50)
[2019-02-19] MEDS: Stress 600 With Zinc 1 TAB PO SCH (08:29)
[2019-02-19] MEDS: Potassium Chloride 20 MEQ TAB PO SCH (08:29)
[2019-02-19] MEDS: Gabapentin 100 MG CAP PO SCH ×3 (08:30→20:50)
[2019-02-19] MEDS: Ciprofloxacin Lactate/D5W 200 MG in Premix Bag 1 BAG IVPB SCH ×2 (08:30→20:55)
[2019-02-19] MEDS: Carvedilol 3.125 MG TAB PO SCH ×2 (08:30→17:18)
[2019-02-19] MEDS ORDERED: Polyethylene Glycol 3350 17 GM Packet PO SCH (13:15)
--- NOTE | 2019-02-19 16:16 | PDOC.CTH ---
Cardiology Progress Note - Subjective No new issues. ICD site looks without issues. - Objective Vital Signs Temp Pulse Resp BP Pulse Ox 02/19/19 15:18 97.5 F L 61 18 105/74 96 02/19/19 13:31 61 16 02/19/19 12:00 97.9 F 61 20 110/60 98 02/19/19 08:00 97.6 F 75 24 H 125/83 96 02/19/19 07:16 65 12 Weight 147 lb 14.4 oz 02/18/19 02/19/19 02/20/19 06:59 06:59 06:59 Intake Total 1430 600 800 Output Total 1250 1305 Balance 180 -705 800 - Physical Examination General/Neuro: NAD Neck: no JVD present Lungs: CTA, unlabored respirations Heart: RRR Abdomen: NT/ND Extremities: other: (no edema) - Telemetry Telemetry Rhythm: NSR - Labs Result Diagrams: 02/18/19 10:17 02/18/19 10:17 Troponin/CKMB CK-MB (CK-2) 1.2 ng/mL (0-6.6) 02/14/19 15:21 Troponin I 0.022 ng/mL (< 0.028) 02/14/19 20:36 - Assessment/Plan 1. Dilated cardiomyopathy 2. Syncope 3. S/P AICD placement. PLAN: - Normal CXR and unremarkable ICD site. - On BB only, BP too low to tolerate ACEI. - May discharge home any time from cardiac perspective. - Follow up with Dr. March in 1 month. - Will sign off, please call with any questions.
--- NOTE | 2019-02-19 18:47 | PDOC.HOSPP ---
- Subjective Encounter Date: 02/19/19 Encounter Time: 11:30 Subjective: Ms. Branham was seen today in follow-up of syncope. she does not have any complaints other than she has not had a bowel movement in 5 days. - Objective Vital Signs & Weight: Vital Signs (12 hours) Temp Pulse Resp BP Pulse Ox 02/19/19 15:18 97.5 F L 61 18 105/74 96 02/19/19 13:31 61 16 02/19/19 12:00 97.9 F 61 20 110/60 98 02/19/19 08:00 97.6 F 75 24 H 125/83 96 02/19/19 07:16 65 12 Weight Weight 147 lb 14.4 oz I&O: 02/18/19 02/19/19 02/20/19 06:59 06:59 06:59 Intake Total 9701 740 0897 Output Total 1250 1305 210 Balance 180 -705 830 Result Diagrams: 02/18/19 10:17 02/18/19 10:17 ROS - Medication Medications: Active Medications Generic Name Dose Route Start Last Admin Trade Name Freq PRN Reason Stop Dose Admin Acetaminophen 650 mg 02/14/19 22:42 02/15/19 12:21 Tylenol PO 650 mg Q4H PRN Administration Headache/Fever/Mild Pain (1-3) Albuterol Sulfate 2.5 mg 02/15/19 07:00 02/19/19 13:31 Ventolin NEB 2.5 mg [id number] DONNY Administration Carvedilol 3.125 mg 02/16/19 17:00 02/19/19 17:18 Coreg PO 3.125 mg BID-WM DONNY Administration Cephalexin 250 mg 02/18/19 21:00 02/19/19 17:18 Keflex PO 02/25/19 17:01 250 mg QID DONNY Administration Gabapentin 100 mg 02/15/19 09:00 02/19/19 14:49 Neurontin PO 100 mg TID DONNY Administration Ciprofloxacin/Dextrose 200 mg/ 100 mls @ 100 mls/hr 02/17/19 21:00 02/19/19 08:30 Device IVPB 100 mls Q12HR DONNY Administration Multivitamins/Zinc 1 tab 02/15/19 09:00 02/19/19 08:29 Stress 600 With Zinc PO 1 tab DAILY DONNY Administration Ondansetron HCl 4 mg 02/14/19 22:42 02/15/19 12:21 Zofran Odt PO 4 mg Q6H PRN Administration Nausea/Vomiting Potassium Chloride 20 meq 02/15/19 09:00 02/19/19 08:29 K-Dur PO 20 meq DAILY DONNY Administration Prednisone 40 mg 02/15/19 08:00 02/19/19 08:29 Prednisone PO 40 mg QAM-WM DONNY Administration Sodium Chloride 10 ml 02/16/19 21:00 02/19/19 08:30 Flush - Normal Saline IVF 10 ml Q12HR DONNY Administration - Exam Eye: PERRL, anicteric sclera Heart: RRR, no gallops, no rubs, murmur present, II/IV Respiratory: CTAB, no wheezes, no rales, no ronchi, normal chest expansion, no tachypnea, normal percussion Gastrointestinal: soft, non-tender, non-distended, normal bowel sounds, no palpable masses, no hepatomegaly Extremities: no cyanosis, no clubbing, no edema Hosp A/P (1) Syncope Code(s): R55 - SYNCOPE AND COLLAPSE Status: Acute (2) Muscular deconditioning Code(s): R29.898 - OTH SYMPTOMS AND SIGNS INVOLVING THE MUSCULOSKELETAL SYSTEM Status: Chronic (3) CAD (coronary artery disease) Code(s): I25.10 - ATHSCL HEART DISEASE OF [place] CORONARY ARTERY W/O ANG PCTRS Status: Chronic Qualifiers: Coronary Disease-Associated Artery/Lesion type: [place] artery [place] vs. transplanted heart: [place] heart Associated angina: with stable angina Qualified Code(s): I25.118 - Atherosclerotic heart disease of [place] coronary artery with other forms of angina pectoris (4) Chronic systolic heart failure Code(s): I50.22 - CHRONIC SYSTOLIC (CONGESTIVE) HEART FAILURE Status: Chronic (5) Hypertension Code(s): I10 - ESSENTIAL (PRIMARY) HYPERTENSION Status: Chronic Qualifiers: Hypertension type: essential hypertension (6) Complicated UTI (urinary tract infection) Code(s): N39.0 - URINARY TRACT INFECTION, SITE NOT SPECIFIED Status: Acute (7) Urinary retention Code(s): R33.9 - RETENTION OF URINE, UNSPECIFIED Status: Chronic - Plan * Syncope- likely due to Orthostatic hypotension * Acute on chronic systolic heart failure- She is s/p defibrillator placement * Complicated UTI- urine culture is growing Pseudomonas- this is sensitive to Quinolones- will change to oral Cipro * Constipation- will add a stool softener, and Miralax * HTN- blood pressure is stable * She is not interested in [facility] or Home Health, I anticipate she may be ready for discharge tomorrow
[2019-02-19] MEDS: Docusate 100 MG CAP PO SCH (20:50)
[2019-02-19] MEDS: Acetaminophen/Codeine 30-300mg Tablet PO PRN (20:54)
[2019-02-20] MEDS: Albuterol Sulfate 2.5 mg/3 ml Neb NEB SCH ×4 (00:34→18:37)
[2019-02-20] MEDS: Cephalexin 250 MG CAP PO SCH ×4 (09:41→20:37)
[2019-02-20] MEDS: Carvedilol 3.125 MG TAB PO SCH ×2 (09:41→16:01)
[2019-02-20] MEDS: predniSONE 20 MG TAB PO SCH (09:41)
[2019-02-20] MEDS: Potassium Chloride 20 MEQ TAB PO SCH (09:41)
[2019-02-20] MEDS: Docusate 100 MG CAP PO SCH ×2 (09:42→20:38)
[2019-02-20] MEDS: Ciprofloxacin Lactate/D5W 200 MG in Premix Bag 1 BAG IVPB SCH ×2 (09:42→20:37)
[2019-02-20] MEDS: Polyethylene Glycol 3350 17 GM Packet PO SCH (09:42)
[2019-02-20] MEDS: Stress 600 With Zinc 1 TAB PO SCH (09:42)
[2019-02-20] MEDS: Gabapentin 100 MG CAP PO SCH ×3 (09:42→20:38)
--- NOTE | 2019-02-20 16:30 | PDOC.HOSPP ---
- Subjective Encounter Date: 02/20/19 Encounter Time: 16:20 Subjective: f/u complicated UTI with Pseudomonas spp on Cipro IV. Feels ok overall. Remains on O2 @ 3L/min NC which is baseline. Non-ambulatory at baseline. - Objective Vital Signs & Weight: Vital Signs (12 hours) Temp Pulse Resp BP Pulse Ox 02/20/19 16:00 98.6 F 67 16 115/69 97 02/20/19 13:27 78 14 100 02/20/19 12:00 98.2 F 73 16 102/58 L 97 02/20/19 08:00 97.6 F 61 14 106/51 L 100 02/20/19 06:37 66 12 98 Weight Weight 152 lb 4.8 oz I&O: 02/19/19 02/20/19 02/21/19 06:59 06:59 06:59 Intake Total 600 1140 480 Output Total 1305 860 Balance -705 280 480 Result Diagrams: 02/18/19 10:17 02/18/19 10:17 EKG Reviewed by me: Yes (Tele - SR) ROS - Medication Medications: Active Medications Generic Name Dose Route Start Last Admin Trade Name Freq PRN Reason Stop Dose Admin Acetaminophen 650 mg 02/14/19 22:42 02/15/19 12:21 Tylenol PO 650 mg Q4H PRN Administration Headache/Fever/Mild Pain (1-3) Acetaminophen/Codeine Phosphate 1 tab 02/18/19 18:30 02/19/19 20:54 Tylenol #3 PO 1 tab Q4H PRN Administration Mild Pain (1-3) Albuterol Sulfate 2.5 mg 02/15/19 07:00 02/20/19 13:27 Ventolin NEB 2.5 mg [id number] DONNY Administration Carvedilol 3.125 mg 02/16/19 17:00 02/20/19 16:01 Coreg PO 3.125 mg BID-WM DONNY Administration Cephalexin 250 mg 02/18/19 21:00 02/20/19 16:01 Keflex PO 02/25/19 17:01 250 mg QID DONNY Administration Docusate Sodium 100 mg 02/19/19 21:00 02/20/19 09:42 Colace PO 100 mg BID DONNY Administration Gabapentin 100 mg 02/15/19 09:00 02/20/19 16:01 Neurontin PO 100 mg TID DONNY Administration Ciprofloxacin/Dextrose 200 mg/ 100 mls @ 100 mls/hr 02/19/19 21:00 02/20/19 09:42 Device IVPB 100 mls Q12HR DONNY Administration Multivitamins/Zinc 1 tab 02/15/19 09:00 02/20/19 09:42 Stress 600 With Zinc PO 1 tab DAILY DONNY Administration Ondansetron HCl 4 mg 02/14/19 22:42 02/15/19 12:21 Zofran Odt PO 4 mg Q6H PRN Administration Nausea/Vomiting Polyethylene Glycol 17 gm 02/20/19 09:00 02/20/19 09:42 Miralax PO 17 gm DAILY DONNY Administration Potassium Chloride 20 meq 02/15/19 09:00 02/20/19 09:41 K-Dur PO 20 meq DAILY DONNY Administration Prednisone 40 mg 02/15/19 08:00 02/20/19 09:41 Prednisone PO 40 mg QAM-WM DONNY Administration Sodium Chloride 10 ml 02/16/19 21:00 02/20/19 09:42 Flush - Normal Saline IVF 10 ml Q12HR DONNY Administration - Exam NAD, awake alert Eye: PERRL, anicteric sclera ENT: normocephalic atraumatic, no oropharyngeal lesions Neck: supple, symmetric, no JVD, no thyromegaly Heart: RRR, no gallops, no rubs Heart - other findings: II/ ELIZ RUSB Respiratory: no wheezes, no ronchi Respiratory - other findings: Diminished bilat in bases Gastrointestinal: soft, non-tender, non-distended, normal bowel sounds, no palpable masses Extremities: no cyanosis, no edema Skin: normal turgor, no lesions Neurological: CN's grossly intact, no new deficit Musculoskeletal: normal tone, generalized weakness Psychiatric: A&O x 3 Hosp A/P (1) Complicated UTI (urinary tract infection) Code(s): N39.0 - URINARY TRACT INFECTION, SITE NOT SPECIFIED Status: Acute Plan: Pseudomonas spp, continue Cipro IV another 24h then convert to po (2) Syncope Code(s): R55 - SYNCOPE AND COLLAPSE Status: Acute Plan: Likely cardiogenic, s/p AICD placement (3) Acute and chronic respiratory failure with hypoxia Code(s): J96.21 - ACUTE AND CHRONIC RESPIRATORY FAILURE WITH HYPOXIA Status: Acute Plan: Baseline O2 @ 3L/min NC (4) Acute on chronic systolic (congestive) heart failure Code(s): I50.23 - ACUTE ON CHRONIC SYSTOLIC (CONGESTIVE) HEART FAILURE Status : Acute Plan: EF 15%, s/p AICD (5) Acute renal failure superimposed on stage 3 chronic kidney disease Code(s): N17.9 - ACUTE KIDNEY FAILURE, UNSPECIFIED; N18.3 - CHRONIC KIDNEY DISEASE, STAGE 3 (MODERATE) Status: Acute Plan: Improved, avoid nephrotoxic meds and limit contrast exposure (6) Obstructive uropathy Code(s): N13.9 - OBSTRUCTIVE AND REFLUX UROPATHY, UNSPECIFIED Status: Chronic Plan: Continue L internal ureteral stent and R nephrostomy tube (7) Cardiomyopathy Code(s): I42.9 - CARDIOMYOPATHY, UNSPECIFIED Status: Chronic Plan: s/p AICD, stable, continue beta-nitish therapy, no PILAR-i due to hypotension - Plan plan discussed w/ family, continue antibiotics, PT/OT, social media executive, DVT proph w/SCDs Stable currently Continue Ciprofloxacin IV another 24h Continue O2 support Continue Prednisone 40mg daily AM lab: BMP Home in am 02/21/19
[2019-02-20] MEDS: Acetaminophen/Codeine 30-300mg Tablet PO PRN (20:38)
[2019-02-21] MEDS: Albuterol Sulfate 2.5 mg/3 ml Neb NEB SCH ×4 (01:08→18:29)
[2019-02-21 06:45] LABS: Anion Gap 9 mmol/L (10-20); BUN (Urea Nitrogen) 31 mg/dL (9.8-20.1); Calc. Creatinine Clearance 30 mL/min (70-130); Calcium 8.1 mg/dL (7.8-10.44); Carbon Dioxide 27 mmol/L (23-31); Chloride 102 mmol/L (98-107); Estimated GFR-MDRD 33; Glucose 75 mg/dL (83-110); Potassium 4.9 mmol/L (3.5-5.1); Sodium 133 mmol/L (136-145)
[2019-02-21] MEDS: Polyethylene Glycol 3350 17 GM Packet PO SCH (08:16)
[2019-02-21] MEDS: Stress 600 With Zinc 1 TAB PO SCH (08:16)
[2019-02-21] MEDS: Ciprofloxacin Lactate/D5W 200 MG in Premix Bag 1 BAG IVPB SCH ×2 (08:16→20:02)
[2019-02-21] MEDS: predniSONE 20 MG TAB PO SCH (08:17)
[2019-02-21] MEDS: Gabapentin 100 MG CAP PO SCH ×3 (08:17→20:03)
[2019-02-21] MEDS: Cephalexin 250 MG CAP PO SCH ×4 (08:17→20:03)
[2019-02-21] MEDS: Potassium Chloride 20 MEQ TAB PO SCH (08:17)
[2019-02-21] MEDS: Carvedilol 3.125 MG TAB PO SCH ×2 (08:17→16:31)
[2019-02-21] MEDS: Docusate 100 MG CAP PO SCH ×2 (08:18→20:02)
--- NOTE | 2019-02-21 09:53 | PDOC.HOSPP ---
- Subjective Encounter Date: 02/21/19 Encounter Time: 09:00 Subjective: f/u for complicated UTI on curret Cipro and s/p AICD for CM. Feels ok overall. No new complaints. Baseline O2 @ 3L/min NC. - Objective Vital Signs & Weight: Vital Signs (12 hours) Temp Pulse Resp BP Pulse Ox 02/21/19 07:35 98.2 F 74 20 110/53 L 95 02/21/19 06:40 94 L 02/21/19 06:39 73 16 94 L 02/21/19 03:24 97.6 F 65 20 108/52 L 98 02/21/19 01:08 63 14 98 02/21/19 00:00 18 Weight Weight 152 lb 2 oz I&O: 02/20/19 02/21/19 02/22/19 06:59 06:59 06:59 Intake Total 1140 950 240 Output Total 860 1350 Balance 280 -400 240 Result Diagrams: 02/18/19 10:17 02/21/19 05:57 Additional Labs: Microbiology 02/14/19 15:00 Urine childers catheter Urine Culture - Final Pseudomonas aeruginosa#2 Laboratory Tests 02/15/19 02/18/19 05:06 10:17 Potassium 4.1 5.2 H Creatinine 2.00 H 1.66 H EKG Reviewed by me: Yes (Tele - SR) ROS - Medication Medications: Active Medications Generic Name Dose Route Start Last Admin Trade Name Freq PRN Reason Stop Dose Admin Acetaminophen 650 mg 02/14/19 22:42 02/15/19 12:21 Tylenol PO 650 mg Q4H PRN Administration Headache/Fever/Mild Pain (1-3) Acetaminophen/Codeine Phosphate 1 tab 02/18/19 18:30 02/20/19 20:38 Tylenol #3 PO 1 tab Q4H PRN Administration Mild Pain (1-3) Albuterol Sulfate 2.5 mg 02/15/19 07:00 02/21/19 06:39 Ventolin NEB 2.5 mg [id number] DONNY Administration Carvedilol 3.125 mg 02/16/19 17:00 02/21/19 08:17 Coreg PO 3.125 mg BID-WM DONNY Administration Cephalexin 250 mg 02/18/19 21:00 02/21/19 08:17 Keflex PO 02/25/19 17:01 250 mg QID DONNY Administration Docusate Sodium 100 mg 02/19/19 21:00 02/21/19 08:18 Colace PO 100 mg BID DONNY Administration Gabapentin 100 mg 02/15/19 09:00 02/21/19 08:17 Neurontin PO 100 mg TID DONNY Administration Ciprofloxacin/Dextrose 200 mg/ 100 mls @ 100 mls/hr 02/19/19 21:00 02/21/19 08:16 Device IVPB 100 mls Q12HR DONNY Administration Multivitamins/Zinc 1 tab 02/15/19 09:00 02/21/19 08:16 Stress 600 With Zinc PO 1 tab DAILY DONNY Administration Ondansetron HCl 4 mg 02/14/19 22:42 02/15/19 12:21 Zofran Odt PO 4 mg Q6H PRN Administration Nausea/Vomiting Polyethylene Glycol 17 gm 02/20/19 09:00 02/21/19 08:16 Miralax PO 17 gm DAILY DONNY Administration Potassium Chloride 20 meq 02/15/19 09:00 02/21/19 08:17 K-Dur PO 20 meq DAILY DONNY Administration Prednisone 40 mg 02/15/19 08:00 02/21/19 08:17 Prednisone PO 40 mg QAM-WM DONNY Administration Sodium Chloride 10 ml 02/16/19 21:00 02/21/19 08:18 Flush - Normal Saline IVF 10 ml Q12HR DONNY Administration - Exam NAD, awake alert Eye: PERRL, anicteric sclera ENT: normocephalic atraumatic, no oropharyngeal lesions Neck: supple, symmetric, no JVD, no thyromegaly Heart: RRR, no gallops, no rubs, normal peripheral pulses Respiratory - other findings: diminished bilat, few scattered wheezes Gastrointestinal: soft, non-tender, non-distended, normal bowel sounds, no palpable masses Extremities: no clubbing, 1+ LE edema Skin: normal turgor, no lesions Neurological: CN's grossly intact, no new deficit Musculoskeletal: generalized weakness Psychiatric: normal affect, A&O x 3 Hosp A/P (1) Complicated UTI (urinary tract infection) Code(s): N39.0 - URINARY TRACT INFECTION, SITE NOT SPECIFIED Status: Acute Plan: Continue Ciprofloxacin IV another 24h, plan for exchange of L ureteral stent in am 02/21/19 (2) Syncope Code(s): R55 - SYNCOPE AND COLLAPSE Status: Acute Plan: Likely cardiogenic in addition to multifactorial process, s/p AICD (3) Acute and chronic respiratory failure with hypoxia Code(s): J96.21 - ACUTE AND CHRONIC RESPIRATORY FAILURE WITH HYPOXIA Status: Acute Plan: Back to baseline 3L/min NC (4) Acute on chronic systolic (congestive) heart failure Code(s): I50.23 - ACUTE ON CHRONIC SYSTOLIC (CONGESTIVE) HEART FAILURE Status : Acute Plan: Resume Lasix 40mg po daily, EF 15-20%, no PILAR-i due to hypotension (5) Acute renal failure superimposed on stage 3 chronic kidney disease Code(s): N17.9 - ACUTE KIDNEY FAILURE, UNSPECIFIED; N18.3 - CHRONIC KIDNEY DISEASE, STAGE 3 (MODERATE) Status: Acute Plan: Improved, back to baseline CKD (6) Obstructive uropathy Code(s): N13.9 - OBSTRUCTIVE AND REFLUX UROPATHY, UNSPECIFIED Status: Chronic Plan: Plan for L ureteral stent exchange 02/22/19 (7) Cardiomyopathy Code(s): I42.9 - CARDIOMYOPATHY, UNSPECIFIED Status: Chronic Plan: Contiue Coreg, Lasix, s/p AICD - Plan plan discussed w/ family, continue antibiotics, PT/OT, social media content specialist, respiratory therapy Stable currently Continue Ciprofloxacin IV another 24h Continue O2 support Continue Prednisone 40mg daily AM lab: BMP Likely home in 24h after ureteral stent exchange
[2019-02-21] MEDS: Acetaminophen/Codeine 30-300mg Tablet PO PRN (10:13)
--- NOTE | 2019-02-21 10:58 | PRG ---
DATE OF SERVICE: 02/21/2019 This patient has had stable vital signs. She has been afebrile over the weekend. She has been on Cipro over the weekend for a Pseudomonas species in the urine. There was a catheter and the urine is clear. I did review her last stent change and it has been in October, so this is actually a time for her change and it is a good time for the change where she has actually been treated with antibiotics for a few days now, so I talked with her about staying in the hospital one more night and tomorrow undergoing a cysto and removal and replacement of a left double-J stent. She is agreeable to this. I talked with her daughter. She is also agreeable for it also. She did have her right nephrostomy tube changed out in January at [facility], so she is not really due for that yet. So, we will make her n.p.o. after midnight tonight in preparation for this procedure tomorrow and keep her on her IV antibiotics for another day. Job ID: [id number]
--- NOTE | 2019-02-21 16:27 | PRG ---
DATE OF SERVICE: 02/21/2019 SUBJECTIVE: Ms. Branham is doing fair two days after ICD implant. No obvious complication. OBJECTIVE: VITAL SIGNS: Blood pressure 123/58, pulse 72, respirations 20, temperature 98 degrees Fahrenheit. GENERAL: Alert and oriented woman, in no apparent distress. NECK: Supple. Jugular veins not distended. CHEST: Coarse without crackles. HEART: Sounds are regular to rate and rhythm. Right precordial ICD insertion site is well healed. ABDOMEN: Benign. Bowel sounds positive. EXTREMITIES: Lower extremities without edema, clubbing, or cyanosis. DATABASE: ICD interrogation was reviewed, revealing adequately functioning single-chamber Medtronic ICD and sensing 7.1 mV, capture threshold 0.5 V, 0.4 milliseconds noted. LABORATORY DATA: No new labs. Chest x-ray from 02/18/2019 reveals uncomplicated ICD placement. Telemetry strips revealed sinus rhythm. No significant arrhythmias. ASSESSMENT AND PLAN: Ms. 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 She has severely reduced left ventricular ejection fraction persistently. She had a syncopal spell and she underwent a single-chamber implantable cardioverter defibrillator placement in fear of future ventricular arrhythmias unless she is recovering well. Plan is continued p.o. antibiotics for at least a week post implant. Routine wound check in 2 weeks. Standard heart failure therapy as per Dr. Ritter. For now, we will sign off. Call if I can be further help. Job ID: [id number]
--- NOTE | 2019-02-21 16:34 | DIS ---
DATE OF ADMISSION: 02/15/2019 DATE OF DISCHARGE: 02/21/2019 DIAGNOSES: 1. Complicated urinary tract infection with Pseudomonas species. 2. Cardiogenic syncope, stable. 3. Dhwxo-fq-[id number] hypoxemic respiratory failure. 4. Wjgkr-xq-dnhdkgm systolic congestive heart failure with ejection fraction of 15% to 20%. 5. Dilated cardiomyopathy with ejection fraction of 15% to 20%, status post automatic implantable cardioverter-defibrillator placement. 6. Acute renal failure superimposed on chronic kidney disease, stage 3. 7. Obstructive uropathy. CONSULTATIONS: 1. Dr. Warren with Urology Service. 2. Dr. March. 3. Dr. Mora with Cardiology Service. 4. Dr. Verduzco with Electrophysiology Service. PERTINENT LAB AND X-RAY FINDINGS: Sodium ranged between 133 to 139, potassium ranged between 4.1 to 5.2, creatinine ranged between 1.50 to 2.25. Estimated GFR ranged between 21 to 33. BNP 640. CBC showed a white blood cell count ranged between 8.1 to 11.3, hemoglobin ranged between 9.3 to 10.7. Urine culture dated 02/14/2019 showed greater than 100,[address] colonies of Pseudomonas aeruginosa. CT of the brain without contrast dated 02/14/2019, showed no acute intracranial process. Chronic ischemic white matter changes noted. Portable chest x-ray dated 02/14/2019, showed chronic lung changes. Thoracic aortic aneurysm noted, chronic. Lumbar spine radiographs dated 02/14/2019, showed degenerative changes. CT of the abdomen and pelvis dated 02/14/2019, showed left hydroureteronephrosis with distention of the urinary bladder. Left ureteral stent in good position. Right percutaneous nephrostomy tube in good position. 2D transthoracic echocardiogram dated 02/15/2019, showed ejection fraction of 15% to 20%. Diastolic dysfunction noted. Moderate biatrial enlargement. Moderate mitral regurgitation. Carotid Doppler study dated 02/15/2019 showed no hemodynamically significant stenosis. HOSPITAL COURSE: The patient was initially admitted after presenting status post syncopal episode after transferring from a wheelchair into the car. The patient was noted hypotensive and tachycardic, undergoing extensive evaluation in the hospital. The patient was initially given IV fluid replacement and underwent a cardiac and neurogenic workup. CT imaging of the brain was unremarkable for an acute event, and the patient was noted with depressed ejection fraction of 15% to 20%, concern for cardiogenic etiology of her presentation. The patient was also noted with acute kidney injury on chronic Lasix therapy. The patient was held on her diuretics and given IV fluids with overall correction of the acute kidney injury. The patient was also treated for underlying infectious process due to history of left ureteral stent and right percutaneous nephrostomy tube placement due to urinary retention. Pseudomonas species were documented and isolated on urine culture results. The patient was placed on appropriate antibiotic therapy, transitioning to oral ciprofloxacin. The patient was evaluated by Urology Service with recommendations for antibiotic therapy and conservative management. Due to the patient's cardiomyopathy and depressed ejection fraction, the patient was deemed an appropriate candidate, undergoing AICD placement without complication. The patient received ongoing pulmonary supportive management due to a long-standing history of chronic obstructive pulmonary disease and chronic hypoxic respiratory failure. The patient received bronchodilator therapy, oxygen supplementation, and prednisone without complication. The patient clinically stabilized and reached baseline functional status by the time of discharge. I have examined the patient at the time of discharge and discussed followup instructions. The patient verbalized understanding and agreement ready for discharge on 02/21/2019. DISCHARGE MEDICATIONS: 1. Albuterol sulfate nebulized solution 3 mL nebulized q.6 hours p.r.n. 2. Klor-Con 20 mEq p.o. daily. 3. Multivitamin 1 tablet p.o. daily. 4. Coreg 3.125 mg p.o. b.i.d. 5. Keflex 250 mg p.o. q.i.d. x7 days. 6. Ciprofloxacin 250 mg p.o. q.12 hours x10 days. 7. Lasix 40 mg p.o. daily. 8. Gabapentin 100 mg p.o. t.i.d. 9. Prednisone 40 mg p.o. q.a.m. FOLLOWUP: The patient may follow up with her primary care provider, Dr. Noni Alston within 7 days. The patient may follow up with Dr. Moralez with Pulmonology Service. The patient to follow up with Dr. Leo Warren with Urology Service. CONDITION ON DISCHARGE: Guarded. ACTIVITY: Ad-yossi. SPECIAL INSTRUCTIONS: No PILAR inhibitors due to hypotension. The patient to receive home health services with [facility] after discharge. DIET: Heart healthy. CODE STATUS: Full. DISPOSITION: Home with [facility] on 02/21/2019. TIME SPENT: Total time in preparing and coordinating discharge is 35 minutes. Job ID: [id number]
[2019-02-22] MEDS: Albuterol Sulfate 2.5 mg/3 ml Neb NEB SCH ×3 (00:42→13:07)
[2019-02-22] MEDS ORDERED: Fentanyl 100 MCG/2 ML VIAL ONE (08:12)
[2019-02-22] MEDS ORDERED: Ioversol 68 % 50 ML VIAL ONE (08:37)
[2019-02-22] MEDS ORDERED: Iothalamate Meglumine 60% 50 ML VIAL FS ONE (08:37)
[2019-02-22] MEDS: Ciprofloxacin Lactate/D5W 200 MG in Premix Bag 1 BAG IVPB SCH (08:55)
--- NOTE | 2019-02-22 09:40 | RAD ---
EXAM: Retrograde IVP HISTORY: Kidney stones COMPARISON: 05/24/2018 FINDINGS/IMPRESSION: Limited intraoperative fluoroscopic views of the retrograde IVP were submitted f or interpretation. A right percutaneous nephrostomy pigtail catheter is seen. Contrast is injected in the left renal collecting system. Moderate hydronephrosis is seen. No obvious filling defects are seen. A double-J ureteral stent is eventually placed which appears in good position. An IVC filter is seen.
[2019-02-22] MEDS ORDERED: Meperidine HCl/PF 25 MG/ML VIAL SLOW IVP PRN (09:56)
[2019-02-22] MEDS ORDERED: Ondansetron HCl/PF 4 MG/2 ML Vial IVP PRN (09:56)
[2019-02-22] MEDS ORDERED: Promethazine HCl 25 MG/ML VIAL IM PRN (09:56)
[2019-02-22] MEDS ORDERED: Ketorolac Tromethamine 30 MG/ML VIAL IVP PRN (09:56)
[2019-02-22] MEDS ORDERED: Morphine Sulfate 2 MG/ML SYRINGE SLOW IVP PRN (09:56)
[2019-02-22] MEDS ORDERED: Promethazine HCl 25 MG/ML VIAL SLOW IVP PRN (09:56)
--- NOTE | 2019-02-22 10:29 | OP ---
DATE OF PROCEDURE: 02/22/2019 PREOPERATIVE DIAGNOSES: Left ureteral stent, left ureteral obstruction, left hydronephrosis. POSTOPERATIVE DIAGNOSES: Left ureteral stent, left ureteral obstruction, left hydronephrosis. PROCEDURE PERFORMED: Cysto, removal of left stent, and replacement of left stent. ANESTHESIA: Minimal sedation. DRAINS PLACED: A 4.8 x 24 cm double-J stent. SPECIMENS REMOVED: Old stent, which was still patent. DESCRIPTION OF PROCEDURE: After obtaining written and verbal consent from the patient, she was taken to the operating suite. She was placed in a supine position on the treatment table. PlexiPulses were placed on her lower extremities and turned on. Her Cheek catheter was removed. She was given some mild sedation, gently placed in the dorsal lithotomy position and sterilely prepped and draped. Cystoscopy was performed with a 22-[place] sheath. This was well lubricated and passed under direct vision through the female urethra into the urinary bladder with aid of a 30-degree lens. The bladder was filled and emptied a couple of times and then the distal end of the indwelling left double-J stent was grasped with a pair of flexible grasping forceps and brought out through the urethral meatus. A 0.038 guidewire was fed through the stent and up into the region of the renal pelvis. The stent was removed over the wire and discarded. A 5-[place] Pollack catheter was placed over the guidewire and up into the region of the proximal ureter, renal pelvis and the wire was removed. About 3 mL of contrast was injected to fill out the proximal collecting system. At this point, the wire was replaced and the Pollack catheter was removed and we placed a 4.8 x 24 cm double-J stent over the wire, pushing up into place with aid of a pusher, so its proximal end coiled in the renal pelvis and its distal end coiled in the bladder when the wire was removed. The bladder was drained. The instruments were removed. A 16-[place] Cheek catheter was placed, about 15 mL placed in the balloon was hooked up to a drainage bag. She was taken out of the dorsal lithotomy position, awakened, extubated, taken by stretcher to the recovery room. Job ID: [id number]
[2019-02-22] MEDS: Docusate 100 MG CAP PO SCH (11:39)
[2019-02-22] MEDS: Gabapentin 100 MG CAP PO SCH ×2 (11:39→14:51)
[2019-02-22] MEDS: Potassium Chloride 20 MEQ TAB PO SCH (11:39)
[2019-02-22] MEDS: Cephalexin 250 MG CAP PO SCH ×3 (11:39→16:42)
[2019-02-22] MEDS: Stress 600 With Zinc 1 TAB PO SCH (11:50)
[2019-02-22] MEDS: predniSONE 20 MG TAB PO SCH (11:50)
[2019-02-22] MEDS: Carvedilol 3.125 MG TAB PO SCH ×2 (11:51→16:42)
[2019-02-22 11:55] VITALS: BP 121/72; TEMP 97.2
[2019-02-22] MEDS: Polyethylene Glycol 3350 17 GM Packet PO SCH (12:07)
--- NOTE | 2019-02-23 08:56 | DIS ---
DATE OF ADMISSION: 02/15/2019 DATE OF DISCHARGE: 02/22/2019 ADDENDUM: HOSPITAL COURSE: The patient's discharge was held for approximately 24 hours to complete a left ureteral stent exchange on 02/22/2019. The patient tolerated the procedure well without complication. I have examined the patient at the time of discharge and discussed followup instructions. The patient verbalizes understanding and in agreement and ready for discharge on 02/22/2019. Please see dictated discharge summary dated 02/21/2019, for full details and medication reconciliation. Job ID: [id number]
--- NOTE | 2019-02-26 12:18 | EKG ---
Test Reason : Blood Pressure : / mmHG Vent. Rate : 079 BPM Atrial Rate : 079 BPM P-R Int : 148 ms QRS Dur : 106 ms QT Int : 378 ms P-R-T Axes : -12 -42 129 degrees QTc Int : 433 ms Sinus rhythm with Premature atrial complexes Left axis deviation Incomplete left bundle branch block Left ventricular hypertrophy with repolarization abnormality Abnormal ECG No changes from 16-NOV-2018 Confirmed by ROSALINDA ASKEW ([id number]), medical editor MIKE REAL ([id number]) on 02/26/2019 12:18:02 PM Referred By: Confirmed By:ROSALINDA ASKEW
== END 2019-02-22 17:15 | disposition home health service (06) | DRG 226 ==
LOC: ERS 13:41 → 2SW 16:37 → 2NO 02-15 13:44 → OBSVTOIN 02-15 18:35
PROVIDERS: ADMIT Internal Medicine; ATTEND Internal Medicine
PROC: 0JH608Z Insertion of Defibrillator Generator into Chest Subcutaneous Tissue and Fascia, Open Approach (ICD-10-PCS; principal; 2019-02-18)
PROC: 02HK3KZ Insertion of Defibrillator Lead into Right Ventricle, Percutaneous Approach (ICD-10-PCS; 2019-02-18)
PROC: 3E0102A Introduction of Anti-Infective Envelope into Subcutaneous Tissue, Open Approach (ICD-10-PCS; 2019-02-18)
PROC: 0T778DZ Dilation of Left Ureter with Intraluminal Device, Via Natural or Artificial Opening Endoscopic (ICD-10-PCS; 2019-02-22)
PROC: 0TP98DZ Removal of Intraluminal Device from Ureter, Via Natural or Artificial Opening Endoscopic (ICD-10-PCS; 2019-02-22)
PROC: BT1FZZZ Fluoroscopy of Left Kidney, Ureter and Bladder (ICD-10-PCS; 2019-02-22)
DX: I42.0 Dilated cardiomyopathy (principal); I50.23 Acute on chronic systolic (congestive) heart failure; J96.21 Acute and chronic respiratory failure with hypoxia; I13.0 Hypertensive heart and chronic kidney disease with heart failure and stage 1 through stage 4 chronic kidney disease, or unspecified chronic kidney disease; N13.6 Pyonephrosis; N17.9 Acute kidney failure, unspecified; J44.1 Chronic obstructive pulmonary disease with (acute) exacerbation; I95.1 Orthostatic hypotension; B96.5 Pseudomonas (aeruginosa) (mallei) (pseudomallei) as the cause of diseases classified elsewhere; N13.9 Obstructive and reflux uropathy, unspecified; I25.10 Atherosclerotic heart disease of native coronary artery without angina pectoris; N18.3 Chronic kidney disease, stage 3 (moderate); D63.1 Anemia in chronic kidney disease; I48.91 Unspecified atrial fibrillation; C50.919 Malignant neoplasm of unspecified site of unspecified female breast; K59.00 Constipation, unspecified; Z88.2 Allergy status to sulfonamides; Z91.013 Allergy to seafood; Z79.51 Long term (current) use of inhaled steroids; Z79.899 Other long term (current) drug therapy; Z87.891 Personal history of nicotine dependence; Z99.81 Dependence on supplemental oxygen; Z74.01 Bed confinement status; Z91.041 Radiographic dye allergy status
CPT/HCPCS: 33249; 36005; 36415; 51702; 70450; 71045; 72100; 74176; 74420; 75820; 80048; 80053; 81003; 81015; 82533; 82553; 83880; 84484; 85025; 85610; 85730; 87077; 87086; 87186; 93005; 93306; 93798; 93880; 94640; 96365; C1758; C1769; C1777; C1786; J0696; J0744; J1650; J1956; J3010; J3490; J7512; J7611; J7620; Q0162; Q0163; Q9967